=== PATIENT | female | born 1990 | race African-American/Black ===

== ENCOUNTER 2017-06-18 15:50 | Emergency (ER) | payer SELFPAY ==
--- OUTSIDE RECORDS SUMMARY | 2017-06-18 15:52 | XMS REPORT ---
:1990 [facility] Address [address] [place] [address] Dr. Perez. [address] [place] [address] Care Team Providers Name Role Phone Unavailable Unavailable Unavailable Problems This patient has no known problems. Allergies, Adverse Reactions, Alerts This patient has no known allergies or adverse reactions. Medications This patient has no known medications. Encounters Start End Encounter Admission Attending Care Care Encounter Date/Time Date/Time Type Type Clinicians Facility Department ID 2016-09-29 2016-10-04 Outpatient [facility] [id number] 00:00:00 00:00:00
--- OUTSIDE RECORDS SUMMARY | 2017-06-18 15:52 | XMS REPORT | Clinical Summary ---
:1990 Author Organization [facility] Address [address] [place] [address] Care Team Providers Name Role Phone Asked, No Pcp Primary Care Provider Unavailable Allergies No Known Allergies Current Medications Prescription Sig. Disp. Refills Start Date End Date Status predniSONE (DELTASONE) Take 3 tablets 15 tablet 0 11/02/2016 11/07/2016 20 mg tablet (60 mg total) by mouth daily for 5 days. diphenhydrAMINE Take 2 tablets 20 tablet 0 11/02/2016 11/07/2016 (BENADRYL) 25 mg tablet (50 mg total) by mouth every 6 (six) hours for 20 doses. famotidine (PEPCID) 20 Take 1 tablet 14 tablet 0 11/02/2016 11/09/2016 MG tablet (20 mg total) by mouth 2 (two) times a day for 7 days. Active Problems Not on file Encounters Date Type Specialty Care Team Description 11/02/2016 Emergency Emergency Medicine Nellie Grimes MD Rash ( Primary Dx) 06/19/2016 Emergency Emergency Medicine Marcial Hanley MD after 06/17/2016 Social History Tobacco Use Types Packs/Day Years Used Date Never Smoker Alcohol Use Drinks/Week oz/Week Comments No Sex Assigned at Date Recorded Not on file Last Filed Vital Signs Vital Sign Reading Time Taken Blood Pressure 110/66 11/02/2016 9:48 PM CDT Pulse 78 11/02/2016 9:48 PM CDT Temperature 36.8 C (98.3 F) 11/02/2016 9:48 PM CDT Respiratory Rate 18 11/02/2016 9:48 PM CDT Oxygen Saturation 100% 11/02/2016 9:48 PM CDT Inhaled Oxygen Concentration - - Weight - - Height 165.1 cm (5' 5") 11/02/2016 9:48 PM CDT Body Mass Index - - Plan of Treatment Not on file Results hCG qualitative, urine screen (06/19/2016 1:10 AM) Component Value Ref Range hCG qualitative, urine NegativeComment: Sensitivity of HCG test: 25 mIU/ml Specimen Performing Laboratory [facility] DEPARTMENT OF PATHOLOGY AND GENOMIC MEDICINE [id number] [place] [id number] Urine culture screen (06/19/2016 1:10 AM) Component Value Ref Range Color, UA Yellow Appearance, UA Clear Specific gravity, UA 1.023 1.001 - 1.030 pH, UA 7.0 5.0 - 9.0 Protein, UA Negative Negative Glucose, UA Negative Negative Ketones, UA Negative Negative Bilirubin, UA Negative Negative Blood, UA Negative Negative Nitrite, UA Negative Negative Urobilinogen, UA <2.0 <2.0 E.U./dL Leukocyte esterase, UA Moderate (A) Negative Epithelial cells, UA 2 /HPF WBC, UA 6 (H) 0 - 4 /HPF RBC, UA 4 (H) 0 - 2 /HPF Bacteria, UA Few None seen Yeast, UA None seen Yeast with pseudohyphae, UA None seen Urine culture isolate Mixed Gram positive arvind 10-3 cfu/ml Specimen Performing Laboratory Urine [facility] DEPARTMENT OF PATHOLOGY AND GENOMIC MEDICINE [address] [place] [address] Narrative Specimen Site is : Clean catch Specimen Source is : Urine Gram stain (06/19/2016 1:10 AM) Component Value Ref Range Gram stain result No WBC's Rare Gram negative rods Specimen Performing Laboratory Urine [facility] DEPARTMENT OF PATHOLOGY AND GENOMIC MEDICINE [address] [place] [address] Narrative Specimen Site is : Clean catch Specimen Source is : Urine after 06/17/2016
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
[2017-06-18 16:56] LABS: Urine Blood NEGATIVE (NEG); Urine Glucose NEGATIVE (NEG); Urine Protein 1+ (NEG); Urine Specific Gravity 1.025 (1.005-1.030)
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
== END 2017-06-18 17:14 | disposition home or self-care (01) ==
LOC: ER 15:50
DX: S02.2XXA Fracture of nasal bones, initial encounter for closed fracture (principal); Y04.0XXA Assault by unarmed brawl or fight, initial encounter; Y92.9 Unspecified place or not applicable
CPT/HCPCS: 70486; 76377; 81003; 81025; 99284

== ENCOUNTER 2017-09-25 14:45 | Emergency (ER) | payer SELFPAY ==
--- OUTSIDE RECORDS SUMMARY | 2017-09-25 14:49 | XMS REPORT ---
:1990 [facility] Address [address] [place] [address] Dr. Steen [address] [place] [id number] Care Team Providers Name Role Phone Unavailable Unavailable Unavailable Problems This patient has no known problems. Allergies, Adverse Reactions, Alerts This patient has no known allergies or adverse reactions. Medications This patient has no known medications. Encounters Start End Encounter Admission Attending Care Care Encounter Date/Time Date/Time Type Type Clinicians Facility Department ID 2016-09-29 2016-10-04 Outpatient [facility] [id number] 00:00:00 00:00:00
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
[2017-09-25 18:16] LABS: Urine Bacteria <20 /HPF (<20); Urine Culture Reflex Order NOT NEEDED; Urine Mucus 3+ /HPF (NONE SEEN); Urine RBC >50 /HPF (NONE SEEN)
[2017-09-25 18:16] LABS: Urine Blood 3+ (NEG); Urine Glucose NEGATIVE (NEG); Urine Protein 1+ (NEG); Urine Specific Gravity 1.025 (1.005-1.030); Urine pH 6.5 (5.0-7.0)
[2017-09-25] MEDS ORDERED: AZITHROMYCIN 250 MG TAB ONE (18:48)
[2017-09-25] MEDS ORDERED: CEFTRIAXONE 250 MG/VIAL ONE (18:48)
[2017-09-25] MEDS ORDERED: LIDOCAINE 1% MPF 2 ML AMPULE ONE (18:48)
--- NOTE | 2017-09-25 18:49 | EDPHYS ---
Physician Documentation [facility] Name: Marielle oJnes Age: 26 yrs Sex: Female : 1990 Arrival Date: 09/25/2017 Time: 14:50 Bed 8 Private MD: None, None ED Physician iRck Willard HPI: 09/25 15:39 This 26 yrs old Black Female presents to ER via Ambulatory with complaints of Urinary jmm Problem. 15:39 The patient presents with urinary symptoms, dysuria, vaginal discharge. Onset: The jmm symptoms/episode began/occurred gradually. This is a 26 year old female with a history of asthma and frequent uti's that presents to the ED with vaginal itching, discharge, pelvic pressure, dysuria. . Historical: - Allergies: 15:16 No Known Allergies; sg - Home Meds: 15:16 None [Active]; sg - PMHx: 15:16 Asthma; sg - PSHx: 15:16 None; sg - Immunization history:: Adult Immunizations up to date. - Social history:: Smoking status: Patient/guardian denies using tobacco. - Ebola Screening: : Patient negative for fever greater than or equal to 101.5 degrees Fahrenheit, and additional compatible Ebola Virus Disease symptoms Patient denies exposure to infectious person Patient denies travel to an Ebola-affected area in the 21 days before illness onset No symptoms or risks identified at this time. ROS: 15:39 Constitutional: Negative for fever, chills, and weight loss, Cardiovascular: Negative jmm for chest pain, palpitations, and edema, Respiratory: Negative for shortness of breath, cough, wheezing, and pleuritic chest pain. 15:39 : Positive for urinary symptoms, burning with urination, vaginal discharge, vaginal itching. 15:39 All other systems are negative. Exam: 15:39 Head/Face: atraumatic. Chest/axilla: Normal chest wall appearance and motion. jmm Cardiovascular: Regular rate and rhythm. No edema appreciated Respiratory: Normal respirations, no respiratory distress appreciated 15:39 Constitutional: The patient appears in no acute distress, alert, awake. 15:39 Abdomen/GI: Inspection: abdomen appears normal, Bowel sounds: normal, Palpation: abdomen is soft and non-tender, in all quadrants. 15:39 Back: ROM is normal. 15:39 Skin: Appearance: Color: normal in color. 15:39 Neuro: Orientation: is normal, Mentation: is normal, Memory: is normal. 15:39 Psych: Behavior/mood is pleasant, cooperative. 15:39 : CVA tenderness, is absent, Pelvic Exam: External exam: is normal, Speculum exam: rosi mild bleeding, bimanual exam reveals left adnexal tenderness. Vital Signs: 15:13 BP 117 / 82; Pulse 95 MON; Resp 17 S; Pulse Ox 99% on R/A; Weight 57.15 kg (R); Height sg 5 ft. 3 in. (160.02 cm) (R); Pain 4/10; 18:11 BP 120 / 88; Pulse 84; Resp 14; Pulse Ox 100% on R/A; Pain 0/10; em1 15:13 Body Mass Index 22.32 (57.15 kg, 160.02 cm) sg MDM: 15:34 Patient medically screened. [facility] 18:44 Data reviewed: vital signs, nurses notes, radiologic studies, ultrasound. Counseling: I rosi had a detailed discussion with the patient and/or guardian regarding: the historical points, exam findings, and any diagnostic results supporting the discharge/admit diagnosis, radiology results, the need for outpatient follow up, to return to the emergency department if symptoms worsen or persist or if there are any questions or concerns that arise at home. ED course: US nml. Patient will be treated for PID. patient prescribed oral antibiotics. Advised to follow up with OB. Otherwise given strict return precautions. . 09/25 15:36 Order name: Urine Microscopic Only [facility] 09/25 15:36 Order name: Wet Prep [facility] 09/25 15:36 Order name: GC (GONORR/CHLAMYDIA) Probe [facility] 09/25 15:36 Order name: Urine Microscopic Only; Complete Time: 18:43 [facility] 09/25 15:36 Order name: Wet Prep; Complete Time: 17:12 [facility] 09/25 15:36 Order name: GC (Reagan/Chl) Probe CX/URE [facility] 09/25 15:36 Order name: Urine Dipstick-Ancillary (obtain specimen); Complete Time: 18:08 [facility] 09/25 17:20 Order name: US Pelvis Complete; Complete Time: 18:53 [facility] 09/25 18:06 Order name: Urine Dipstick--Ancillary (enter results) eb 08/11 18:06 Order name: Urine --Ancillary (enter results); Complete Time: 18:43 eb 09/25 18:07 Order name: Urine Dipstick-Ancillary; Complete Time: 18:43 EDMS Administered Medications: 18:51 Drug: Rocephin (cefTRIAXone) 250 mg Route: IM; Site: right gluteus; sv 18:51 Drug: AZITHromycin 1 grams Route: PO; sv Disposition: 09/26 07:10 Co-signature as Attending Physician, Rick Willard MD. rn Disposition: 09/25/17 18:48 Discharged to Home. Impression: Pelvic Pain, Dysuria. - Condition is Stable. - Discharge Instructions: Dysuria, Pelvic Pain, Female. - Prescriptions for Cephalexin 500 mg Oral Capsule - take 1 capsule by ORAL route every 12 hours for 7 days; 14 capsule. - Medication Reconciliation Form, Thank You Letter, Antibiotic Education, Prescription Opioid Use, Work release form form. - Follow up: Cesia Davies MD; When: 2 - 3 days; Reason: Recheck today's complaints, Continuance of care, Re-evaluation by your physician. Signatures: Dispatcher [employer] EDMS Rosa Avery RN RN sv Gay, Steven, RN RN sg Rajendra Esquivel PA PA [facility] Rick Willard MD MD rn Knox, Taylor, RN RN tl2 Corrections: (The following items were deleted from the chart) 09/25 19:14 18:48 09/25/2017 18:48 Discharged to Home. Impression: Pelvic Pain; Dysuria. Condition tl2 is Stable. Forms are Medication Reconciliation Form, Thank You Letter, Antibiotic Education, Prescription Opioid Use. Follow up: Cesia Davies; When: 2 - 3 days; Reason: Recheck today's complaints, Continuance of care, Re-evaluation by your physician. [email or web address]
--- NOTE | 2017-09-25 18:49 | ER ---
Nurse's Notes [facility] Name: Marielle Jones Age: 26 yrs Sex: Female : 1990 Arrival Date: 09/25/2017 Time: 14:50 Bed 8 Private MD: None, None Diagnosis: Pelvic Pain;Dysuria Presentation: 09/25 15:14 Presenting complaint: Patient states: Pressure in the pubic area, worsens with sg urination, hx of frequent urinary tract infections, so i think this is what it might be. have tried treating it at home with AZO, Cran tablets, Monastat, no relief. Transition of care: patient was not received from another setting of care. Onset of symptoms was September 25, 2017. Risk Assessment: Do you want to hurt yourself or someone else? Patient reports no desire to harm self or others. Initial Sepsis Screen: Does the patient meet any 2 criteria? No. Patient's initial sepsis screen is negative. Does the patient have a suspected source of infection? No. Patient's initial sepsis screen is negative. Care prior to arrival: None. 15:14 Method Of Arrival: Ambulatory sg 15:14 Acuity: CODY 4 sg Historical: - Allergies: 15:16 No Known Allergies; sg - Home Meds: 15:16 None [Active]; sg - PMHx: 15:16 Asthma; sg - PSHx: 15:16 None; sg - Immunization history:: Adult Immunizations up to date. - Social history:: Smoking status: Patient/guardian denies using tobacco. - Ebola Screening: : Patient negative for fever greater than or equal to 101.5 degrees Fahrenheit, and additional compatible Ebola Virus Disease symptoms Patient denies exposure to infectious person Patient denies travel to an Ebola-affected area in the 21 days before illness onset No symptoms or risks identified at this time. Screenin:40 Abuse screen: Denies threats or abuse. Denies injuries from another. Nutritional sv screening: No deficits noted. Tuberculosis screening: No symptoms or risk factors identified. Fall Risk None identified. Assessment: 15:20 General: Appears in no apparent distress. comfortable, slender, well groomed, well sg developed, well nourished, Behavior is calm, cooperative, appropriate for age. Pain: Complains of pain in suprapubic area Quality of pain is described as pressure, worsens with urination. Neuro: Level of Consciousness is awake, alert, obeys commands, Oriented to person, place, time, situation, Speech is normal, Facial symmetry appears normal. Cardiovascular: Capillary refill is brisk in bilateral fingers Patient's skin is warm and dry. Chest pain is denied. Respiratory: Airway is patent Respiratory effort is even, unlabored, Respiratory pattern is regular, symmetrical, Breath sounds are clear. GI: Abdomen is flat, non-distended, Bowel sounds. : Reports pain in suprapubic area with urination, vaginal itching. EENT: No signs and/or symptoms were reported regarding the EENT system. Derm: Skin is intact, is healthy with good turgor, Skin is dry, Skin is normal, Skin temperature is warm. Musculoskeletal: No signs and/or symptoms reported regarding the musculoskeletal system. 16:40 Reassessment: Patient appears in no apparent distress at this time. No changes from sv previously documented assessment. Patient and/or family updated on plan of care and expected duration. Pain level reassessed. Patient is alert, oriented x 3, equal unlabored respirations, skin warm/dry/pink. 18:51 Reassessment: Patient appears in no apparent distress at this time. No changes from sv previously documented assessment. Patient and/or family updated on plan of care and expected duration. Pain level reassessed. Patient is alert, oriented x 3, equal unlabored respirations, skin warm/dry/pink. Vital Signs: 15:13 BP 117 / 82; Pulse 95 MON; Resp 17 S; Pulse Ox 99% on R/A; Weight 57.15 kg (R); Height sg 5 ft. 3 in. (160.02 cm) (R); Pain 4/10; 18:11 BP 120 / 88; Pulse 84; Resp 14; Pulse Ox 100% on R/A; Pain 0/10; em1 15:13 Body Mass Index 22.32 (57.15 kg, 160.02 cm) ED Course: 14:50 Patient arrived in ED. sb2 14:51 None, None is Private Physician. sb2 15:07 Rajendra Esquivel PA is PHCP. m 15:07 Rikc Willard MD is Attending Physician. [facility] 15:13 Arm band placed on. sg 15:15 Triage completed. sg 16:40 Patient has correct armband on for positive identification. Placed in gown. Bed in low sv position. Door closed. Warm blanket given. Head of bed elevated. 16:40 Assist provider with pelvic exam: Set up pelvic tray. Performed by Rajendra LIAO Specimens sent to lab. Patient tolerated well. 17:59 Cash Mckeon, RN is Primary Nurse. sg 18:08 Urine Dipstick--Ancillary (enter results) Sent. sv 18:23 Ultrasound completed. Patient tolerated well. sg3 18:29 US Pelvis Complete In Process Unspecified. EDMS 18:47 Cesia Davies MD is Referral Physician. jmm 18:51 GC (GONORR/CHLAMYDIA) Probe Sent. sv 18:51 Wet Prep Sent. sv 18:51 Urine Microscopic Only Sent. sv 19:00 Patient did not have IV access during this emergency room visit. sg Administered Medications: 18:51 Drug: Rocephin (cefTRIAXone) 250 mg Route: IM; Site: right gluteus; sv 18:51 Drug: AZITHromycin 1 grams Route: PO; sv Outcome: 18:48 Discharge ordered by . [facility] 19:00 Discharged to home ambulatory, with friend. sg 19:00 Condition: good 19:00 Discharge instructions given to patient, Instructed on discharge instructions, follow up and referral plans. no drinking with medication, no driving heavy equipment, medication usage, safe sex practices, safety practices, Demonstrated understanding of instructions, follow-up care, medications, Prescriptions given X 1. 19:14 Patient left the ED. tl2 Signatures: Dispatcher [employer] Rosa Jones RN RN sv Gay, Steven, RN Rajendra Pelletier PA PA jmm Martinez, Eric em1 Belen Davis RN RN tl2 Melanie King sg3 Deja Fitzgerald sb2
--- NOTE | 2017-09-25 18:49 | RAD REPORT ---
EXAM DESCRIPTION: US - Pelvis Complete - 09/25/2017 6:29 pm CLINICAL HISTORY: pelvic pain Pelvic pain. COMPARISON: None FINDINGS: The uterus is normal in size, shape and echotexture. The uterus measures 6.9 x 6.1 x 3.9 c m. The endometrial stripe measures 8 mm, normal. Both ovaries are normal in size, shape and echotexture. The right ovary measures 4.7 x 2.2 x 2.2 cm. The left ovary measures 3.1 x 1.8 x 1.7 cm. No ovarian or parovarian lesions. No adnexal masses. Normal Doppler blood flow was demonstrated to both ovaries. No significant pelvic ascites. IMPRESSION: Unremarkable study.
[2017-09-29 11:21] LABS: C.trachomatis RNA,TMA Detected (Not Detected)
== END 2017-09-25 19:14 | disposition home or self-care (01) ==
LOC: ER 14:45
DX: R10.2 Pelvic and perineal pain (principal); R30.0 Dysuria
CPT/HCPCS: 76856; 81003; 81015; 81025; 87210; 87490; 87590; 96372; 99284; J0696; J2001

== ENCOUNTER 2018-02-01 15:02 | Emergency (ER) | payer SELFPAY ==
--- OUTSIDE RECORDS SUMMARY | 2018-02-01 15:06 | XMS REPORT ---
:1990 [facility] Address [address] [place] [address] Dr. Ste[address] [place] [id number] Care Team Providers Name Role Phone Unavailable Unavailable Unavailable Problems This patient has no known problems. Allergies, Adverse Reactions, Alerts This patient has no known allergies or adverse reactions. Medications This patient has no known medications. Encounters Start End Encounter Admission Attending Care Care Encounter Date/Time Date/Time Type Type Clinicians Facility Department ID 2016-09-29 2016-10-04 Outpatient [facility] [id number] 00:00:00 00:00:00
--- OUTSIDE RECORDS SUMMARY | 2018-02-01 15:06 | XMS REPORT | Clinical Summary ---
:1990 Author Organization [facility] Address [address] [place] [address] Care Team Providers Name Role Phone Asked, No Pcp Primary Care Provider Unavailable Allergies No Known Allergies Medications Not on file Active Problems Not on file Social History Tobacco Use Types Packs/Day Years Used Date Never Smoker Alcohol Use Drinks/Week oz/Week Comments No Sex Assigned at Date Recorded Not on file Job Start Date Occupation Industry Not on file Not on file Not on file Travel History Travel Start Travel End No recent travel history available. Last Filed Vital Signs Not on file Plan of Treatment Not on file Results Not on fileafter 01/31/2017 Advance Directives Patient has advance care planning documents on file. For more information, please contact:[address] [address]
[2018-02-01 16:08] LABS: Urine Blood NEGATIVE (NEG); Urine Glucose NEGATIVE (NEG); Urine Protein NEGATIVE (NEG); Urine Specific Gravity >1.030 (1.005-1.030); Urine pH 5.5 (5.0-7.0)
[2018-02-01 16:10] LABS: Urine Bacteria 20-50 /HPF (<20); Urine Culture Reflex Order REFLEXED; Urine RBC <5 /HPF (NONE SEEN)
[2018-02-01] MEDS ORDERED: metroNIDAZOLE 500 MG TABLET ONE ×2 (16:48→16:51)
[2018-02-01] MEDS ORDERED: FLUCONAZOLE 100 MG TAB ONE (16:48)
--- NOTE | 2018-02-01 16:49 | ER ---
Nurse's Notes [facility] Name: Marielle Jones Age: 27 yrs Sex: Female : 1990 Arrival Date: 02/01/2018 Time: 15:06 Bed 18 Private MD: None, None Diagnosis: Vaginitis, vulvitis and vulvovaginitis in diseases classified elsewhere Presentation: 02/01 15:10 Presenting complaint: Patient states: vaginal itching and white discharge for the past ch 2 days. sexually active, without protection. Transition of care: patient was not received from another setting of care. Onset of symptoms was January 30, 2018. Risk Assessment: Do you want to hurt yourself or someone else? Patient reports no desire to harm self or others. Initial Sepsis Screen: Does the patient meet any 2 criteria? No. Patient's initial sepsis screen is negative. Does the patient have a suspected source of infection? No. Patient's initial sepsis screen is negative. Care prior to arrival: None. 15:10 Method Of Arrival: Ambulatory 15:10 Acuity: CODY 4 Triage Assessment: 15:11 General: Appears in no apparent distress. comfortable, Behavior is calm, cooperative. ch Pain: Denies pain. : Reports vaginal itching. 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 - Social history:: Smoking status: Patient/guardian denies using tobacco, Patient uses alcohol, occasionally. - Ebola Screening: : Patient negative for fever greater than or equal to 101.5 degrees Fahrenheit, and additional compatible Ebola Virus Disease symptoms Patient denies exposure to infectious person Patient denies travel to an Ebola-affected area in the 21 days before illness onset No symptoms or risks identified at this time. Screenin:03 Abuse screen: Denies threats or abuse. Denies injuries from another. Nutritional mg2 screening: No deficits noted. Tuberculosis screening: No symptoms or risk factors identified. Fall Risk None identified. Assessment: 16:02 General: Appears in no apparent distress. comfortable, Behavior is calm, cooperative. mg2 Pain: Denies pain. Neuro: Level of Consciousness is awake, alert, obeys commands, Oriented to person, place, time, situation. Cardiovascular: Capillary refill < 3 seconds Patient's skin is warm and dry. Respiratory: Airway is patent Respiratory effort is even, unlabored, Respiratory pattern is regular, symmetrical. GI: No signs and/or symptoms were reported involving the gastrointestinal system. : No signs and/or symptoms were reported regarding the genitourinary system. : Reports vaginal itching, since for awhile. EENT: No signs and/or symptoms were reported regarding the EENT system. Derm: Skin is intact, is healthy with good turgor, Skin is pink, warm \T\ dry. normal. Musculoskeletal: No signs and/or symptoms reported regarding the musculoskeletal system. 16:46 Reassessment: Patient appears in no apparent distress at this time. Patient and/or mg2 family updated on plan of care and expected duration. Pain level reassessed. Patient is alert, oriented x 3, equal unlabored respirations, skin warm/dry/pink. Vital Signs: 15:11 BP 117 / 79; Pulse 71; Resp 16; Temp 97.9; Pulse Ox 99% on R/A; Weight 54.43 kg; Height 5 ft. 3 in. (160.02 cm); Pain 0/10; 16:46 BP 120 / 80; Pulse 89; Resp 18; Pulse Ox 100% on R/A; Pain 0/10; mg2 15:11 Body Mass Index 21.26 (54.43 kg, 160.02 cm) ED Course: 15:06 Patient arrived in ED. sb2 15:06 None, None is Private Physician. sb2 15:07 Viki Ballard FNP-C is [facility]. snw 15:07 Cristhian Sims MD is Attending Physician. snw 15:11 Triage completed. ch 15:11 Arm band placed on left wrist. Patient placed in an exam room, on a stretcher. ch 15:31 Keanu Moody, DEISY is Primary Nurse. mg2 16:03 Patient has correct armband on for positive identification. mg2 16:03 No provider procedures requiring assistance completed. Patient did not have IV access mg2 during this emergency room visit. Administered Medications: 16:45 Drug: DiFLUcan 200 mg Route: PO; mg2 17:04 Follow up: Response: No adverse reaction; Medication administered at discharge. mg2 16:46 Drug: Flagyl 1 grams Route: PO; mg2 17:04 Follow up: Response: No adverse reaction; Medication administered at discharge. mg2 16:46 Drug: Flagyl 1 grams Route: PO; mg2 17:04 Follow up: Response: No adverse reaction; Medication administered at discharge. mg2 Outcome: 16:48 Discharge ordered by . lefty 17:05 Discharged to home ambulatory. mg2 17:05 Condition: stable 17:05 Discharge instructions given to patient, Instructed on discharge instructions, follow up and referral plans. medication usage, Demonstrated understanding of instructions, follow-up care, medications, Prescriptions given X 1. 17:05 Patient left the ED. mg2 Signatures: Jazmine Avalos, RN RN Viki Ballard, ELECTRICAL ENGINEERING DESIGNER-C ELECTRICAL ENGINEERING DESIGNER-Csnw Deja Fitzgerald sb2 Keanu Moody RN RN mg2 Corrections: (The following items were deleted from the chart) 15:12 15:10 Presenting complaint: Patient states: vaginal itching and white discharge for the ch past 2 days. 15:13 15:10 Acuity: CODY 5 ch ch
--- NOTE | 2018-02-01 16:49 | EDPHYS ---
Physician Documentation [facility] Name: Marielle Jones Age: 27 yrs Sex: Female : 1990 Arrival Date: 02/01/2018 Time: 15:06 Bed 18 Private MD: None, None ED Physician Cristhian Sims HPI: 02/01 15:38 This 27 yrs old Black Female presents to ER via Ambulatory with complaints of Vaginal snw Discharge, Vaginal Itching. 15:38 The patient presents with perineal itching, vaginal discharge, patient has had similar snw discharge in the past, pt states she has had UTI, BV, and yeast infections in the past. Onset: The symptoms/episode began/occurred suddenly, 4 day(s) ago, and became persistent. Associated signs and symptoms: Pertinent positives: white vag dc. Severity of symptoms: At their worst the symptoms were itching "really bad". The patient has experienced similar episodes in the past. The patient has not recently seen a physician. 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 - Social history:: Smoking status: Patient/guardian denies using tobacco, Patient uses alcohol, occasionally. - Ebola Screening: : Patient negative for fever greater than or equal to 101.5 degrees Fahrenheit, and additional compatible Ebola Virus Disease symptoms Patient denies exposure to infectious person Patient denies travel to an Ebola-affected area in the 21 days before illness onset No symptoms or risks identified at this time. ROS: 15:38 Constitutional: Negative for fever, chills, and weight loss, Eyes: Negative for injury, snw pain, redness, and discharge, ENT: Negative for injury, pain, and discharge, Neck: Negative for injury, pain, and swelling, Cardiovascular: Negative for chest pain, palpitations, and edema, Respiratory: Negative for shortness of breath, cough, wheezing, and pleuritic chest pain, Abdomen/GI: Negative for abdominal pain, nausea, vomiting, diarrhea, and constipation, Back: Negative for injury and pain, MS/Extremity: Negative for injury and deformity, Skin: Negative for injury, rash, and discoloration, Neuro: Negative for headache, weakness, numbness, tingling, and seizure, Psych: Negative for depression, anxiety, suicide ideation, homicidal ideation, and hallucinations. 15:38 : Positive for vaginal discharge, vaginal itching. Exam: 15:37 Constitutional: This is a well developed, well nourished patient who is awake, alert, snw and in no acute distress. Head/Face: Normocephalic, atraumatic. Eyes: Pupils equal round and reactive to light, extra-ocular motions intact. Lids and lashes normal. Conjunctiva and sclera are non-icteric and not injected. Cornea within normal limits. Periorbital areas with no swelling, redness, or edema. ENT: Nares patent. No nasal discharge, no septal abnormalities noted. Tympanic membranes are normal and external auditory canals are clear. Oropharynx with no redness, swelling, or masses, exudates, or evidence of obstruction, uvula midline. Mucous membranes moist. Neck: Trachea midline, no thyromegaly or masses palpated, and no cervical lymphadenopathy. Supple, full range of motion without nuchal rigidity, or vertebral point tenderness. No Meningismus. Chest/axilla: Normal chest wall appearance and motion. Nontender with no deformity. No lesions are appreciated. Cardiovascular: Regular rate and rhythm with a normal S1 and S2. No gallops, murmurs, or rubs. Normal PMI, no JVD. No pulse deficits. Respiratory: Lungs have equal breath sounds bilaterally, clear to auscultation and percussion. No rales, rhonchi or wheezes noted. No increased work of breathing, no retractions or nasal flaring. Abdomen/GI: Soft, non-tender, with normal bowel sounds. No distension or tympany. No guarding or rebound. No evidence of tenderness throughout. Back: No spinal tenderness. No costovertebral tenderness. Full range of motion. Pelvic Exam: Normal external genitalia. White. mucoid discharge, fishy odor. Skin: Warm, dry with normal turgor. Normal color with no rashes, no lesions, and no evidence of cellulitis. MS/ Extremity: Pulses equal, no cyanosis. Neurovascular intact. Full, normal range of motion. Neuro: Awake and alert, GCS 15, oriented to person, place, time, and situation. Cranial nerves II-XII grossly intact. Motor strength 5/5 in all extremities. Sensory grossly intact. Cerebellar exam normal. Normal gait. Vital Signs: 15:11 BP 117 / 79; Pulse 71; Resp 16; Temp 97.9; Pulse Ox 99% on R/A; Weight 54.43 kg; Height ch 5 ft. 3 in. (160.02 cm); Pain 0/10; 16:46 BP 120 / 80; Pulse 89; Resp 18; Pulse Ox 100% on R/A; Pain 0/10; mg2 15:11 Body Mass Index 21.26 (54.43 kg, 160.02 cm) ch MDM: 15:13 Patient medically screened. ngoc 16:49 Data reviewed: vital signs, nurses notes. Data interpreted: Pulse oximetry: on room air snw is 100 %. Interpretation: normal. Counseling: I had a detailed discussion with the patient and/or guardian regarding: the historical points, exam findings, and any diagnostic results supporting the discharge/admit diagnosis, the presence of at least one elevated blood pressure reading (>120/80) during this emergency department visit, lab results, the need for outpatient follow up, to return to the emergency department if symptoms worsen or persist or if there are any questions or concerns that arise at home. Special discussion: Based on the history and exam findings, there is no indication for further emergent testing or inpatient evaluation. I discussed with the patient/guardian the need to see the primary care provider for further evaluation of the symptoms. 02/01 15:30 Order name: Urine Microscopic Only; Complete Time: 16:14 snw 02/01 16:02 Order name: Urine Dipstick--Ancillary (enter results); Complete Time: 16:14 bd 02/01 16:02 Order name: Urine --Ancillary (enter results); Complete Time: 16:14 bd 02/01 16:12 Order name: Urine Culture EDMO 02/01 15:30 Order name: Urine Test (obtain specimen); Complete Time: 15:36 snw 02/01 15:30 Order name: Urine Dipstick-Ancillary (obtain specimen); Complete Time: 15:36 snw Administered Medications: 16:45 Drug: DiFLUcan 200 mg Route: PO; mg2 17:04 Follow up: Response: No adverse reaction; Medication administered at discharge. mg2 16:46 Drug: Flagyl 1 grams Route: PO; mg2 17:04 Follow up: Response: No adverse reaction; Medication administered at discharge. mg2 16:46 Drug: Flagyl 1 grams Route: PO; mg2 17:04 Follow up: Response: No adverse reaction; Medication administered at discharge. mg2 Disposition: 02/02 06:40 Co-signature as Attending Physician, Cristhian Sims MD I agree with the assessment and ngoc plan of care. Disposition: 02/01/18 16:48 Discharged to Home. Impression: Vaginitis, vulvitis and vulvovaginitis in diseases classified elsewhere. - Condition is Stable. - Discharge Instructions: Bacterial Vaginosis, How to Take a Sitz Bath, Vaginal Yeast Infection, Pediatric, Vaginitis. - Prescriptions for Fluconazole 200 mg Oral Tablet - take 1 tablet by ORAL route once wkly; 2 tablet. - Medication Reconciliation Form, Thank You Letter, Antibiotic Education, Prescription Opioid Use form. - Follow up: Private Physician; When: 1 - 2 days; Reason: Recheck today's complaints, Continuance of care, Re-evaluation by your physician. Follow up: Emergency Department; When: As needed; Reason: Worsening of condition. Signatures: Dispatcher [employer] EDJazmine Najera, Cristhian Alonzo RN, ch, MD MD cha Therrien, Shelly, DROP HAMMER SETTER UP-C DROP HAMMER SETTER UP-Csnw Keanu Moody RN RN mg2 Corrections: (The following items were deleted from the chart) 02/01 17:05 16:48 02/01/2018 16:48 Discharged to Home. Impression: Vaginitis, vulvitis and mg2 vulvovaginitis in diseases classified elsewhere. Condition is Stable. Forms are Medication Reconciliation Form, Thank You Letter, Antibiotic Education, Prescription Opioid Use. Follow up: Private Physician; When: 1 - 2 days; Reason: Recheck today's complaints, Continuance of care, Re-evaluation by your physician. Follow up: Emergency Department; When: As needed; Reason: Worsening of condition. snw
== END 2018-02-01 17:05 | disposition home or self-care (01) ==
LOC: ER 15:02
DX: N77.1 Vaginitis, vulvitis and vulvovaginitis in diseases classified elsewhere (principal)
CPT/HCPCS: 81003; 81015; 81025; 87086; 87088; 99283

== ENCOUNTER 2018-02-16 19:29 | Emergency (ER) | payer SELFPAY ==
--- OUTSIDE RECORDS SUMMARY | 2018-02-16 19:31 | XMS REPORT | Clinical Summary ---
:1990 [facility] Address [address] [place] [address] Care Team Providers Name Role Phone Asked, No Pcp Primary Care Provider Unavailable Allergies No Known Allergies Medications Not on file Active Problems Not on file Encounters Date Type Specialty Care Team Description 02/16/2018 Emergency Emergency Medicine after 02/15/2017 Social History Tobacco Use Types Packs/Day Years Used Date Never Smoker Alcohol Use Drinks/Week oz/Week Comments No Sex Assigned at Date Recorded Not on file Job Start Date Occupation Industry Not on file Not on file Not on file Travel History Travel Start Travel End No recent travel history available. 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 For more information, please contact:[address] [address]
--- OUTSIDE RECORDS SUMMARY | 2018-02-16 19:31 | XMS REPORT ---
:1990 [facility] Address [address] [place] [address] Dr. Ste[address] [place] [id number] Care Team Providers Name Role Phone Unavailable Unavailable Unavailable Problems This patient has no known problems. Allergies, Adverse Reactions, Alerts This patient has no known allergies or adverse reactions. Medications This patient has no known medications. Encounters Start End Encounter Admission Attending Care Care Encounter Date/Time Date/Time Type Type Clinicians Facility Department ID 2016-09-29 2016-10-04 Outpatient [facility] [id number] 00:00:00 00:00:00
[2018-02-16 21:29] LABS: Urine Bacteria >50 /HPF (<20); Urine Culture Reflex Order NOT NEEDED; Urine RBC <5 /HPF (NONE SEEN)
[2018-02-16 21:30] LABS: Urine Mucus 3+ /HPF (NONE SEEN)
--- NOTE | 2018-02-16 21:46 | ER ---
Nurse's Notes [facility] Name: Marielle Jones Age: 27 yrs Sex: Female : 1990 Arrival Date: 02/16/2018 Time: 19:52 Bed 6 Private MD: Diagnosis: STD exposure Presentation: 02/16 20:22 Presenting complaint: Patient states: Reports being exposed to chlamydia on Wednesday. aj Patient also reports that her vaginal symptoms have not full resolved since her last visit 02/01 for similar complaint. Transition of care: patient was not received from another setting of care. Onset of symptoms was February 16, 2018. Risk Assessment: Do you want to hurt yourself or someone else? Patient reports no desire to harm self or others. Initial Sepsis Screen: Does the patient meet any 2 criteria? No. Patient's initial sepsis screen is negative. Does the patient have a suspected source of infection? No. Patient's initial sepsis screen is negative. Care prior to arrival: None. 20:22 Method Of Arrival: Ambulatory 20:22 Acuity: CODY 3 aj Triage Assessment: 20:23 General: Appears in no apparent distress. comfortable, Behavior is calm, cooperative, aj appropriate for age. Pain: Denies pain. Neuro: Level of Consciousness is awake, alert, obeys commands, Oriented to person, place, time, situation, Appropriate for age. Respiratory: Airway is patent Respiratory effort is even, unlabored, Respiratory pattern is regular, symmetrical. : Reports vaginal itching. Derm: Skin is intact, is healthy with good turgor, Skin is pink, warm \T\ dry. normal. 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 - Social history:: Smoking status: Patient/guardian denies using tobacco. - Ebola Screening: : Patient negative for fever greater than or equal to 101.5 degrees Fahrenheit, and additional compatible Ebola Virus Disease symptoms Patient denies exposure to infectious person Patient denies travel to an Ebola-affected area in the 21 days before illness onset No symptoms or risks identified at this time. Screenin:55 Abuse screen: Denies threats or abuse. Denies injuries from another. Nutritional ak1 screening: No deficits noted. Tuberculosis screening: No symptoms or risk factors identified. Fall Risk None identified. Assessment: 20:55 Reassessment: pt called from [facility] and sent to obtain a urine sample. ak1 21:02 Reassessment: Patient appears in no apparent distress at this time. General: Appears in ak1 no apparent distress. Pain: Denies pain. Neuro: No deficits noted. Cardiovascular: No deficits noted. Respiratory: No deficits noted. GI: No signs and/or symptoms were reported involving the gastrointestinal system. Abdomen is flat. : pt stated she found out today that her partner she had intercourse with on Wednesday was dx chlamydia. 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 pt denies any vaginal discharge, denies any vaginal pain, denies any pain with urination, denies any abd pain. EENT: No signs and/or symptoms were reported regarding the EENT system. Derm: No signs and/or symptoms reported regarding the dermatologic system. Musculoskeletal: No signs and/or symptoms reported regarding the musculoskeletal system. Vital Signs: 20:23 BP 114 / 80; Pulse 102; Resp 20; Temp 98.4; Pulse Ox 100% on R/A; Weight 54.43 kg; aj Height 5 ft. 3 in. (160.02 cm); 21:02 BP 112 / 86; Pulse 109; Resp 18; Pulse Ox 100% on R/A; ak1 21:47 BP 110 / 84; Pulse 100; Resp 18; Temp 98.4; Pulse Ox 100% on R/A; Pain 0/10; ak1 20:23 Body Mass Index 21.26 (54.43 kg, 160.02 cm) ED Course: 19:52 Patient arrived in ED. es 20:23 Triage completed. aj 20:23 Arm band placed on right wrist. Patient placed in waiting room, Patient notified of wait time. 20:54 Melissa Anderson, RN is Primary Nurse. ak1 21:00 Orville Benton MD is Attending Physician. tw4 21:06 Patient has correct armband on for positive identification. Bed in low position. Call ak1 light in reach. Side rails up X 1. Pulse ox on. NIBP on. Door closed. Lights dimmed. 21:42 Urine Dipstick--Ancillary (enter results) Sent. ak1 21:48 No provider procedures requiring assistance completed. Patient did not have IV access ak1 during this emergency room visit. Administered Medications: No medications were administered Outcome: 21:45 Discharge ordered by . tw4 21:48 Discharged to home ambulatory. ak1 21:48 Condition: good 21:48 Discharge instructions given to patient, Instructed on discharge instructions, follow up and referral plans. no drinking with medication, no driving heavy equipment, medication usage, safe sex practices, control, Demonstrated understanding of instructions, follow-up care, medications, Prescriptions given X 1. 21:57 Patient left the ED. ak1 Signatures: Sarahi Monsalve, RN Crista Jones Amber RN RN ak1 Orville Benton MD MD tw4
--- NOTE | 2018-02-16 21:46 | EDPHYS ---
Physician Documentation [facility] Name: Marielle Jones Age: 27 yrs Sex: Female : 1990 Arrival Date: 02/16/2018 Time: 19:52 Bed 6 Private MD: ED Physician Orville Benton HPI: 02/17 02:40 This 27 yrs old Black Female presents to ER via Ambulatory with complaints of STD tw4 Exposure. 02:40 The patient presents with a possible exposure to a sexually transmitted disease. Onset: tw4 The symptoms/episode began/occurred today. Modifying factors: The symptoms are alleviated by nothing, the symptoms are aggravated by nothing. Associated signs and symptoms: The patient has no apparent associated signs or symptoms. Severity of symptoms: At their worst the symptoms were moderate, in the emergency department the symptoms. The patient is sexually active, reportedly has a single partner. The patient has not experienced similar symptoms in the past. 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 - Social history:: Smoking status: Patient/guardian denies using tobacco. - Ebola Screening: : Patient negative for fever greater than or equal to 101.5 degrees Fahrenheit, and additional compatible Ebola Virus Disease symptoms Patient denies exposure to infectious person Patient denies travel to an Ebola-affected area in the 21 days before illness onset No symptoms or risks identified at this time. ROS: 02/17 02:40 Positive for vaginal discharge, Negative for injury or acute deformity, urinary tw4 symptoms, urinary frequency, hematuria, pelvic pain, burning with urination, difficulty urinating, bladder incontinence, vaginal itching, menstrual abnormality. Constitutional: Negative for fever, chills, and weight loss, Eyes: Negative for injury, pain, redness, and discharge, Cardiovascular: Negative for chest pain, palpitations, and edema, Respiratory: Negative for shortness of breath, cough, wheezing, and pleuritic chest pain, Abdomen/GI: Negative for abdominal pain, nausea, vomiting, diarrhea, and constipation, Back: Negative for injury and pain. : Positive for vaginal discharge, vaginal itching. Exam: 02:40 Constitutional: This is a well developed, well nourished patient who is awake, alert, tw4 and in no acute distress. Head/Face: Normocephalic, atraumatic. Chest/axilla: Normal chest wall appearance and motion. Nontender with no deformity. No lesions are appreciated. Cardiovascular: Regular rate and rhythm with a normal S1 and S2. No gallops, murmurs, or rubs. Normal PMI, no JVD. No pulse deficits. Respiratory: Lungs have equal breath sounds bilaterally, clear to auscultation and percussion. No rales, rhonchi or wheezes noted. No increased work of breathing, no retractions or nasal flaring. Abdomen/GI: Soft, non-tender, with normal bowel sounds. No distension or tympany. No guarding or rebound. No evidence of tenderness throughout. Back: No spinal tenderness. No costovertebral tenderness. Full range of motion. MS/ Extremity: Pulses equal, no cyanosis. Neurovascular intact. Full, normal range of motion. Neuro: Awake and alert, GCS 15, oriented to person, place, time, and situation. Cranial nerves II-XII grossly intact. Motor strength 5/5 in all extremities. Sensory grossly intact. Cerebellar exam normal. Normal gait. Vital Signs: 02/16 20:23 BP 114 / 80; Pulse 102; Resp 20; Temp 98.4; Pulse Ox 100% on R/A; Weight 54.43 kg; aj Height 5 ft. 3 in. (160.02 cm); 21:02 BP 112 / 86; Pulse 109; Resp 18; Pulse Ox 100% on R/A; ak1 21:47 BP 110 / 84; Pulse 100; Resp 18; Temp 98.4; Pulse Ox 100% on R/A; Pain 0/10; ak1 20:23 Body Mass Index 21.26 (54.43 kg, 160.02 cm) aj MDM: 21:00 Patient medically screened. tw4 02/17 02:40 Differential diagnosis: urinary tract infection, vaginosis. Data reviewed: vital signs, tw4 nurses notes. Data interpreted: Pulse oximetry: Interpretation: normal. Counseling: I had a detailed discussion with the patient and/or guardian regarding: the historical points, exam findings, and any diagnostic results supporting the discharge/admit diagnosis. Special discussion: I discussed with the patient/guardian in detail that at this point there is no indication for admission to the hospital. It is understood, however, that if the symptoms persist or worsen the patient needs to return immediately for re-evaluation. 02/16 20:56 Order name: Urine Culture [facility] 02/16 20:56 Order name: Urine Microscopic Only; Complete Time: 21:44 [facility] 02/16 20:56 Order name: Urine Dipstick-Ancillary (obtain specimen); Complete Time: 21:06 [facility] 02/16 21:37 Order name: Urine Dipstick--Ancillary (enter results) 02/16 21:37 Order name: Urine --Ancillary (enter results) 02/16 21:38 Order name: Urine Dipstick-Ancillary [facility] 02/16 20:56 Order name: Urine Test (obtain specimen); Complete Time: 21:07 [facility] Administered Medications: No medications were administered Disposition: 02/16/18 21:45 Discharged to Home. Impression: STD exposure. - Condition is Stable. - Discharge Instructions: Sexually Transmitted Disease, [id number]. - Prescriptions for Doxycycline Monohydrate 100 mg Oral Tablet - take 1 tablet by ORAL route every 12 hours for 10 days; 20 tablet. - Medication Reconciliation Form, Thank You Letter, Antibiotic Education, Prescription Opioid Use form. - Follow up: Private Physician; When: Upon discharge from the Emergency Department; Reason: Recheck today's complaints, Continuance of care. - Problem is new. - Symptoms have improved. Signatures: Dispatcher [employer] EDSarahi Carvajal RN RN aj Krenek, Amber, RN RN ak1 Orville Benton MD MD tw4 Corrections: (The following items were deleted from the chart) 02/16 21:57 21:45 02/16/2018 21:45 Discharged to Home. Impression: STD exposure. Condition is ak1 Stable. Forms are Medication Reconciliation Form, Thank You Letter, Antibiotic Education, Prescription Opioid Use. Follow up: Private Physician; When: Upon discharge from the Emergency Department; Reason: Recheck today's complaints, Continuance of care. Problem is new. Symptoms have improved. tw4
[2018-02-16 21:53] LABS: Urine Blood NEGATIVE (NEG); Urine Glucose NEGATIVE (NEG); Urine Protein 1+ (NEG)
== END 2018-02-16 21:57 | disposition home or self-care (01) ==
LOC: ER 19:29
DX: Z20.2 Contact with and (suspected) exposure to infections with a predominantly sexual mode of transmission (principal)
CPT/HCPCS: 81003; 81015; 81025; 87086; 87088; 99283

== ENCOUNTER 2018-06-30 16:39 | Emergency (ER) | payer SELFPAY ==
--- OUTSIDE RECORDS SUMMARY | 2018-06-30 16:42 | XMS REPORT | Clinical Summary ---
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 For more information, please contact:[address] [address]
--- OUTSIDE RECORDS SUMMARY | 2018-06-30 16:42 | XMS REPORT ---
:1990 [facility] Address [address] [place] [address] Dr. Steen [address] [place] [id number] Care Team Providers Name Role Phone Unavailable Unavailable Unavailable Problems This patient has no known problems. Allergies, Adverse Reactions, Alerts This patient has no known allergies or adverse reactions. Medications This patient has no known medications. Encounters Start End Encounter Admission Attending Care Care Encounter Date/Time Date/Time Type Type Clinicians Facility Department ID 2016-09-29 2016-10-04 Outpatient [facility] [id number] 00:00:00 00:00:00
--- NOTE | 2018-06-30 17:29 | EDPHYS ---
Physician Documentation [facility] Name: Marielle Jones Age: 27 yrs Sex: Female : 1990 Arrival Date: 06/30/2018 Time: 16:43 Bed 12 Private MD: None, None ED Physician Tushar Baldwin HPI: 06/30 17:26 This 27 yrs old Black Female presents to ER via Ambulatory with complaints of Vaginal kb Itching. 17:26 The patient presents with perineal itching. kb 17:26 Onset: The symptoms/episode began/occurred 3 week(s) ago. Modifying factors: The kb symptoms are alleviated by nothing, the symptoms are aggravated by nothing. Associated signs and symptoms: Pertinent positives: vaginal itching. Severity of symptoms: At their worst the symptoms were moderate, in the emergency department the symptoms are unchanged. The patient has not experienced similar symptoms in the past. The patient has not recently seen a physician. Pt reports vaginal itching and irritation for about 3 weeks. Reports she used monistat and it didn't help so she wanted to make sure she didn't have a UTI. 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 - Social history:: Smoking status: unknown. - Ebola Screening: : Patient negative for fever greater than or equal to 101.5 degrees Fahrenheit, and additional compatible Ebola Virus Disease symptoms Patient denies exposure to infectious person Patient denies travel to an Ebola-affected area in the 21 days before illness onset No symptoms or risks identified at this time. ROS: 17:26 Constitutional: Negative for fever, chills, and weight loss, Cardiovascular: Negative kb for chest pain, palpitations, and edema, Respiratory: Negative for shortness of breath, cough, wheezing, and pleuritic chest pain, Abdomen/GI: Negative for abdominal pain, nausea, vomiting, diarrhea, and constipation, MS/Extremity: Negative for injury and deformity, Skin: Negative for injury, rash, and discoloration, Neuro: Negative for headache, weakness, numbness, tingling, and seizure. 17:26 : Positive for vaginal itching. Exam: 17:26 Constitutional: This is a well developed, well nourished patient who is awake, alert, kb and in no acute distress. Head/Face: Normocephalic, atraumatic. Chest/axilla: Normal chest wall appearance and motion. Nontender with no deformity. No lesions are appreciated. Cardiovascular: Regular rate and rhythm with a normal S1 and S2. No gallops, murmurs, or rubs. Normal PMI, no JVD. No pulse deficits. Respiratory: Lungs have equal breath sounds bilaterally, clear to auscultation and percussion. No rales, rhonchi or wheezes noted. No increased work of breathing, no retractions or nasal flaring. Abdomen/GI: Soft, non-tender, with normal bowel sounds. No distension or tympany. No guarding or rebound. No evidence of tenderness throughout. Skin: Warm, dry with normal turgor. Normal color with no rashes, no lesions, and no evidence of cellulitis. MS/ Extremity: Pulses equal, no cyanosis. Neurovascular intact. Full, normal range of motion. Neuro: Awake and alert, GCS 15, oriented to person, place, time, and situation. Cranial nerves II-XII grossly intact. Motor strength 5/5 in all extremities. Sensory grossly intact. Cerebellar exam normal. Normal gait. Vital Signs: 16:46 BP 100 / 72; Pulse 82; Resp 18; Temp 99.2(TE); Pulse Ox 100% on R/A; Weight 54.43 kg; hj Height 5 ft. 3 in. (160.02 cm); Pain 0/10; 16:46 Body Mass Index 21.26 (54.43 kg, 160.02 cm) MDM: 16:50 Patient medically screened. kb 17:25 Data reviewed: vital signs, nurses notes. Data interpreted: Pulse oximetry: on room air kb is 100 %. Interpretation: normal. Counseling: I had a detailed discussion with the patient and/or guardian regarding: the historical points, exam findings, and any diagnostic results supporting the discharge/admit diagnosis, lab results, the need for outpatient follow up, an OB/Gyne specialist, to return to the emergency department if symptoms worsen or persist or if there are any questions or concerns that arise at home. 06/30 17:19 Order name: Urine Dipstick--Ancillary (enter results) eb 06/30 17:19 Order name: Urine --Ancillary (enter results); Complete Time: 17:35 06/30 17:20 Order name: Urine Dipstick-Ancillary; Complete Time: 17:35 EDMS Administered Medications: No medications were administered Disposition: 07/01 09:22 Co-signature as Attending Physician, Tushar Baldwin MD. Disposition: 06/30/18 17:28 Discharged to Home. Impression: Candidiasis of vulva and vagina. - Condition is Stable. - Discharge Instructions: Vaginal Yeast Infection, Adult. - Medication Reconciliation Form, Thank You Letter, Antibiotic Education, Prescription Opioid Use form. - Follow up: Emergency Department; When: As needed; Reason: Worsening of condition. Follow up: Private Physician; When: 2 - 3 days; Reason: Recheck today's complaints, Continuance of care, Re-evaluation by your physician. Signatures: Dispatcher [employer] EDAR Ora Abbott, PUJA-C RISK ANALYST-Yoli Eller RN RN Td Yang RN RN hj Starr, Gregory, MD MD Corrections: (The following items were deleted from the chart) 06/30 17:48 17:28 06/30/2018 17:28 Discharged to Home. Impression: Candidiasis of vulva and vagina. iw Condition is Stable. Forms are Medication Reconciliation Form, Thank You Letter, Antibiotic Education, Prescription Opioid Use. Follow up: Emergency Department; When: As needed; Reason: Worsening of condition. Follow up: Private Physician; When: 2 - 3 days; Reason: Recheck today's complaints, Continuance of care, Re-evaluation by your physician. kb
--- NOTE | 2018-06-30 17:29 | ER ---
Nurse's Notes [facility] Name: Marielle Jones Age: 27 yrs Sex: Female : 1990 Arrival Date: 06/30/2018 Time: 16:43 Bed 12 Private MD: None, None Diagnosis: Candidiasis of vulva and vagina Presentation: 06/30 16:44 Presenting complaint: Patient states: im having vaginal itching for couple weeks now; i hj used Monistat cream but not helping;. Transition of care: patient was not received from another setting of care. Onset of symptoms was June 30, 2018. Risk Assessment: Do you want to hurt yourself or someone else? Patient reports no desire to harm self or others. Initial Sepsis Screen: Does the patient meet any 2 criteria? No. Patient's initial sepsis screen is negative. Does the patient have a suspected source of infection? No. Patient's initial sepsis screen is negative. Care prior to arrival: None. 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 - Social history:: Smoking status: unknown. - Ebola Screening: : Patient negative for fever greater than or equal to 101.5 degrees Fahrenheit, and additional compatible Ebola Virus Disease symptoms Patient denies exposure to infectious person Patient denies travel to an Ebola-affected area in the 21 days before illness onset No symptoms or risks identified at this time. Screenin:15 Abuse screen: Denies threats or abuse. Denies injuries from another. Nutritional iw screening: No deficits noted. Tuberculosis screening: No symptoms or risk factors identified. Fall Risk None identified. Assessment: 17:15 General: Appears in no apparent distress. Behavior is calm, cooperative. Pain: Denies iw pain. Neuro: Level of Consciousness is awake, alert, obeys commands, Oriented to person, place, time, situation, Moves all extremities. Full function. Cardiovascular: Patient's skin is warm and dry. Respiratory: Respiratory effort is even, unlabored, Respiratory pattern is regular. : Reports vaginal itching. Derm: Skin is intact, is healthy with good turgor. Musculoskeletal: Range of motion: intact in all extremities. Vital Signs: 16:46 BP 100 / 72; Pulse 82; Resp 18; Temp 99.2(TE); Pulse Ox 100% on R/A; Weight 54.43 kg; hj Height 5 ft. 3 in. (160.02 cm); Pain 0/10; 16:46 Body Mass Index 21.26 (54.43 kg, 160.02 cm) ED Course: 16:43 Patient arrived in ED. mr 16:43 None, None is Private Physician. mr 16:45 Ora Abbott FNP-C [facility]. kb 16:45 Tushar Baldwin MD is Attending Physician. kb 16:45 Triage completed. hj 16:47 Arm band placed on right wrist. hj 17:14 Yoli Whitmore, RN is Primary Nurse. iw 17:15 Patient has correct armband on for positive identification. iw 17:15 No provider procedures requiring assistance completed. iw 17:17 Urine collected: clean catch specimen, clear, capo colored. jb1 17:46 Patient did not have IV access during this emergency room visit. iw Administered Medications: No medications were administered Outcome: 17:28 Discharge ordered by MD. kb 17:47 Discharged to home ambulatory. iw 17:47 Condition: good 17:47 Discharge instructions given to patient, Instructed on discharge instructions, follow up and referral plans. Demonstrated understanding of instructions, follow-up care. 17:48 Patient left the ED. iw Signatures: Marcial Brooks jb1 Ora Abbott FNP-C FNP-Nidia EastmanaJennifer mr Yoli Whitmore, RN RN Td Yang RN RN
[2018-06-30 17:34] LABS: Urine Blood NEGATIVE (NEG); Urine Glucose NEGATIVE (NEG); Urine Protein TRACE (NEG)
[2018-06-30] MEDS ORDERED: FLUCONAZOLE 100 MG TAB ONE (17:51)
== END 2018-06-30 17:48 | disposition home or self-care (01) ==
LOC: ER 16:39
DX: B37.3 Candidiasis of vulva and vagina (principal)
CPT/HCPCS: 81003; 81025; 99283

== ENCOUNTER 2018-08-07 13:49 | Emergency (ER) | payer SELFPAY ==
--- NOTE | 2018-08-07 14:49 | EDPHYS ---
Physician Documentation [facility] Name: Marielle Jones Age: 27 yrs Sex: Female : 1990 Arrival Date: 08/07/2018 Time: 13:51 Bed 12 Private MD: ED Physician Cristhian Sims HPI: 08/07 14:45 This 27 yrs old Black Female presents to ER via Ambulatory with complaints of Redness jr8 of Eye. 14:45 The patient is experiencing redness, tearing. Onset: The symptoms/episode jr8 began/occurred gradually, 3 week(s) ago. Duration: the symptoms are continuous. Aggravated by nothing. Alleviated by nothing. Associated signs and symptoms: Pertinent positives: None. Patient does not utilize any form of vision correction. Severity of symptoms: At their worst the symptoms were mild in the emergency department the symptoms are unchanged. The patient has not experienced similar symptoms in the past. The patient has been recently seen by a physician:. Patient stated that two weeks ago she saw some kind of physician that told her that she had viral conjunctivitis. Stated that they told her to take OTC drops. Has done so with mild improvement but still having pain, redness, and tearing . 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 - Ebola Screening: : No symptoms or risks identified at this time. - Social history:: Smoking status: Patient/guardian denies using tobacco. ROS: 14:45 ENT: Negative for injury, pain, and discharge, Neck: Negative for injury, pain, and jr8 swelling, Cardiovascular: Negative for chest pain, palpitations, and edema, Respiratory: Negative for shortness of breath, cough, wheezing, and pleuritic chest pain, Abdomen/GI: Negative for abdominal pain, nausea, vomiting, diarrhea, and constipation, Back: Negative for injury and pain, MS/Extremity: Negative for injury and deformity, Skin: Negative for injury, rash, and discoloration, Neuro: Negative for headache, weakness, numbness, tingling, and seizure. 14:45 Eyes: Positive for pain, redness, tearing. Exam: 14:45 Visual Acuity: Visual acuity is within normal limits. jr8 14:45 ENT: Nares patent. No nasal discharge, no septal abnormalities noted. Tympanic membranes are normal and external auditory canals are clear. Oropharynx with no redness, swelling, or masses, exudates, or evidence of obstruction, uvula midline. Mucous membranes moist. Neck: Trachea midline, no thyromegaly or masses palpated, and no cervical lymphadenopathy. Supple, full range of motion without nuchal rigidity, or vertebral point tenderness. No Meningismus. Cardiovascular: Regular rate and rhythm with a normal S1 and S2. No gallops, murmurs, or rubs. Normal PMI, no JVD. No pulse deficits. Respiratory: Lungs have equal breath sounds bilaterally, clear to auscultation and percussion. No rales, rhonchi or wheezes noted. No increased work of breathing, no retractions or nasal flaring. Abdomen/GI: Soft, non-tender, with normal bowel sounds. No distension or tympany. No guarding or rebound. No evidence of tenderness throughout. Back: No spinal tenderness. No costovertebral tenderness. Full range of motion. Skin: Warm, dry with normal turgor. Normal color with no rashes, no lesions, and no evidence of cellulitis. MS/ Extremity: Pulses equal, no cyanosis. Neurovascular intact. Full, normal range of motion. Neuro: Awake and alert, GCS 15, oriented to person, place, time, and situation. Cranial nerves II-XII grossly intact. Motor strength 5/5 in all extremities. Sensory grossly intact. Cerebellar exam normal. Normal gait. 14:45 Eyes: Periorbital structures: appear normal, Pupils: equal, round, and reactive to light and accomodation, Extraocular movements: intact throughout, Conjunctiva: injected, in the left eye, Corneas: are normal, Sclera: no appreciated abnormality, Anterior chamber: normal, Lids and lashes: appear normal, Examination of the other eye reveals no obvious gross abnormality. Vital Signs: 14:07 BP 97 / 66; Pulse 92; Resp 16 S; Temp 98.0(TE); Pulse Ox 96% on R/A; Weight 54.88 kg aa5 (R); Height 5 ft. 3 in. (160.02 cm) (R); Pain 7/10; 14:07 Body Mass Index 21.43 (54.88 kg, 160.02 cm) aa5 MDM: 14:30 Patient medically screened. jr8 14:45 Data reviewed: vital signs, nurses notes, and as a result, I will discharge patient. jr8 Data interpreted: Pulse oximetry: on room air is 96 %. Interpretation: normal. Counseling: I had a detailed discussion with the patient and/or guardian regarding: the historical points, exam findings, and any diagnostic results supporting the discharge/admit diagnosis, the need for outpatient follow up, an opthalmologist, to return to the emergency department if symptoms worsen or persist or if there are any questions or concerns that arise at home. Administered Medications: No medications were administered Disposition: 08/08 10:13 Co-signature as Attending Physician, Cristhian Sims MD I agree with the assessment and ngoc plan of care. Disposition: 08/07/18 14:48 Discharged to Home. Impression: Conjunctivitis. - Condition is Stable. - Discharge Instructions: Bacterial Conjunctivitis, Viral Conjunctivitis. - Prescriptions for Gentamicin 0.3 % Ophthalmic Drops - instill 2 drop by OPHTHALMIC route every 4 hours; 1 bottle. - Medication Reconciliation Form, Thank You Letter, Antibiotic Education, Prescription Opioid Use form. - Follow up: Private Physician; When: 5 - 6 days; Reason: Recheck today's complaints, Continuance of care, Re-evaluation by your physician. - Problem is new. - Symptoms have improved. Signatures: Cristhian Sims MD MD cha Munoz, Edgar, SOAKING PIT OPERATOR SOAKING PIT OPERATOR em Maria Guadalupe Lovelace RN RN aa5 Robbin Mott PA PA jr8 Corrections: (The following items were deleted from the chart) 08/07 14:54 14:48 08/07/2018 14:48 Discharged to Home. Impression: Conjunctivitis. Condition is em Stable. Forms are Medication Reconciliation Form, Thank You Letter, Antibiotic Education, Prescription Opioid Use. Follow up: Private Physician; When: 5 - 6 days; Reason: Recheck today's complaints, Continuance of care, Re-evaluation by your physician. Problem is new. Symptoms have improved. jr8
--- NOTE | 2018-08-07 14:49 | ER ---
Nurse's Notes [facility] Name: Marielle Jones Age: 27 yrs Sex: Female : 1990 Arrival Date: 08/07/2018 Time: 13:51 Bed 12 Private MD: Diagnosis: Conjunctivitis Presentation: 08/07 14:05 Presenting complaint: Patient states: dx with viral conjunctivitis to left eye 3 week aa5 ago. Pt states "My eye is less red now but it's been 3 weeks". Transition of care: patient was not received from another setting of care. Onset of symptoms was July 2018. Risk Assessment: Do you want to hurt yourself or someone else? Patient reports no desire to harm self or others. Initial Sepsis Screen: Does the patient meet any 2 criteria? No. Patient's initial sepsis screen is negative. Does the patient have a suspected source of infection? No. Patient's initial sepsis screen is negative. Care prior to arrival: None. 14:05 Method Of Arrival: Ambulatory aa5 14:05 Acuity: CODY 5 aa5 Triage Assessment: 14:05 General: Appears comfortable, Behavior is calm, cooperative. 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 - Ebola Screening: : No symptoms or risks identified at this time. - Social history:: Smoking status: Patient/guardian denies using tobacco. Screenin:10 Abuse screen: Denies threats or abuse. Nutritional screening: No deficits noted. aa5 Tuberculosis screening: No symptoms or risk factors identified. Fall Risk None identified. Assessment: 14:10 General: Appears comfortable, Behavior is calm, cooperative. Pain: Complains of pain in aa5 left eye Quality of pain is described as burning. Neuro: Level of Consciousness is awake, alert, obeys commands, Oriented to person, place, time, situation. Cardiovascular: Patient's skin is warm and dry. Respiratory: Airway is patent Respiratory effort is even, unlabored, Respiratory pattern is regular, symmetrical. GI: No signs and/or symptoms were reported involving the gastrointestinal system. : No signs and/or symptoms were reported regarding the genitourinary system. EENT: mild redness noted to sclera of left eye . Derm: Skin is dry, Skin is normal, Skin temperature is warm. Musculoskeletal: Range of motion: intact in all extremities. 14:50 Neuro: Level of Consciousness is awake, alert, obeys commands, Oriented to person, aa5 place, time, situation. Respiratory: Airway is patent Respiratory effort is even, unlabored, Respiratory pattern is regular, symmetrical. Derm: Skin is dry, Skin is normal, Skin temperature is warm. Vital Signs: 14:07 BP 97 / 66; Pulse 92; Resp 16 S; Temp 98.0(TE); Pulse Ox 96% on R/A; Weight 54.88 kg aa5 (R); Height 5 ft. 3 in. (160.02 cm) (R); Pain 7/10; 14:07 Body Mass Index 21.43 (54.88 kg, 160.02 cm) aa5 ED Course: 13:51 Patient arrived in ED. rg4 14:05 Arm band placed on. aa5 14:05 Patient has correct armband on for positive identification. aa5 14:07 Triage completed. aa5 14:08 Maria Guadalupe Lovelace RN is Primary Nurse. aa5 14:30 Robbin Mott PA is PHCP. jr8 14:30 Cristhian Sims MD is Attending Physician. jr8 14:50 No provider procedures requiring assistance completed. Patient did not have IV access aa5 during this emergency room visit. Administered Medications: No medications were administered Outcome: 14:48 Discharge ordered by . jr8 14:50 Discharged to home ambulatory. aa5 14:50 Condition: good 14:50 Discharge instructions given to patient, Instructed on discharge instructions, follow up and referral plans. medication usage, Demonstrated understanding of instructions, follow-up care, medications, Prescriptions given X 1. 14:54 Patient left the ED. em Signatures: Adriel Casas, WARRANTY MANAGER WARRANTY MANAGER em Maria Guadalupe Lovelace RN RN aa5 Robbin Mott PA PA Frances Diaz rg4 Corrections: (The following items were deleted from the chart) 14:09 14:07 Pulse 92bpm; Resp 16bpm; Spontaneous; Pulse Ox 96% RA; Temp 98.0F Temporal; 54.88 aa5 kg Reported; Height 5 ft. 3 in. Reported; BMI: 21.4; Pain 7/10; aa5
--- OUTSIDE RECORDS SUMMARY | 2018-08-07 15:53 | XMS REPORT ---
:1990 [facility] Address [address] [place] [address] Dr. Steen [address] [place] [id number] Care Team Providers Name Role Phone Unavailable Unavailable Unavailable Problems This patient has no known problems. Allergies, Adverse Reactions, Alerts This patient has no known allergies or adverse reactions. Medications This patient has no known medications. Encounters Start End Encounter Admission Attending Care Care Encounter Date/Time Date/Time Type Type Clinicians Facility Department ID 2016-09-29 2016-10-04 Outpatient [facility] [id number] 00:00:00 00:00:00
--- OUTSIDE RECORDS SUMMARY | 2018-08-07 15:53 | XMS REPORT | Clinical Summary ---
:1990 Author Organization [facility] Address [address] [place] [address] Care Team Providers Name Role Phone Asked, No Pcp Primary Care Provider Unavailable Allergies No Known Allergies Medications Not on file Active Problems Not on file Encounters Date Type Specialty Care Team Description 02/16/2018 Emergency Emergency Medicine after 08/06/2017 Social History Tobacco Use Types Packs/Day Years [...] Taken Blood Pressure 103/80 02/16/2018 3:08 PM TRANSFER COORDINATOR Pulse 78 02/16/2018 3:08 PM TRANSFER COORDINATOR Temperature 36.7 C (98.1 F) 02/16/2018 3:08 PM TRANSFER COORDINATOR Respiratory Rate 16 02/16/2018 3:08 PM TRANSFER COORDINATOR Oxygen Saturation 99% 02/16/2018 3:08 PM TRANSFER COORDINATOR Inhaled Oxygen Concentration - - Weight - - Height 162.6 cm (5' 4") 02/16/2018 2:10 PM TRANSFER COORDINATOR Body Mass Index - - Plan of Treatment Not on file Results Not on fileafter 08/06/2017 Advance Directives Patient has advance care planning documents on file. For more information, please contact:[address] [address]
== END 2018-08-07 14:54 | disposition home or self-care (01) ==
LOC: ER 13:49
DX: H10.9 Unspecified conjunctivitis (principal)
CPT/HCPCS: 99282

== ENCOUNTER 2018-09-09 18:23 | Emergency (ER) | payer SELFPAY ==
--- OUTSIDE RECORDS SUMMARY | 2018-09-09 18:26 | XMS REPORT ---
:1990 [facility] Address [address] [place] [address] Dr. Steen [address] [place] [id number] Care Team Providers Name Role Phone Unavailable Unavailable Unavailable Problems This patient has no known problems. Allergies, Adverse Reactions, Alerts This patient has no known allergies or adverse reactions. Medications This patient has no known medications. Encounters Start End Encounter Admission Attending Care Care Encounter Date/Time Date/Time Type Type Clinicians Facility Department ID 2016-09-29 2016-10-04 Outpatient [facility] [id number] 00:00:00 00:00:00
--- OUTSIDE RECORDS SUMMARY | 2018-09-09 18:26 | XMS REPORT | Clinical Summary ---
:1990 [facility] Address [address] [place] [address] Care Team Providers Name Role Phone Asked, No Pcp Primary Care Provider Unavailable Allergies No Known Allergies Medications Not on file Active Problems Not on file Encounters Date Type Specialty Care Team Description 02/16/2018 Emergency Emergency Medicine after 09/08/2017 Social History Tobacco Use Types Packs/Day Years [...] Taken Blood Pressure 103/80 02/16/2018 3:08 PM LOCKER ROOM CLERK Pulse 78 02/16/2018 3:08 PM LOCKER ROOM CLERK Temperature 36.7 C (98.1 F) 02/16/2018 3:08 PM LOCKER ROOM CLERK Respiratory Rate 16 02/16/2018 3:08 PM LOCKER ROOM CLERK Oxygen Saturation 99% 02/16/2018 3:08 PM LOCKER ROOM CLERK Inhaled Oxygen Concentration - - Weight - - Height 162.6 cm (5' 4") 02/16/2018 2:10 PM LOCKER ROOM CLERK Body Mass Index - - Plan of Treatment Not on file Results Not on fileafter 09/08/2017 Advance Directives Patient has advance care planning documents on file. For more information, please contact:[address] [address]
--- NOTE | 2018-09-09 19:03 | EDPHYS ---
Physician Documentation [facility] Name: Marielle Jones Age: 27 yrs Sex: Female : 1990 Arrival Date: 09/09/2018 Time: 18:26 Bed 16 Private MD: None, None ED Physician Cristhian Sims HPI: 09/09 18:59 This 27 yrs old Black Female presents to ER via Ambulatory with complaints of Burning pm1 with urination. 18:59 The patient presents with urinary symptoms, burning with urination. Onset: The pm1 symptoms/episode began/occurred yesterday. Modifying factors: The symptoms are alleviated by nothing, the symptoms are aggravated by urinating. Associated signs and symptoms: Pertinent positives: suprapubic pain when urinating, Pertinent negatives: constipation, fever, nausea, vomiting. Severity of symptoms: in the emergency department the symptoms are actually worse. The patient is sexually active. The patient has experienced similar episodes in the past, and the symptoms today are exactly the same, to previous UTI. The patient has not recently seen a physician. 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 - Social history:: Smoking status: Patient/guardian denies using tobacco. - Ebola Screening: : Patient denies travel to an Ebola-affected area in the 21 days before illness onset. ROS: 18:59 Positive for burning with urination, Negative for flank pain. pm1 18:59 Constitutional: Negative for fever, chills, and weight loss, Cardiovascular: Negative for chest pain, palpitations, and edema, Respiratory: Negative for shortness of breath, cough, wheezing, and pleuritic chest pain. 18:59 Back: Negative for injury and pain, MS/Extremity: Negative for injury and deformity, Skin: Negative for injury, rash, and discoloration, Neuro: Negative for headache, weakness, numbness, tingling, and seizure. 18:59 Abdomen/GI: Positive for abdominal pain, of the suprapubic area, Negative for nausea, vomiting, and diarrhea. Exam: 18:59 Constitutional: This is a well developed, well nourished patient who is awake, alert, pm1 and in no acute distress. Head/Face: Normocephalic, atraumatic. Chest/axilla: Normal chest wall appearance and motion. Nontender with no deformity. No lesions are appreciated. Cardiovascular: Regular rate and rhythm with a normal S1 and S2. No gallops, murmurs, or rubs. Normal PMI, no JVD. No pulse deficits. Respiratory: Lungs have equal breath sounds bilaterally, clear to auscultation and percussion. No rales, rhonchi or wheezes noted. No increased work of breathing, no retractions or nasal flaring. 18:59 Back: No spinal tenderness. No costovertebral tenderness. Full range of motion. Skin: Warm, dry with normal turgor. Normal color with no rashes, no lesions, and no evidence of cellulitis. MS/ Extremity: Pulses equal, no cyanosis. Neurovascular intact. Full, normal range of motion. 18:59 Abdomen/GI: Inspection: abdomen appears normal, Bowel sounds: normal, Palpation: abdomen is soft and non-tender, in all quadrants, mass, is not appreciated, rebound tenderness, is not appreciated. 18:59 Neuro: Orientation: is normal, Motor: is normal, moves all fours, Gait: is steady, at a normal pace, without difficulty. Vital Signs: 18:43 BP 111 / 73; Pulse 88; Resp 16; Temp 98.6; Pulse Ox 99% on R/A; Weight 54.43 kg (R); aj1 Height 5 ft. 3 in. (160.02 cm) (R); Pain 7/10; 18:43 Body Mass Index 21.26 (54.43 kg, 160.02 cm) aj1 MDM: 18:33 Patient medically screened. pm1 18:59 Data reviewed: vital signs. Data interpreted: Pulse oximetry: on room air is 99 %. pm1 Interpretation: normal. Counseling: I had a detailed discussion with the patient and/or guardian regarding: the historical points, exam findings, and any diagnostic results supporting the discharge/admit diagnosis, lab results, the need for outpatient follow up, to return to the emergency department if symptoms worsen or persist or if there are any questions or concerns that arise at home. 09/09 18:52 Order name: Urine Microscopic Only pm1 09/09 19:07 Order name: Urine Dipstick--Ancillary (enter results); Complete Time: 19:25 cm6 09/09 18:52 Order name: Urine Dipstick-Ancillary (obtain specimen); Complete Time: 19:02 pm1 09/09 18:52 Order name: Urine Test (obtain specimen); Complete Time: 19:02 pm1 09/09 19:07 Order name: Urine --Ancillary (enter results); Complete Time: 19:25 cm6 Administered Medications: No medications were administered Disposition: 09/10 09:51 Co-signature as Attending Physician, Cristhian Sims MD I agree with the assessment and ngoc plan of care. Disposition: 09/09/18 19:02 Discharged to Home. Impression: Urinary tract infection, site not specified. - Condition is Stable. - Discharge Instructions: Urinary Tract Infection, Adult. - Prescriptions for Bactrim DS 800- 160 mg Oral Tablet - take 1 tablet by ORAL route every 12 hours for 10 days; 20 tablet. - Medication Reconciliation Form, Thank You Letter, Antibiotic Education, Prescription Opioid Use form. - Follow up: Emergency Department; When: As needed; Reason: Worsening of condition. Follow up: Private Physician; When: 2 - 3 days; Reason: If symptoms return, Recheck today's complaints, Continuance of care. - Problem is new. - Symptoms have improved. Signatures: Dispatcher [employer] EDShavonne Dean RN RN aj1 Cristhian Sims MD MD cha Marinas, Patrick, QUALITY CONTROL DIRECTOR QUALITY CONTROL DIRECTOR pm1 Surya Champagne RN RN tr5 Corrections: (The following items were deleted from the chart) 09/09 19:23 19:02 09/09/2018 19:02 Discharged to Home. Impression: Urinary tract infection, site tr5 not specified. Condition is Stable. Forms are Medication Reconciliation Form, Thank You Letter, Antibiotic Education, Prescription Opioid Use. Follow up: Emergency Department; When: As needed; Reason: Worsening of condition. Follow up: Private Physician; When: 2 - 3 days; Reason: If symptoms return, Recheck today's complaints, Continuance of care. Problem is new. Symptoms have improved. pm1
--- NOTE | 2018-09-09 19:03 | ER ---
Nurse's Notes [facility] Name: Marielle Jones Age: 27 yrs Sex: Female : 1990 Arrival Date: 09/09/2018 Time: 18:26 Bed 16 Private MD: None, None Diagnosis: Urinary tract infection, site not specified Presentation: 09/09 18:42 Presenting complaint: Patient states: Lower abdominal pain and dysuria since yesterday. aj1 Denies fever. Transition of care: patient was not received from another setting of care. Onset of symptoms was September 08, 2018. Risk Assessment: Do you want to hurt yourself or someone else? Patient reports no desire to harm self or others. Initial Sepsis Screen: Does the patient meet any 2 criteria? No. Patient's initial sepsis screen is negative. Does the patient have a suspected source of infection? No. Patient's initial sepsis screen is negative. Care prior to arrival: None. 18:42 Method Of Arrival: Ambulatory aj1 18:42 Acuity: CODY 3 aj1 Triage Assessment: 18:43 General: Appears in no apparent distress. comfortable, Behavior is calm, cooperative, aj1 appropriate for age. Pain: Complains of pain in suprapubic area. 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 - Social history:: Smoking status: Patient/guardian denies using tobacco. - Ebola Screening: : Patient denies travel to an Ebola-affected area in the 21 days before illness onset. Screenin:45 Abuse screen: Denies threats or abuse. Denies injuries from another. Nutritional aj1 screening: No deficits noted. Tuberculosis screening: No symptoms or risk factors identified. 19:22 Fall Risk No fall in past 12 months (0 pts). No secondary diagnosis (0 pts). No IV (0 tr5 pts). Ambulatory Aid- None/Bed Rest/Nurse Assist (0 pts). Gait- Normal/Bed Rest/Wheelchair (0 pts) Mental Status- Oriented to own ability (0 pts). Total Maciel Fall Scale indicates No Risk (0-24 pts). Assessment: 18:45 General: Appears in no apparent distress. comfortable, Behavior is calm, cooperative, aj1 appropriate for age. Pain: Complains of pain in suprapubic area Pain does not radiate. Pain currently is 7 out of 10 on a pain scale. Quality of pain is described as burning. Neuro: Level of Consciousness is awake, alert, obeys commands, Oriented to person, place, time, situation. Cardiovascular: Patient's skin is warm and dry. Respiratory: Airway is patent Respiratory effort is even, unlabored, Respiratory pattern is regular, symmetrical. GI: Abdomen is flat, non-distended, Abd is soft and non tender X 4 quads. Reports lower abdominal pain, Patient currently denies diarrhea, nausea, vomiting. : Reports burning with urination. EENT: No signs and/or symptoms were reported regarding the EENT system. Derm: No signs and/or symptoms reported regarding the dermatologic system. Skin is pink, warm \T\ dry. normal. Musculoskeletal: No signs and/or symptoms reported regarding the musculoskeletal system. Circulation, motion, and sensation intact. Vital Signs: 18:43 BP 111 / 73; Pulse 88; Resp 16; Temp 98.6; Pulse Ox 99% on R/A; Weight 54.43 kg (R); aj1 Height 5 ft. 3 in. (160.02 cm) (R); Pain 7/10; 18:43 Body Mass Index 21.26 (54.43 kg, 160.02 cm) aj1 ED Course: 18:26 Patient arrived in ED. ag5 18:28 None, None is Private Physician. ag5 18:31 Juan Carias NP is PHCP. pm1 18:31 Cristhian Sims MD is Attending Physician. pm1 18:42 Shavonne Curran, DEISY is Primary Nurse. aj1 18:43 Triage completed. aj1 18:43 Arm band placed on. aj1 18:45 Patient has correct armband on for positive identification. Bed in low position. Call aj1 light in reach. Side rails up X 1. 18:45 No provider procedures requiring assistance completed. aj1 19:00 Urine collected: clean catch specimen, cloudy. dh3 19:22 Patient did not have IV access during this emergency room visit. tr5 Administered Medications: No medications were administered Outcome: 19:02 Discharge ordered by . pm1 19:22 Discharged to home ambulatory. tr5 19:22 Condition: stable 19:22 Discharge instructions given to patient, Instructed on discharge instructions, follow up and referral plans. the need for transfer, Prescriptions given X 1. 19:23 Patient left the ED. tr5 Signatures: Shavonne Curran RN RN aj1 Juan Carias, DILSHAD IGNITER ASSEMBLER pm1 La Hoffman 3 Lisbeth Roland 5 Surya Champagne RN RN tr5
[2018-09-09 19:14] LABS: Urine Blood 3+ (NEG); Urine Glucose NEGATIVE (NEG); Urine Protein 2+ (NEG); Urine Specific Gravity >1.030 (1.005-1.030); Urine pH 5.5 (5.0-7.0)
[2018-09-09 19:25] LABS: Urine Bacteria 20-50 /HPF (<20); Urine Culture Reflex Order REFLEXED; Urine Mucus 1+ /HPF (NONE SEEN); Urine RBC >50 /HPF (NONE SEEN)
== END 2018-09-09 19:23 | disposition home or self-care (01) ==
LOC: ER 18:23
DX: N39.0 Urinary tract infection, site not specified (principal); J45.909 Unspecified asthma, uncomplicated
CPT/HCPCS: 81003; 81015; 81025; 87086; 87088; 99283

== ENCOUNTER 2018-10-12 21:15 | Emergency (ER) | payer SELFPAY ==
--- OUTSIDE RECORDS SUMMARY | 2018-10-12 21:18 | XMS REPORT ---
:1990 [facility] Address [address] [place] [address] Dr. Steen [address] [place] [id number] Care Team Providers Name Role Phone Unavailable Unavailable Unavailable Problems This patient has no known problems. Allergies, Adverse Reactions, Alerts This patient has no known allergies or adverse reactions. Medications This patient has no known medications. Encounters Start End Encounter Admission Attending Care Care Encounter Date/Time Date/Time Type Type Clinicians Facility Department ID 2016-09-29 2016-10-04 Outpatient [facility] [id number] 00:00:00 00:00:00
--- OUTSIDE RECORDS SUMMARY | 2018-10-12 21:18 | XMS REPORT | Clinical Summary ---
:1990 Author Organization [facility] Address [address] [place] [address] Care Team Providers Name Role Phone Asked, No Pcp Primary Care Provider Unavailable Allergies No Known Allergies Medications Medication Sig Dispensed Refills Start Date End Date Status sulfamethoxazole-trim Take 1 tablet by 14 tablet 0 09/18/2018 09/25/2018 ethoprim (BACTRIM DS) mouth 2 (two) 800-160 mg per tablet times a day for 7 days. smx-tmp DS (BACTRIM) 800-160 mg tabs (1tab q12 D10) Active Problems Not on file Encounters Date Type Specialty Care Team Description 09/18/2018 Emergency Emergency Medicine Larissa Glover De La Abscess of face (Primary MD Nelly Dx) 09/18/2018 Travel 02/16/2018 Emergency Emergency Medicine after 10/11/2017 Social History Tobacco Use Types Packs/Day Years Used Date Never Smoker Smokeless Tobacco: Never Used Alcohol Use Drinks/Week oz/Week Comments Yes Sex Assigned at Date Recorded Not on file Job Start Date Occupation Industry Not on file Not on file Not on file Travel History Travel Start Travel End No recent travel history available. 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
[2018-10-12] MEDS ORDERED: IBUPROFEN 200 MG TAB PO ONE (23:08)
[2018-10-12] MEDS ORDERED: IBUPROFEN 400 MG TAB ONE (23:08)
[2018-10-12] MEDS ORDERED: LIDOCAINE 1% MPF 5 ML VIAL ONE ×2 (23:16→23:32)
--- NOTE | 2018-10-12 23:50 | EDPHYS ---
Physician Documentation [facility] Name: Marielle Jones Age: 27 yrs Sex: Female : 1990 Arrival Date: 10/12/2018 Time: 21:18 Bed 2 Private MD: ED Physician Crow Monroe HPI: 10/12 23:40 This 27 yrs old Black Female presents to ER via Ambulatory with complaints of Cyst. wa 23:40 The patient presents with an abscess of the right cheek and left cheek. Description: wa The affected area is moderate sized, fluctuant. Onset: The symptoms/episode began/occurred 1 month(s) ago. Possible cause(s): h/o acne. Associated signs and symptoms: Pertinent positives: pain. Modifying factors: the symptoms are alleviated by nothing, the symptoms are aggravated by nothing. Severity of symptoms: At their worst the symptoms were moderate, in the emergency department the symptoms are actually worse. The patient has experienced similar episodes in the past, a few times. The patient has been recently seen by a physician: the patient's primary care provider. c/o facial abscess. seen by PCP and took bactrim but no improvement. 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 - Social history:: Smoking status: Patient/guardian denies using tobacco. - Ebola Screening: : No symptoms or risks identified at this time. - Family history:: not pertinent. - Hospitalizations: : No recent hospitalization is reported. ROS: 23:43 Constitutional: Negative for fever, chills, and weight loss, Eyes: Negative for injury, wa pain, redness, and discharge, ENT: Negative for injury, pain, and discharge, Neck: Negative for injury, pain, and swelling, Cardiovascular: Negative for chest pain, palpitations, and edema, Respiratory: Negative for shortness of breath, cough, wheezing, and pleuritic chest pain, Abdomen/GI: Negative for abdominal pain, nausea, vomiting, diarrhea, and constipation, Back: Negative for injury and pain, : Negative for injury, bleeding, discharge, and swelling, MS/Extremity: Negative for injury and deformity, Neuro: Negative for headache, weakness, numbness, tingling, and seizure, Psych: Negative for depression, anxiety, suicide ideation, homicidal ideation, and hallucinations. 23:43 Skin: Positive for abscess, swelling, of the left cheek and right cheek. 23:43 All other systems are negative. Exam: 23:43 Constitutional: This is a well developed, well nourished patient who is awake, alert, wa and in no acute distress. Eyes: Pupils equal round and reactive to light, extra-ocular motions intact. Lids and lashes normal. Conjunctiva and sclera are non-icteric and not injected. Cornea within normal limits. Periorbital areas with no swelling, redness, or edema. ENT: Nares patent. No nasal discharge, no septal abnormalities noted. Tympanic membranes are normal and external auditory canals are clear. Oropharynx with no redness, swelling, or masses, exudates, or evidence of obstruction, uvula midline. Mucous membranes moist. Neck: Trachea midline, no thyromegaly or masses palpated, and no cervical lymphadenopathy. Supple, full range of motion without nuchal rigidity, or vertebral point tenderness. No Meningismus. Chest/axilla: Normal chest wall appearance and motion. Nontender with no deformity. No lesions are appreciated. Cardiovascular: Regular rate and rhythm with a normal S1 and S2. No gallops, murmurs, or rubs. Normal PMI, no JVD. No pulse deficits. Respiratory: Lungs have equal breath sounds bilaterally, clear to auscultation and percussion. No rales, rhonchi or wheezes noted. No increased work of breathing, no retractions or nasal flaring. Abdomen/GI: Soft, non-tender, with normal bowel sounds. No distension or tympany. No guarding or rebound. No evidence of tenderness throughout. Back: No spinal tenderness. No costovertebral tenderness. Full range of motion. MS/ Extremity: Pulses equal, no cyanosis. Neurovascular intact. Full, normal range of motion. Neuro: Awake and alert, GCS 15, oriented to person, place, time, and situation. Cranial nerves II-XII grossly intact. Motor strength 5/5 in all extremities. Sensory grossly intact. Cerebellar exam normal. Normal gait. Psych: Awake, alert, with orientation to person, place and time. Behavior, mood, and affect are within normal limits. 23:43 Head/face: Noted is swelling, tenderness, of the left cheek and right cheek. 23:43 Skin: abscess, that is moderate sized, of the left cheek and right cheek. Vital Signs: 21:30 BP 114 / 72; Pulse 99; Resp 18; Temp 98.5; Pulse Ox 100% on R/A; Weight 54.43 kg (R); ak1 Height 5 ft. 3 in. (160.02 cm) (R); Pain 10/10; 22:45 BP 112 / 77; Pulse 95; Resp 16 S; Pulse Ox 100% on R/A; cc3 23:50 BP 110 / 72; Pulse 93; Resp 17 S; Pulse Ox 100% on R/A; cc3 21:30 Body Mass Index 21.26 (54.43 kg, 160.02 cm) ak1 Procedures: 23:47 I \T\ D: Incision and drainage was performed for an abscess of the bilateral Prepped with fl Betadine, Anesthetized with 2 ml's 1% Lidocaine. Incised with 18 guage. the patient tolerated the procedure well, drained by needle aspiration. MDM: 22:42 Patient medically screened. wa 23:44 Differential diagnosis: abscess, large on L cheek. . Data reviewed: vital signs, nurses wa notes. 23:46 Response to treatment: the patient's symptoms have markedly improved after treatment. fl 10/12 23:03 Order name: I\T\D Setup; Complete Time: 23:06 fl Administered Medications: 23:10 Drug: Motrin 600 mg Route: PO; cc3 10/13 00:00 Follow up: Response: No adverse reaction; Pain is decreased cc3 10/12 23:15 Drug: Lidocaine (1 %) 5 mg {Note: administered by Dr. Monroe left cheek abscess.} cc3 Volume: 5 ml; Route: Infiltration; 23:30 Follow up: Response: No adverse reaction cc3 23:35 Drug: Lidocaine (1 %) 5 mg {Note: administered by Dr. Monroe right cheek abscess.} cc3 Volume: 5 ml; Route: Infiltration; 23:40 Follow up: Response: No adverse reaction cc3 Disposition: 10/12/18 23:49 Discharged to Home. Impression: Bilateral facial abscesses. - Condition is Stable. - Discharge Instructions: Skin Abscess, [id number]. - Prescriptions for Doxycycline Hyclate 100 mg Oral Tablet - take 1 tablet by ORAL route 2 times a day for 7 days; 14 tablet. Ibuprofen 600 mg Oral Tablet - take 1 tablet by ORAL route every 8 hours As needed take with food; 30 tablet. - Medication Reconciliation Form, Thank You Letter, Antibiotic Education, Prescription Opioid Use, Work release form form. - Follow up: Private Physician; When: 2 - 3 days; Reason: Recheck today's complaints. - Problem is new. - Symptoms have improved. - Notes: take antibiotics as prescribed. you may use warm compresses as discussed. do no squeeze area Signatures: Melissa Anderson RN RN ak1 Crow Monroe MD MD wa Cordel, Charlene cc3 Corrections: (The following items were deleted from the chart) 10/13 00:03 10/12 23:49 10/12/2018 23:49 Discharged to Home. Impression: Bilateral facial cc3 abscesses. Condition is Stable. Forms are Medication Reconciliation Form, Thank You Letter, Antibiotic Education, Prescription Opioid Use. Follow up: Private Physician; When: 2 - 3 days; Reason: Recheck today's complaints. Problem is new. Symptoms have improved. sol
--- NOTE | 2018-10-12 23:50 | ER ---
Nurse's Notes [facility] Name: Marielle Jones Age: 27 yrs Sex: Female : 1990 Arrival Date: 10/12/2018 Time: 21:18 Bed 2 Private MD: Diagnosis: Bilateral facial abscesses Presentation: 10/12 21:28 Presenting complaint: Patient states: abscess/cyst to face. pt seen by PCP given ak1 bactrium that did not help. pt has appointment with dermatology 09/25/18 but pain has increased. Transition of care: patient was not received from another setting of care. Onset of symptoms is unknown. Risk Assessment: Do you want to hurt yourself or someone else? Patient reports no desire to harm self or others. Initial Sepsis Screen: Does the patient meet any 2 criteria? No. Patient's initial sepsis screen is negative. Does the patient have a suspected source of infection? No. Patient's initial sepsis screen is negative. Note pt stated abscess/cyst has been on face X4 months. Care prior to arrival: None. 21:28 Method Of Arrival: Ambulatory ak1 21:28 Acuity: CODY 4 ak1 Triage Assessment: 21:30 General: Appears in no apparent distress. Behavior is calm, cooperative. 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 - Social history:: Smoking status: Patient/guardian denies using tobacco. - Ebola Screening: : No symptoms or risks identified at this time. - Family history:: not pertinent. - Hospitalizations: : No recent hospitalization is reported. Screenin:34 Abuse screen: Denies threats or abuse. Denies injuries from another. Nutritional cc3 screening: No deficits noted. Tuberculosis screening: No symptoms or risk factors identified. Fall Risk Ambulatory Aid- None/Bed Rest/Nurse Assist (0 pts). Gait- Normal/Bed Rest/Wheelchair (0 pts) Mental Status- Oriented to own ability (0 pts). Assessment: 22:34 General: Appears in no apparent distress. uncomfortable, Behavior is calm, cooperative, cc3 appropriate for age. Pain: Complains of pain in left cheek and right cheek Pain does not radiate. Quality of pain is described as aching. Neuro: Level of Consciousness is awake, alert, obeys commands, Oriented to person, place, time, situation, Appropriate for age. Cardiovascular: Denies chest pain, Capillary refill < 3 seconds Patient's skin is warm and dry. Respiratory: Airway is patent Respiratory effort is even, unlabored, Respiratory pattern is regular, symmetrical. GI: Abdomen is flat. : No signs and/or symptoms were reported regarding the genitourinary system. EENT: No signs and/or symptoms were reported regarding the EENT system. Derm: Abscess located on left cheek and right cheek is quarter sized on the right and half dollar sized on the left is raised. Musculoskeletal: Circulation, motion, and sensation intact. Range of motion: intact in all extremities. 23:15 Reassessment: Patient appears in no apparent distress at this time. Patient and/or cc3 family updated on plan of care and expected duration. Pain level reassessed. Patient is alert, oriented x 3, equal unlabored respirations, skin warm/dry/pink. Dr. Monroe did I\T\D by poking the right and left cheek abscesses with a needle and aspirated it. Patient tolerated it well. 10/13 00:00 Reassessment: Patient appears in no apparent distress at this time. Patient and/or cc3 family updated on plan of care and expected duration. Pain level reassessed. Patient is alert, oriented x 3, equal unlabored respirations, skin warm/dry/pink. Dr. Monroe discharged home the patient with prescriptions given. No IV cannula in situ. Patient left ER vitally stable and ambulatory. No valuables left in the patient's room. Patient denies pain at this time. Patient states feeling better. Patient states symptoms have improved. Vital Signs: 10/12 21:30 BP 114 / 72; Pulse 99; Resp 18; Temp 98.5; Pulse Ox 100% on R/A; Weight 54.43 kg (R); ak1 Height 5 ft. 3 in. (160.02 cm) (R); Pain 10/10; 22:45 BP 112 / 77; Pulse 95; Resp 16 S; Pulse Ox 100% on R/A; cc3 23:50 BP 110 / 72; Pulse 93; Resp 17 S; Pulse Ox 100% on R/A; cc3 21:30 Body Mass Index 21.26 (54.43 kg, 160.02 cm) ak1 ED Course: 21:18 Patient arrived in ED. cl3 21:29 Triage completed. ak1 21:30 Arm band placed on Patient placed in waiting room, Patient notified of wait time. ak1 22:34 Judy Khan is Primary Nurse. cc3 22:34 Patient has correct armband on for positive identification. Bed in low position. Call cc3 light in reach. Side rails up X 1. Pulse ox on. NIBP on. 22:42 Crow Monroe MD is Attending Physician. wa 23:20 Assist provider with I \T\ D: of an abscess on right left cheek Set up I\T\D tray. cc 3 Performed by Crow Monroe MD Patient tolerated well. 10/13 00:00 Patient did not have IV access during this emergency room visit. cc3 Administered Medications: 10/12 23:10 Drug: Motrin 600 mg Route: PO; cc3 10/13 00:00 Follow up: Response: No adverse reaction; Pain is decreased cc3 10/12 23:15 Drug: Lidocaine (1 %) 5 mg {Note: administered by Dr. Monroe left cheek abscess.} cc3 Volume: 5 ml; Route: Infiltration; 23:30 Follow up: Response: No adverse reaction cc3 23:35 Drug: Lidocaine (1 %) 5 mg {Note: administered by Dr. Monroe right cheek abscess.} cc3 Volume: 5 ml; Route: Infiltration; 23:40 Follow up: Response: No adverse reaction cc3 Outcome: 23:49 Discharge ordered by . ar 10/13 00:00 Discharged to home ambulatory. cc3 Condition: stable Discharge instructions given to patient, Instructed on discharge instructions, follow up and referral plans. medication usage, Demonstrated understanding of instructions, follow-up care, medications, Prescriptions given X 2. 00:03 Patient left the ED. cc3 Signatures: Melissa Anderson RN RN ak1 Crow Monroe MD MD wa Cordel, Charlene cc3 Eduin White cl3
== END 2018-10-13 00:03 | disposition home or self-care (01) ==
LOC: ER 21:15
PROC: 0J910ZZ Drainage of Face Subcutaneous Tissue and Fascia, Open Approach (ICD-10-PCS; principal; 2018-10-13)
DX: L02.01 Cutaneous abscess of face (principal)
CPT/HCPCS: 99284

== ENCOUNTER 2018-10-27 07:52 | Emergency (ER) | payer SELFPAY ==
--- OUTSIDE RECORDS SUMMARY | 2018-10-27 07:53 | XMS REPORT ---
:1990 [facility] Address [address] [place] [address] Dr. Ste[address] [place] [id number] Care Team Providers Name Role Phone Unavailable Unavailable Unavailable Problems This patient has no known problems. Allergies, Adverse Reactions, Alerts This patient has no known allergies or adverse reactions. Medications This patient has no known medications. Encounters Start End Encounter Admission Attending Care Care Encounter Date/Time Date/Time Type Type Clinicians Facility Department ID 2016-09-29 2016-10-04 Outpatient [facility] [id number] 00:00:00 00:00:00
--- OUTSIDE RECORDS SUMMARY | 2018-10-27 07:53 | XMS REPORT | Clinical Summary ---
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
[2018-10-27] MEDS ORDERED: LIDOCAINE 1% MPF 5 ML VIAL ONE (09:40)
[2018-10-27] MEDS ORDERED: BUPIVACAINE 0.25% PF 10 ML VIAL ONE (09:40)
[2018-10-27] MEDS ORDERED: LIDOCAINE 1% W/EPI 1:100,000 MDV 50 ML VIAL ONE (09:48)
--- NOTE | 2018-10-27 10:17 | ER ---
Nurse's Notes [facility] Name: Marielle Jones Age: 27 yrs Sex: Female : 1990 Arrival Date: 10/27/2018 Time: 07:53 Bed Treatment Private MD: Diagnosis: Cutaneous abscess of face-left cheek Presentation: 10/27 08:24 Presenting complaint: Patient states: abscess to L side of face x 4 months. Transition ss of care: patient was not received from another setting of care. Onset of symptoms is unknown. Risk Assessment: Do you want to hurt yourself or someone else? Patient reports no desire to harm self or others. Initial Sepsis Screen: Does the patient meet any 2 criteria? No. Patient's initial sepsis screen is negative. Does the patient have a suspected source of infection? No. Patient's initial sepsis screen is negative. Care prior to arrival: None. 08:24 Method Of Arrival: Ambulatory ss 08:24 Acuity: CODY 4 ss Historical: - Allergies: 08:26 No Known Allergies; ss - Home Meds: 08:26 None [Active]; ss - PMHx: 08:26 Asthma; ss - PSHx: 08:26 None; ss - Immunization history:: Adult Immunizations up to date. - Social history:: Smoking status: Patient/guardian denies using tobacco. - Ebola Screening: : Patient denies exposure to infectious person Patient denies travel to an Ebola-affected area in the 21 days before illness onset. Screenin:32 Abuse screen: Denies threats or abuse. Denies injuries from another. Nutritional ss screening: No deficits noted. Tuberculosis screening: Never had TB. Fall Risk None identified. Assessment: 09:32 General: Appears in no apparent distress. comfortable, Behavior is calm, cooperative. ss Pain: Complains of pain in left cheek Pain currently is 10 out of 10 on a pain scale. Pain began 4 months ago Is continuous, Aggravated by palpation Noted to be grimacing. Neuro: Level of Consciousness is awake, alert, obeys commands, Oriented to person, place, time, situation. Cardiovascular: Capillary refill < 3 seconds is brisk in bilateral fingers. Respiratory: Airway is patent Respiratory effort is even, unlabored, Respiratory pattern is regular, symmetrical. GI: No signs and/or symptoms were reported involving the gastrointestinal system. : No signs and/or symptoms were reported regarding the genitourinary system. EENT: Oral mucosa is moist. Throat is clear. Derm: Skin is pink, warm \T\ dry. 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 Musculoskeletal: Range of motion: intact in all extremities. Vital Signs: 08:23 BP 105 / 71; Pulse 80; Resp 16; Temp 98.3(TE); Pulse Ox 100% on R/A; Weight 54.43 kg; ss Height 5 ft. 3 in. (160.02 cm); Pain 10; 08:23 Body Mass Index 21.26 (54.43 kg, 160.02 cm) ss ED Course: 07:53 Patient arrived in ED. as 08:23 Arm band placed on right wrist. ss 08:25 Triage completed. ss 09:24 Cristhian Hernandez PA is PHCP. cp 09:24 Isaac Blakely MD is Attending Physician. cp 09:32 Caro Kaplan RN is Primary Nurse. ss 09:32 Patient has correct armband on for positive identification. Bed in low position. Call ss light in reach. 10:15 Assist provider with I \T\ D: of an abscess on L side of face/ cheek Set up I\T\D tray. ss Performed by Cristhian LIAO Culture sent to lab. Wound packed. iodoform gauze, Dressing with 4X4s, tape Patient tolerated well. Patient did not have IV access during this emergency room visit. 10:16 Ab Hinojosa MD is Referral Physician. cp Administered Medications: 10:06 Drug: Lidocaine-Epinephrine -1%: (1:100,000) 5 ml {Note: Administered by tomy Herrera.} Volume: 20 ml; Route: Infiltration; 10:06 Drug: Marcaine (0.5 %) 5 ml {Note: administered by KESHAWN Herrera.} Volume: 10 ml; ss Route: Infiltration; Outcome: 10:16 Discharge ordered by . cp 10:29 Discharged to home ambulatory. ss 10:29 Condition: good 10:29 Discharge instructions given to patient, Instructed on discharge instructions, follow up and referral plans. wound care, Demonstrated understanding of instructions, follow-up care, medications, wound care, Prescriptions given X 2. 10:30 Patient left the ED. Signatures: Margie Shelby Shelby, RN RN Cristhian Hernandez, KESHAWN PA cp
--- NOTE | 2018-10-27 10:17 | EDPHYS ---
Physician Documentation [facility] Name: Marielle Jones Age: 27 yrs Sex: Female : 1990 Arrival Date: 10/27/2018 Time: 07:53 Bed Treatment Private MD: ED Physician Isaac Blakely HPI: 10/27 09:45 This 27 yrs old Black Female presents to ER via Ambulatory with complaints of Facial cp Swelling, Cyst. 09:45 the patient presents with a swollen area of the left facial cheek. cp 09:45 Description: fluctuant, swollen. Onset: The symptoms/episode began/occurred 4 month(s) cp ago. Associated signs and symptoms: Pertinent negatives: discharge, drainage, fever, headache, vomiting. 09:45 Patient returns to ED after being seen 10-13-2018 for similar complaints. At that visit, cp patient reports left facial "cyst" was aspirated and drained. Patient was told to f/u with instrument technologist but has not been able. Historical: - Allergies: 08:26 No Known Allergies; ss - Home Meds: 08:26 None [Active]; ss - PMHx: 08:26 Asthma; ss - PSHx: 08:26 None; ss - Immunization history:: Adult Immunizations up to date. - Social history:: Smoking status: Patient/guardian denies using tobacco. - Ebola Screening: : Patient denies exposure to infectious person Patient denies travel to an Ebola-affected area in the 21 days before illness onset. ROS: 09:50 Skin: Positive for abscess, of the left facial cheek. cp 09:50 Eyes: Negative for injury, pain, redness, and discharge. cp 09:50 Constitutional: Negative for body aches, chills, fever, poor PO intake. 09:50 Respiratory: Negative for cough, shortness of breath, wheezing. 09:50 Abdomen/GI: Negative for abdominal pain, nausea, vomiting, and diarrhea. 09:50 All other systems are negative. Exam: 10:00 Constitutional: The patient appears in no acute distress, alert, awake, non-toxic, well cp developed, well nourished. 10:00 Head/face: Noted is swelling, that is mild, of the left cheek, tenderness, that is cp moderate, of the left cheek. 10:00 Eyes: Periorbital structures: appear normal, Pupils: equal, round, and reactive to light and accomodation, Extraocular movements: intact throughout, Conjunctiva: normal, no exudate, no injection, Lids and lashes: appear normal, bilaterally. 10:00 ENT: External ear(s): are unremarkable, Ear canal(s): are normal, clear, TM's: dullness, bilaterally, Nose: is normal, Mouth: Lips: moist, Oral mucosa: pink and intact, moist, Posterior pharynx: is normal, airway is patent, no erythema, no exudate. 10:00 Chest/axilla: Inspection: normal, Palpation: is normal, no crepitus, no tenderness. cp 10:00 Cardiovascular: Rate: normal, Rhythm: regular. 10:00 Respiratory: the patient does not display signs of respiratory distress, Respirations: normal, no use of accessory muscles, no retractions. 10:00 Abdomen/GI: Exam negative for discomfort, distension, guarding, Inspection: abdomen appears normal. Vital Signs: 08:23 BP 105 / 71; Pulse 80; Resp 16; Temp 98.3(TE); Pulse Ox 100% on R/A; Weight 54.43 kg; ss Height 5 ft. 3 in. (160.02 cm); Pain 11/24; 08:23 Body Mass Index 21.26 (54.43 kg, 160.02 cm) Procedures: 10:14 I \\T\\ D: Incision and drainage was performed for an abscess of the left facial cheek cp Prepped with Betadine, Anesthetized with 4 ccs of mixture 1% lidocaine with epi and 0.5% marcaine. Incised with #11 blade. Drained moderate amount purulent fluid. Cultures obtained. Packed with iodoform gauze, Dressing: sterile 4x4 gauze, the patient tolerated the procedure well. MDM: 09:29 Patient medically screened. cp 10:15 Data reviewed: vital signs, nurses notes, and as a result, I will discharge patient. 10/27 09:57 Order name: Wound Culture 10/27 09:35 Order name: I\\T\\D Setup; Complete Time: 09:55 cp Administered Medications: 10:06 Drug: Lidocaine-Epinephrine -1%: (1:100,000) 5 ml {Note: Administered by tomy Herrera PA.} Volume: 20 ml; Route: Infiltration; 10:06 Drug: Marcaine (0.5 %) 5 ml {Note: administered by PA. Sharon} Volume: 10 ml; ss Route: Infiltration; Disposition: 10:35 Chart complete. cp 10:40 Co-signature as Attending Physician, Isaac Blakely MD. ma2 Disposition: 10/27/18 10:16 Discharged to Home. Impression: Cutaneous abscess of face - left cheek. - Condition is Stable. - Discharge Instructions: Skin Abscess, Incision and Drainage. - Prescriptions for Clindamycin HCl 300 mg Oral Capsule - take 1 capsule by ORAL route every 6 hours for 10 days; 40 capsule. Tylenol- Codeine #3 300-30 mg Oral Tablet - take 2 tablets by ORAL route every 8 hours As needed; 12 tablet. - Work release form, Medication Reconciliation Form, Thank You Letter, Antibiotic Education, Prescription Opioid Use form. - Follow up: Ab Hinojosa MD; When: Tomorrow; Reason: Wound Recheck. - Problem is an ongoing problem. - Symptoms have improved. Signatures: Dispatcher [employer] EDCaro Mckeon RN RN Cristhian Umana PA PA cp Alzahri, Mohammad, MD MD ma2 Corrections: (The following items were deleted from the chart) 10:30 10:16 10/27/2018 10:16 Discharged to Home. Impression: Cutaneous abscess of face - left ss cheek. Condition is Stable. Forms are Medication Reconciliation Form, Thank You Letter, Antibiotic Education, Prescription Opioid Use. Follow up: Dr. Ab Hinojosa; When: Tomorrow; Reason: Wound Recheck. Problem is an ongoing problem. Symptoms have improved. cp
[2018-10-27 10:35] VITALS: BP 105/71; TEMP 98.3; O2SAT 100
== END 2018-10-27 10:30 | disposition home or self-care (01) ==
LOC: ER 07:52
PROC: 0J910ZZ Drainage of Face Subcutaneous Tissue and Fascia, Open Approach (ICD-10-PCS; principal; 2018-10-27)
DX: L02.01 Cutaneous abscess of face (principal)
CPT/HCPCS: 87070; 87205; 99284

== ENCOUNTER 2019-02-08 06:53 | Emergency (ER) | payer SELFPAY ==
--- OUTSIDE RECORDS SUMMARY | 2019-02-08 06:55 | XMS REPORT ---
:1990 [facility] Address [address] [place] [address] Dr. Steen [address] [place] [id number] Care Team Providers Name Role Phone Unavailable Unavailable Unavailable Problems This patient has no known problems. Allergies, Adverse Reactions, Alerts This patient has no known allergies or adverse reactions. Medications This patient has no known medications. Encounters Start End Encounter Admission Attending Care Care Encounter Date/Time Date/Time Type Type Clinicians Facility Department ID 2016-09-29 2016-10-04 Outpatient [facility] [id number] 00:00:00 00:00:00
[2019-02-08 07:59] LABS: Urine Blood NEGATIVE (NEG); Urine Glucose NEGATIVE (NEG); Urine Protein NEGATIVE (NEG); Urine pH 8.5 (5.0-7.0)
[2019-02-08 07:59] LABS: Urine Bacteria <20 /HPF (<20); Urine Culture Reflex Order NOT NEEDED; Urine Mucus HEAVY /HPF (NONE SEEN); Urine RBC <5 /HPF (NONE SEEN)
--- NOTE | 2019-02-08 08:43 | ER ---
Nurse's Notes [facility] Name: Marielle Jones Age: 28 yrs Sex: Female : 1990 Arrival Date: 02/08/2019 Time: 06:56 Bed 13 Private MD: Diagnosis: Bacterial Vaginosis;Acne Presentation: 02/08 07:07 Presenting complaint: Patient states: 2 DAYS UTI S/S. Transition of care: patient was bp not received from another setting of care. Onset of symptoms is unknown. Risk Assessment: Do you want to hurt yourself or someone else? Patient reports no desire to harm self or others. Initial Sepsis Screen: Does the patient meet any 2 criteria? HR > 90 bpm. No. Patient's initial sepsis screen is negative. Does the patient have a suspected source of infection? No. Patient's initial sepsis screen is negative. Care prior to arrival: None. 07:07 Method Of Arrival: Ambulatory bp 07:07 Acuity: CODY 4 bp Triage Assessment: 07:09 General: Appears in no apparent distress. comfortable, Behavior is calm, cooperative, bp appropriate for age. Pain: Denies pain. EENT: No deficits noted. Neuro: No deficits noted. Cardiovascular: No deficits noted. Respiratory: No deficits noted. GI: No signs and/or symptoms were reported involving the gastrointestinal system. : No signs and/or symptoms were reported regarding the genitourinary system. Derm: No deficits noted. Musculoskeletal: No deficits noted. 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 - Social history:: Smoking status: Patient/guardian denies using tobacco. - Ebola Screening: : No symptoms or risks identified at this time. Screenin:11 Abuse screen: Denies threats or abuse. Denies injuries from another. Nutritional bp screening: No deficits noted. Tuberculosis screening: No symptoms or risk factors identified. Fall Risk None identified. Assessment: 07:11 General: SEE TRIAGE NOTE. bp 08:55 Reassessment: Patient appears in no apparent distress at this time. Patient and/or em family updated on plan of care and expected duration. Pain level reassessed. Patient is alert, oriented x 3, equal unlabored respirations, skin warm/dry/pink. Vital Signs: 07:09 BP 113 / 76; Pulse 98; Resp 16; Temp 98.5; Pulse Ox 99% ; Weight 54.43 kg; Height 5 ft. bp 3 in. (160.02 cm); 07:09 Body Mass Index 21.26 (54.43 kg, 160.02 cm) bp ED Course: 06:56 Patient arrived in ED. ds1 07:02 Taj Peraza, RN is Primary Nurse. bp 07:08 Triage completed. bp 07:09 Arm band placed on. bp 07:11 Patient has correct armband on for positive identification. Bed in low position. Call bp light in reach. Side rails up X2. 07:11 No provider procedures requiring assistance completed. Patient did not have IV access bp during this emergency room visit. 07:21 Sarbjit Cee [facility]-C [facility]. la1 07:21 Jefferson Blair MD is Attending Physician. la1 07:35 Urine collected: clean catch specimen, clear. dh3 Administered Medications: No medications were administered Outcome: 08:42 Discharge ordered by . la1 08:54 Discharged to home ambulatory. em 08:54 Condition: good 08:54 Discharge instructions given to patient, Instructed on discharge instructions, follow up and referral plans. medication usage, Demonstrated understanding of instructions, follow-up care, medications, Prescriptions given X 2. 08:56 Patient left the ED. em Signatures: Adriel Casas, TRAM SAVAGEN Amanda Mccollum ds1 Sarbjit Cee FNP-C [facility] 3 Taj Peraza, RN RN bp
--- NOTE | 2019-02-08 08:44 | EDPHYS ---
Physician Documentation [facility] Name: Marielle Jones Age: 28 yrs Sex: Female : 1990 Arrival Date: 02/08/2019 Time: 06:56 Bed 13 Private MD: ED Physician Jefferson Blair HPI: 02/08 07:26 This 28 yrs old Black Female presents to ER via Ambulatory with complaints of Vaginal la1 Itching, Pelvic Pressure, Facial Irritation. 07:26 The patient presents with vaginal irritation. Onset: The symptoms/episode la1 began/occurred 2 day(s) ago. Modifying factors: The symptoms are alleviated by nothing, the symptoms are aggravated by nothing. 07:33 Associated signs and symptoms: Pertinent positives: vaginal discharge, Pertinent la1 negatives: constipation, cramping, diarrhea, hematuria, vaginal bleeding. The patient is not sexually active. pt reports two day hx of vaginal irritation, has also had problems with facial acne for the last few weeks. 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 - Social history:: Smoking status: Patient/guardian denies using tobacco. - Ebola Screening: : No symptoms or risks identified at this time. ROS: 07:34 Positive for vaginal discharge, vaginal itching, Negative for hematuria, pelvic la1 pain, flank pain, difficulty urinating, bladder incontinence. 07:34 Constitutional: Negative for fever, chills, and weight loss. 07:34 Eyes: Negative for injury, pain, redness, and discharge, ENT: Negative for injury, pain, and discharge, Cardiovascular: Negative for chest pain, palpitations, and edema, Respiratory: Negative for shortness of breath, cough, wheezing, and pleuritic chest pain, Abdomen/GI: Negative for abdominal pain, nausea, vomiting, diarrhea, and constipation, Back: Negative for injury and pain, MS/Extremity: Negative for injury and deformity. 07:34 : Positive for vaginal discharge, vaginal itching, Negative for hematuria, pelvic pain, flank pain, burning with urination, difficulty urinating, bladder incontinence, foul smelling urine, vaginal bleeding. Exam: 08:29 Constitutional: This is a well developed, well nourished patient who is awake, alert, la1 and in no acute distress. Head/Face: Normocephalic, atraumatic. Eyes: Pupils equal round and reactive to light, extra-ocular motions intact. Periorbital areas with no swelling, redness, or edema. ENT: . Mucous membranes moist. Neck: . No Meningismus. Cardiovascular: Regular rate and rhythm with a normal S1 and S2. No gallops, murmurs, or rubs. Normal PMI, no JVD. No pulse deficits. Respiratory: Lungs have equal breath sounds bilaterally, clear to auscultation No rales, rhonchi or wheezes noted. No increased work of breathing, no retractions or nasal flaring. Abdomen/GI: Soft, non-tender, with normal bowel sounds. No distension or tympany. No guarding or rebound. No evidence of tenderness throughout. Female : Normal external genitalia. 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 Vital Signs: 07:09 BP 113 / 76; Pulse 98; Resp 16; Temp 98.5; Pulse Ox 99% ; Weight 54.43 kg; Height 5 ft. bp 3 in. (160.02 cm); 07:09 Body Mass Index 21.26 (54.43 kg, 160.02 cm) bp MDM: 07:21 Patient medically screened. la1 08:40 Data reviewed: vital signs, nurses notes, lab test result(s), I have discussed the la1 patient's presentation/case with the attending Emergency Department Physician; and as a result, I will discharge patient. Data interpreted: Pulse oximetry: Interpretation: normal. Counseling: I had a detailed discussion with the patient and/or guardian regarding: the historical points, exam findings, and any diagnostic results supporting the discharge/admit diagnosis, lab results, the need for outpatient follow up, an OB/Gyne specialist. ED course: Pt denies new sexual partners, uses protection, does not believe she has a STI. Clue cells present on wet prep. 02/08 07:35 Order name: Urine Microscopic Only; Complete Time: 08:00 dh3 02/08 07:37 Order name: Urine Dipstick--Ancillary (enter results); Complete Time: 08:00 ms 02/08 07:26 Order name: Urine Dipstick-Ancillary (obtain specimen); Complete Time: 07:38 la1 02/08 07:26 Order name: Urine Test (obtain specimen); Complete Time: 07:38 la1 02/08 07:37 Order name: Urine --Ancillary (enter results); Complete Time: 08:00 ms 02/08 08:02 Order name: Wet Prep; Complete Time: 08:39 la1 02/08 08:02 Order name: Pelvic Exam Setup; Complete Time: 08:31 la1 Administered Medications: No medications were administered Disposition: 13:01 Co-signature as Attending Physician, Jefferson Blair MD. kdr Disposition: 02/08/19 08:42 Discharged to Home. Impression: Bacterial Vaginosis, Acne. - Condition is Stable. - Discharge Instructions: Bacterial Vaginosis, Bacterial Vaginosis, [id number]. - Prescriptions for benzoyl peroxide 3 % Topical cleanser - apply 1 application by TOPICAL route once daily then massage gently 10-20 seconds, rinse, and pat dry; 1 bottle. Flagyl 500 mg Oral Tablet - take 1 tablet by ORAL route every 12 hours for 7 days; 14 tablet. - Medication Reconciliation Form, Thank You Letter, Antibiotic Education form. - Follow up: Private Physician; When: 2 - 3 days; Reason: Recheck today's complaints, Re-evaluation by your physician. - Problem is new. - Symptoms are unchanged. Signatures: Dispatcher [employer] [facility] Jefferson Blair MD MD [facility] Adriel Casas, FIRE SUPERVISOR FIRE SUPERVISOR em Sarbjit Cee, HOUSEHOLD PERSONAL ASSISTANT-C HOUSEHOLD PERSONAL ASSISTANT-Cla1 Taj Peraza, RN RN bp Corrections: (The following items were deleted from the chart) 08:56 08:42 02/08/2019 08:42 Discharged to Home. Impression: Bacterial Vaginosis; Acne. em Condition is Stable. Forms are Medication Reconciliation Form, Thank You Letter, Antibiotic Education, Prescription Opioid Use. Follow up: Private Physician; When: 2 - 3 days; Reason: Recheck today's complaints, Re-evaluation by your physician. Problem is new. Symptoms are unchanged. la1
[2019-02-08 09:08] VITALS: BP 113/76; TEMP 98.5; O2SAT 99
== END 2019-02-08 08:56 | disposition home or self-care (01) ==
LOC: ER 06:53
DX: N76.0 Acute vaginitis (principal); L70.9 Acne, unspecified
CPT/HCPCS: 81003; 81015; 81025; 87210; 99283

== ENCOUNTER 2019-03-23 17:17 | Emergency (ER) | payer SELFPAY ==
--- OUTSIDE RECORDS SUMMARY | 2019-03-23 17:19 | XMS REPORT ---
:1990 [facility] Address [address] [place] [address] Dr. Ste[address] [place] [address] Care Team Providers Name Role Phone Unavailable Unavailable Unavailable Problems This patient has no known problems. Allergies, Adverse Reactions, Alerts This patient has no known allergies or adverse reactions. Medications This patient has no known medications. Encounters Start End Encounter Admission Attending Care Care Encounter Date/Time Date/Time Type Type Clinicians Facility Department ID 2016-09-29 2016-10-[address] [facility] [id number] 00:00:00 00:00:00
--- NOTE | 2019-03-23 17:36 | EDPHYS ---
Physician Documentation [facility] Name: Marielle Jones Age: 28 yrs Sex: Female : 1990 Arrival Date: 03/23/2019 Time: 17:20 Bed 8 Private MD: ED Physician Rick Willard HPI: 03/23 17:33 This 28 yrs old Black Female presents to ER via Ambulatory with complaints of Ear Pain. jmm 17:33 The patient presents with pain. Onset: The symptoms/episode began/occurred gradually, jmm last night. Modifying factors: The symptoms are alleviated by nothing, the symptoms are aggravated by nothing. Associated signs and symptoms: Pertinent negatives: cough, sore throat. Patient states she was recently recovering from a cold. Denies fever or chills. . 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 - Coronavirus screen:: The patient has NOT traveled to [place], [place], or [place] in the past 14 days. - Social history:: Smoking status: Smoking status: Patient denies any tobacco usage or history of. - Ebola Screening: : Patient denies travel to an Ebola-affected area in the 21 days before illness onset. ROS: 17:33 Constitutional: Negative for fever, chills, and weight loss, Cardiovascular: Negative jmm for chest pain, palpitations, and edema, Respiratory: Negative for shortness of breath, cough, wheezing, and pleuritic chest pain. 17:33 ENT: Positive for ear pain. 17:33 All other systems are negative. Exam: 17:33 Constitutional: This is a well developed, well nourished patient who is awake, alert, jmm and in no acute distress. Head/Face: atraumatic. Eyes: EOMI, no conjunctival erythema appreciated 17:33 Neck: Trachea midline, Supple Chest/axilla: Normal chest wall appearance and motion. Cardiovascular: Regular rate and rhythm. No edema appreciated Respiratory: Normal respirations, no respiratory distress appreciated Abdomen/GI: Non distended, soft Back: Normal ROM Skin: General appearance color normal MS/ Extremity: Moves all extremities, no obvious deformities appreciated, no edema noted to the lower extremities Neuro: Awake and alert, normal gait Psych: Behavior is normal, Mood is normal, Patient is cooperative and pleasant 17:33 ENT: TM's: erythema, that is moderate, on the right. Vital Signs: 17:24 BP 109 / 83; Pulse 107; Resp 17; Temp 98.9(TE); Pulse Ox 99% on R/A; Weight 54.43 kg tw2 (R); Height 5 ft. 3 in. (160.02 cm); Pain 7/10; 17:24 Body Mass Index 21.26 (54.43 kg, 160.02 cm) tw2 MDM: 17:33 Patient medically screened. [facility] 17:33 Data reviewed: vital signs, nurses notes. Counseling: I had a detailed discussion with rosi the patient and/or guardian regarding: the historical points, exam findings, and any diagnostic results supporting the discharge/admit diagnosis, the need for outpatient follow up, to return to the emergency department if symptoms worsen or persist or if there are any questions or concerns that arise at home. ED course: . Administered Medications: No medications were administered Disposition: 18:32 Co-signature as Attending Physician, Rick Willard MD. rn Disposition: 03/23/19 17:35 Discharged to Home. Impression: Acute serous otitis media. - Condition is Stable. - Discharge Instructions: Otitis Media, Adult. - Prescriptions for Amoxicillin 875 mg Oral Tablet - take 1 tablet by ORAL route every 12 hours for 10 days; 20 tablet. - Medication Reconciliation Form, Thank You Letter, Antibiotic Education, Prescription Opioid Use, Work release form form. - Follow up: Private Physician; When: 2 - 3 days; Reason: Recheck today's complaints, Continuance of care, Re-evaluation by your physician. Signatures: Rajendra Esquivel PA PA jmm Nieto, Roman, MD MD rn Hall, Patricia, RN RN Ally Crandall RN RN tw2 Corrections: (The following items were deleted from the chart) 17:49 17:35 03/23/2019 17:35 Discharged to Home. Impression: Acute serous otitis media. ph Condition is Stable. Forms are Work release form, Medication Reconciliation Form, Thank You Letter, Antibiotic Education, Prescription Opioid Use. Follow up: Private Physician; When: 2 - 3 days; Reason: Recheck today's complaints, Continuance of care, Re-evaluation by your physician. rosi
--- NOTE | 2019-03-23 17:36 | ER ---
Nurse's Notes [facility] Name: Marielle Jones Age: 28 yrs Sex: Female : 1990 Arrival Date: 03/23/2019 Time: 17:20 Bed 8 Private MD: Diagnosis: Acute serous otitis media Presentation: 03/23 17:22 Presenting complaint: Patient states: my RIGHT ear started hurting last night, i am tw2 having some nasal congestion, no cough, i am getting over a cold so i am still dealing with that. Transition of care: patient was not received from another setting of care. Onset of symptoms was March 23, 2019. Risk Assessment: Do you want to hurt yourself or someone else? Patient reports no desire to harm self or others. Initial Sepsis Screen: Does the patient meet any 2 criteria? No. Patient's initial sepsis screen is negative. Does the patient have a suspected source of infection? No. Patient's initial sepsis screen is negative. Care prior to arrival: None. 17:22 Method Of Arrival: Ambulatory tw2 17:22 Acuity: CODY 4 tw2 Triage Assessment: 17:24 General: Appears in no apparent distress. slender, Behavior is calm, cooperative, tw2 appropriate for age. Pain: Complains of pain in right ear. EENT: Reports pain in right ear. 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 - Coronavirus screen:: The patient has NOT traveled to [place], [place], or [place] in the past 14 days. - Social history:: Smoking status: Smoking status: Patient denies any tobacco usage or history of. - Ebola Screening: : Patient denies travel to an Ebola-affected area in the 21 days before illness onset. Screenin:28 Abuse screen: Denies threats or abuse. Nutritional screening: No deficits noted. tw2 Tuberculosis screening: No symptoms or risk factors identified. Fall Risk None identified. Assessment: 17:47 General: Appears in no apparent distress. comfortable, slender, well groomed, Behavior ph is calm, cooperative, appropriate for age. Pain: Complains of pain in right ear. Neuro: Level of Consciousness is awake, alert, confused, Oriented to person, place, time, situation. Cardiovascular: Capillary refill < 3 seconds in bilateral fingers Patient's skin is warm and dry. Respiratory: Reports cough that is non-productive, Airway is patent Respiratory effort is even, unlabored, Breath sounds are clear bilaterally. EENT: Reports pain in right ear. Derm: Skin is intact, is healthy with good turgor, Skin is pink, warm \T\ dry. Musculoskeletal: Circulation, motion, and sensation intact. Range of motion: intact in all extremities. Vital Signs: 17:24 BP 109 / 83; Pulse 107; Resp 17; Temp 98.9(TE); Pulse Ox 99% on R/A; Weight 54.43 kg tw2 (R); Height 5 ft. 3 in. (160.02 cm); Pain 7/10; 17:24 Body Mass Index 21.26 (54.43 kg, 160.02 cm) tw2 ED Course: 17:20 Patient arrived in ED. rg4 17:24 Triage completed. tw2 17:24 Arm band placed on. tw2 17:26 Joann Romero, RN is Primary Nurse. ph 17:26 Bed in low position. Call light in reach. tw2 17:28 Rajendra Esquivel PA is PHCP. [facility] 17:28 Rick Willard MD is Attending Physician. [facility] 17:49 No provider procedures requiring assistance completed. Patient did not have IV access ph during this emergency room visit. Administered Medications: No medications were administered Outcome: 17:35 Discharge ordered by . [facility] 17:49 Discharged to home ambulatory. ph 17:49 Condition: good 17:49 Discharge instructions given to patient, Instructed on discharge instructions, follow up and referral plans. medication usage, Demonstrated understanding of instructions, follow-up care, medications, Prescriptions given X 1. 17:49 Patient left the ED. ph Signatures: Rajendra Esquivel PA PA jmm Hall, Patricia, DEISY RN Ally Marin RN RN tw2 Frances Dotson rg4
== END 2019-03-23 17:49 | disposition home or self-care (01) ==
LOC: ER 17:17
DX: H65.01 Acute serous otitis media, right ear (principal)
CPT/HCPCS: 99282

== ENCOUNTER 2019-06-25 22:53 | Emergency (ER) | payer SELFPAY ==
--- OUTSIDE RECORDS SUMMARY | 2019-06-25 22:54 | XMS REPORT | Clinical Summary ---
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
--- NOTE | 2019-06-25 23:03 | EDPHYS ---
Physician Documentation [facility] Name: Marielle Jones Age: 28 yrs Sex: Female : 1990 Arrival Date: 06/25/2019 Time: 22:55 Bed 5 Private MD: ED Physician Dinh Brown HPI: 06/24 23:10 This 28 yrs old Black Female presents to ER via Ambulatory with complaints of Abscess. snw 23:11 The patient presents with an abscess of the left cheek. Description: The affected area snw is small, localized, erythematous, swollen. Onset: The symptoms/episode began/occurred suddenly, 2 day(s) ago, s/p popped with grease to cheek. Possible cause(s): unknown. Associated signs and symptoms: The patient has no apparent associated signs or symptoms. Severity of symptoms: At their worst the symptoms were mild. The patient has experienced a previous episode, but today's symptoms are not as bad as this previous episode. It is unknown whether or not the patient has recently seen a physician. 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 - Social history:: Smoking status: Patient denies any tobacco usage or history of. Patient/guardian denies using alcohol, street drugs, tobacco products. ROS: 23:03 Constitutional: Negative for fever, chills, and weight loss, Eyes: Negative for injury, snw pain, redness, and discharge, ENT: Negative for injury, pain, and discharge, Neck: Negative for injury, pain, and swelling, Cardiovascular: Negative for chest pain, palpitations, and edema, Respiratory: Negative for shortness of breath, cough, wheezing, and pleuritic chest pain, Abdomen/GI: Negative for abdominal pain, nausea, vomiting, diarrhea, and constipation, Back: Negative for injury and pain, : Negative for injury, bleeding, discharge, and swelling, MS/Extremity: Negative for injury and deformity, Neuro: Negative for headache, weakness, numbness, tingling, and seizure, Psych: Negative for depression, anxiety, suicide ideation, homicidal ideation, and hallucinations. 23:03 Skin: Positive for abscess, of the left cheek. Exam: 23:03 Constitutional: This is a well developed, well nourished patient who is awake, alert, snw and in no acute distress. Eyes: Pupils equal round and reactive to light, extra-ocular motions intact. Lids and lashes normal. Conjunctiva and sclera are non-icteric and not injected. Cornea within normal limits. Periorbital areas with no swelling, redness, or edema. ENT: Nares patent. No nasal discharge, no septal abnormalities noted. Tympanic membranes are normal and external auditory canals are clear. Oropharynx with no redness, swelling, or masses, exudates, or evidence of obstruction, uvula midline. Mucous membranes moist. Neck: Trachea midline, no thyromegaly or masses palpated, and no cervical lymphadenopathy. Supple, full range of motion without nuchal rigidity, or vertebral point tenderness. No Meningismus. Chest/axilla: Normal chest wall appearance and motion. Nontender with no deformity. No lesions are appreciated. Cardiovascular: Regular rate and rhythm with a normal S1 and S2. No gallops, murmurs, or rubs. Normal PMI, no JVD. No pulse deficits. Respiratory: Lungs have equal breath sounds bilaterally, clear to auscultation and percussion. No rales, rhonchi or wheezes noted. No increased work of breathing, no retractions or nasal flaring. Abdomen/GI: Soft, non-tender, with normal bowel sounds. No distension or tympany. No guarding or rebound. No evidence of tenderness throughout. Back: No spinal tenderness. No costovertebral tenderness. Full range of motion. Skin: Warm, dry with normal turgor. Normal color with no rashes, no lesions, and no evidence of cellulitis. MS/ Extremity: Pulses equal, no cyanosis. Neurovascular intact. Full, normal range of motion. Neuro: Awake and alert, GCS 15, oriented to person, place, time, and situation. Cranial nerves II-XII grossly intact. Motor strength 5/5 in all extremities. Sensory grossly intact. Cerebellar exam normal. Normal gait. Psych: Awake, alert, with orientation to person, place and time. Behavior, mood, and affect are within normal limits. 23:03 Head/face: Noted is erythema, that is mild, of the left cheek, swelling, tenderness. Vital Signs: 23:04 BP 110 / 85; Pulse 80; Resp 17; Temp 98.7; Pulse Ox 100% ; Pain 8/10; ll1 MDM: 23:02 Patient medically screened. snw 23:08 Data reviewed: vital signs, nurses notes. Data interpreted: Pulse oximetry: on room air snw is 100 %. Interpretation: normal. Counseling: I had a detailed discussion with the patient and/or guardian regarding: the historical points, exam findings, and any diagnostic results supporting the discharge/admit diagnosis, the presence of at least one elevated blood pressure reading (>120/80) during this emergency department visit, the need for outpatient follow up, to return to the emergency department if symptoms worsen or persist or if there are any questions or concerns that arise at home. Special discussion: I have referred the patient to see his PCP for further evaluation of high blood pressure. Based on the history and exam findings, there is no indication for further emergent testing or inpatient evaluation. I discussed with the patient/guardian the need to see the primary care provider for further evaluation of the symptoms. Administered Medications: 23:10 Drug: Doxycycline 100 mg Route: PO; rv 23:19 Follow up: Response: No adverse reaction rv 23:10 Drug: TORadol 30 mg Route: IM; Site: right deltoid; rv 23:19 Follow up: Response: No adverse reaction rv Disposition: 06/25 07:06 Co-signature as Attending Physician, Dinh Brown MD I agree with the assessment and [facility] plan of care. Disposition: 06/25/19 23:02 Discharged to Home. Impression: Cutaneous abscess of face. - Condition is Stable. - Discharge Instructions: Skin Abscess, Heat Therapy. - Prescriptions for Mobic 7.5 mg Oral Tablet - take 1 tablet by ORAL route once daily take with food; 20 tablet. Clindamycin HCl 300 mg Oral Capsule - take 1 capsule by ORAL route every 6 hours for 10 days; 40 capsule. - Work release form, Medication Reconciliation Form, Thank You Letter, Antibiotic Education, Prescription Opioid Use form. - Follow up: Emergency Department; When: As needed; Reason: Worsening of condition. Follow up: Private Physician; When: 2 - 3 days; Reason: Recheck today's complaints, Continuance of care, Re-evaluation by your physician. Signatures: Viki Ballard, SQL DEVELOPER DBA-C SQL DEVELOPER DBA-Csnw Cedrick Jones, RN RN rv Eduardo White RN RN ll1 Dinh Brown MD MD [email or web address] Corrections: (The following items were deleted from the chart) 06/24 23:20 23:02 06/25/2019 23:02 Discharged to Home. Impression: Cutaneous abscess of face. rv Condition is Stable. Forms are Medication Reconciliation Form, Thank You Letter, Antibiotic Education, Prescription Opioid Use. Follow up: Emergency Department; When: As needed; Reason: Worsening of condition. Follow up: Private Physician; When: 2 - 3 days; Reason: Recheck today's complaints, Continuance of care, Re-evaluation by your physician. snw
--- NOTE | 2019-06-25 23:03 | ER ---
Nurse's Notes [facility] Name: Marielle Jones Age: 28 yrs Sex: Female : 1990 Arrival Date: 06/25/2019 Time: 22:55 Bed 5 Private MD: Diagnosis: Cutaneous abscess of face Presentation: 06/24 23:02 Ebola Screen: No symptoms or risks identified at this time. Initial Sepsis Screen: Does rv the patient meet any 2 criteria? No. Patient's initial sepsis screen is negative. Does the patient have a suspected source of infection? No. Patient's initial sepsis screen is negative. Risk Assessment: Do you want to hurt yourself or someone else? Patient reports no desire to harm self or others. 23:02 Acuity: CODY 4 rv 23:04 Chief complaint: Patient states: Abscess to left cheek for 2 days. No fever, no ll1 drainage. Coronavirus screen: Proceed with normal triage. Patient denies a cough. Patient denies shortness of breath or difficulty breathing. Patient denies measured and/or subjective temperature greater than 100.4F prior to today's visit. Patient denies travel on a cruise ship or to a country the [facility] currently lists as an affected area. Patient denies contact with known and/or suspected case of COVID-19. Ebola Screen: Patient denies travel to an Ebola-affected area in the 21 days before illness onset. No symptoms or risks identified at this time. Onset of symptoms was June 24, 2019. 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 - Social history:: Smoking status: Patient denies any tobacco usage or history of. Patient/guardian denies using alcohol, street drugs, tobacco products. Screenin:01 Abuse screen: Denies threats or abuse. Denies injuries from another. Nutritional rv screening: No deficits noted. Tuberculosis screening: No symptoms or risk factors identified. Fall Risk None identified. Assessment: 23:00 General: Appears comfortable, Behavior is calm, cooperative. Pain: Complains of pain in rv left cheek Pain currently is 8 out of 10 on a pain scale. Neuro: Level of Consciousness is awake, alert, obeys commands, Oriented to person, place, time, situation. Cardiovascular: Patient's skin is warm and dry. Respiratory: Airway is patent. Derm: Skin is intact, Abscess located on left cheek. Vital Signs: 23:04 BP 110 / 85; Pulse 80; Resp 17; Temp 98.7; Pulse Ox 100% ; Pain 8/10; ll1 ED Course: 22:55 Patient arrived in ED. cl3 22:55 Cedrick Jones, RN is Primary Nurse. rv 22:58 Viki Ballard FNP-C [facility]. snw 22:58 Dinh Brown MD is Attending Physician. snw 23:01 Patient has correct armband on for positive identification. Bed in low position. Call rv light in reach. Pulse ox on. NIBP on. 23:01 No provider procedures requiring assistance completed. Patient did not have IV access rv during this emergency room visit. 23:02 Triage completed. rv 23:20 Patient placed Patient notified of wait time. rv Administered Medications: 23:10 Drug: Doxycycline 100 mg Route: PO; rv 23:19 Follow up: Response: No adverse reaction rv 23:10 Drug: TORadol 30 mg Route: IM; Site: right deltoid; rv 23:19 Follow up: Response: No adverse reaction rv Outcome: 23:02 Discharge ordered by . snw 23:19 Discharged to home ambulatory. rv 23:19 Condition: good 23:19 Discharge instructions given to patient, Instructed on discharge instructions, follow up and referral plans. medication usage, Demonstrated understanding of instructions, follow-up care, medications, Prescriptions given X 2. 23:20 Patient left the ED. rv Signatures: Viki Ballard FNP-C WATCH BAND ASSEMBLER-Csnw Cedrick Jones, RN RN rv Eduin White cl3 Eduardo White RN RN ll1
[2019-06-25] MEDS ORDERED: KETOROLAC 30 MG/ML INJ ONE (23:11)
[2019-06-25] MEDS ORDERED: DOXYCYCLINE 100 MG CAP PO ONE (23:11)
[2019-06-25 23:26] VITALS: BP 110/85; TEMP 98.7; O2SAT 100
== END 2019-06-25 23:20 | disposition home or self-care (01) ==
LOC: ER 22:53
DX: L02.01 Cutaneous abscess of face (principal)
CPT/HCPCS: 96372; 99283

== ENCOUNTER 2019-06-28 15:29 | Emergency (ER) | payer SELFPAY ==
--- OUTSIDE RECORDS SUMMARY | 2019-06-28 15:32 | XMS REPORT | Clinical Summary ---
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
[2019-06-28] MEDS ORDERED: LIDOCAINE 1% W/EPI 1:100,000 MDV 20 ML VIAL ONE (16:10)
--- NOTE | 2019-06-28 16:23 | EDPHYS ---
Physician Documentation [facility] Name: Marielle Jones Age: 28 yrs Sex: Female : 1990 Arrival Date: 06/28/2019 Time: 15:30 Bed 6 Private MD: ED Physician Isaac Blakely HPI: 06/27 16:16 This 28 yrs old Black Female presents to ER via Ambulatory with complaints of Abscess - ma2 cheek. 16:16 The patient presents with an abscess of the face. Description: The affected area is ma2 small, fluctuant. Onset: The symptoms/episode began/occurred gradually, 2 day(s) ago. Associated signs and symptoms: Pertinent negatives: erythema, foreign body sensation, nausea, shortness of breath. Severity of symptoms: At their worst the symptoms were mild, moderate, in the emergency department the symptoms are unchanged. The patient has not experienced similar symptoms in the past. 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 - Social history:: Smoking status: Patient denies any tobacco usage or history of. Patient/guardian denies using alcohol, street drugs, The patient lives with family. - Family history:: not pertinent. ROS: 16:16 Constitutional: Negative for fever, chills, and weight loss. ma2 16:16 All other systems are negative. Exam: 16:16 Constitutional: This is a well developed, well nourished patient who is awake, alert, ma2 and in no acute distress. Head/Face: 2x2 cm abscess with fluctuance, mild cellulitis. Normocephalic, atraumatic. Neck: Trachea midline, no thyromegaly or masses palpated, and no cervical lymphadenopathy. Supple, full range of motion without nuchal rigidity, or vertebral point tenderness. No Meningismus. Chest/axilla: Normal chest wall appearance and motion. Nontender with no deformity. No lesions are appreciated. Cardiovascular: Regular rate and rhythm with a normal S1 and S2. No gallops, murmurs, or rubs. Normal PMI, no JVD. No pulse deficits. Respiratory: Lungs have equal breath sounds bilaterally, clear to auscultation and percussion. No rales, rhonchi or wheezes noted. No increased work of breathing, no retractions or nasal flaring. Abdomen/GI: Soft, non-tender, with normal bowel sounds. No distension or tympany. No guarding or rebound. No evidence of tenderness throughout. MS/ Extremity: Pulses equal, no cyanosis. Neurovascular intact. Full, normal range of motion. Neuro: Awake and alert, GCS 15, oriented to person, place, time, and situation. Cranial nerves II-XII grossly intact. Motor strength 5/5 in all extremities. Sensory grossly intact. Cerebellar exam normal. Normal gait. Vital Signs: 15:37 BP 115 / 74; Pulse 90; Resp 18; Temp 98.3; Pulse Ox 100% on R/A; Weight 54.43 kg; em Height 5 ft. 3 in. (160.02 cm); Pain 8/10; 15:37 Body Mass Index 21.26 (54.43 kg, 160.02 cm) em Procedures: 16:16 I \T\ D: Incision and drainage was performed for an abscess of the left Prepped with ma2 Betadine, Anesthetized with 5 ml's 1% Lidocaine w/ Epi. Incised with Drained large amount purulent fluid. Packed with sterile gauze, Dressing: the patient tolerated the procedure well. MDM: 15:35 Patient medically screened. snw 16:16 Differential diagnosis: abscess, allergic reaction, cellulitis, insect bite. Data ma2 reviewed: vital signs, nurses notes. Counseling: I had a detailed discussion with the patient and/or guardian regarding: the historical points, exam findings, and any diagnostic results supporting the discharge/admit diagnosis, the presence of at least one elevated blood pressure reading (>120/80) during this emergency department visit, the need for outpatient follow up. Response to treatment: the patient's symptoms have resolved after treatment. ED course: this is a recurrent abscess at same spot, she had i and d done before. i explained that she need to see archivist economic history or plastic surgeon for better result and less scar, however she states that she has no insurance and want this to be drained even if it leaves a scar. she understands risk. drained completely with needle aspiration. total of 5 ml puss drained. i explained possibility of recollection as well. . 06/27 16:03 Order name: I\T\D Setup; Complete Time: 16:03 tw2 06/27 16:21 Order name: Wound Care; Complete Time: 16:29 tw2 Administered Medications: 16:15 Drug: Lidocaine-Epinephrine -1%: (1:100,000) 20 ml {Note: by Zora.} Volume: 20 ml; tw2 Route: Infiltration; 16:30 Drug: Neosporin Ointment 1 application Route: Topical; Site: wound; tw2 Disposition: 06/28/19 16:22 Discharged to Home. Impression: Cutaneous abscess of face. - Condition is Stable. - Discharge Instructions: Skin Abscess. - Prescriptions for Bactrim DS 800- 160 mg Oral Tablet - take 1 tablet by ORAL route every 12 hours for 10 days; 20 tablet. Diclofenac Sodium 75 mg Oral Tablet Sustained Release - take 1 tablet by ORAL route 2 times per day; 30 tablet. - Medication Reconciliation Form, Thank You Letter, Antibiotic Education, Prescription Opioid Use form. - Follow up: Private Physician; When: Tomorrow; Reason: Continuance of care. Signatures: Viki Ballard, PARTS REMOVER-C PARTS REMOVER-Csnw Adriel Casas RN RN Ally Marin RN RN tw2 Isaac Blakely MD MD ma2 Corrections: (The following items were deleted from the chart) 16:30 16:22 06/28/2019 16:22 Discharged to Home. Impression: Cutaneous abscess of face. tw2 Condition is Stable. Forms are Medication Reconciliation Form, Thank You Letter, Antibiotic Education, Prescription Opioid Use. Follow up: Private Physician; When: Tomorrow; Reason: Continuance of care. ma2
--- NOTE | 2019-06-28 16:23 | ER ---
Nurse's Notes [facility] Name: Marielle Jones Age: 28 yrs Sex: Female : 1990 Arrival Date: 06/28/2019 Time: 15:30 Bed 6 Private MD: Diagnosis: Cutaneous abscess of face Presentation: 06/27 15:37 Chief complaint: Patient states: abscess on left cheek, was seen here 2 days ago and em given clindamycin, pt wants us to cut into it, has had this in the past, denies fever, cough or SOB, marble size abscess noted on left cheek. Coronavirus screen: Proceed with normal triage. Patient denies a cough. Patient denies shortness of breath or difficulty breathing. Patient denies measured and/or subjective temperature greater than 100.4F prior to today's visit. Patient denies travel on a cruise ship or to a country the [facility] currently lists as an affected area. Patient denies contact with known and/or suspected case of COVID-19. Ebola Screen: Patient negative for fever greater than or equal to 101.5 degrees Fahrenheit, and additional compatible Ebola Virus Disease symptoms Patient denies exposure to infectious person. Patient denies travel to an Ebola-affected area in the 21 days before illness onset. No symptoms or risks identified at this time. Initial Sepsis Screen: Does the patient meet any 2 criteria? No. Patient's initial sepsis screen is negative. Does the patient have a suspected source of infection? Yes: Skin breakdown/wound. Risk Assessment: Do you want to hurt yourself or someone else? Patient reports no desire to harm self or others. Onset of symptoms was June 16, 2019. 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 - Social history:: Smoking status: Patient denies any tobacco usage or history of. Patient/guardian denies using alcohol, street drugs, The patient lives with family. - Family history:: not pertinent. Screenin:00 Abuse screen: Denies threats or abuse. Nutritional screening: No deficits noted. tw2 Tuberculosis screening: No symptoms or risk factors identified. Fall Risk None identified. Assessment: 15:35 General: Appears in no apparent distress. well groomed, Behavior is appropriate for tw2 age. Pain: Complains of pain in left cheek. Neuro: Level of Consciousness is awake, alert, obeys commands, Oriented to person, place, time, situation. Cardiovascular: Patient's skin is warm and dry. Respiratory: Airway is patent Respiratory effort is even, unlabored, Respiratory pattern is regular. GI: No signs and/or symptoms were reported involving the gastrointestinal system. EENT: No signs and/or symptoms were reported regarding the EENT system. Derm: Abscess located on left cheek is nickel sized, has no drainage, is hot to touch, is raised, Reports "i had one before like down on my chin but this one just wont go away and it is starting to hurt". Musculoskeletal: Range of motion: intact in all extremities. 15:58 Reassessment: Patient appears in no apparent distress at this time. provider at bedside tw2 at this time. 16:30 Reassessment: Patient appears in no apparent distress at this time. Patient and/or tw2 family updated on plan of care and expected duration. Pain level reassessed. Patient is alert, oriented x 3, equal unlabored respirations, skin warm/dry/pink. Vital Signs: 15:37 BP 115 / 74; Pulse 90; Resp 18; Temp 98.3; Pulse Ox 100% on R/A; Weight 54.43 kg; em Height 5 ft. 3 in. (160.02 cm); Pain 8/10; 15:37 Body Mass Index 21.26 (54.43 kg, 160.02 cm) em ED Course: 15:30 Patient arrived in ED. am2 15:31 Viki Ballard FNP-C is [facility]. snw 15:31 Isaac Blakely MD is Attending Physician. snw 15:32 Bed in low position. Call light in reach. Pulse ox on. NIBP on. tw2 15:39 Triage completed. em 15:40 Arm band placed on. em 15:52 Isaac Blakely MD is Attending Physician. ma2 16:02 Ally Marin, RN is Primary Nurse. tw2 16:29 Assist provider with I \\T\\ D: of an abscess on Set up I\\T\\D tray. Performed by Isaac tw 2 Zora CRENSHAW Dressing with Neosporin and 4X4s, tegaderm Patient tolerated well. Patient did not have IV access during this emergency room visit. Administered Medications: 16:15 Drug: Lidocaine-Epinephrine -1%: (1:100,000) 20 ml {Note: by Zora.} Volume: 20 ml; tw2 Route: Infiltration; 16:30 Drug: Neosporin Ointment 1 application Route: Topical; Site: wound; tw2 Outcome: 16:22 Discharge ordered by . ma2 16:30 Discharged to home ambulatory. tw2 16:30 Condition: stable 16:30 Discharge instructions given to patient, Instructed on discharge instructions, follow up and referral plans. medication usage, wound care, Demonstrated understanding of instructions, follow-up care, medications, wound care, Prescriptions given X 2. 16:30 Patient left the ED. tw2 Signatures: Viki Ballard, CHILD CARE COORDINATOR-C CHILD CARE COORDINATOR-Csnw Adriel Casas, RN RN Ally Marin, DEISY RN tw2 Sarahi Jackson 2 Isaac Blakely MD MD [facility]
[2019-06-28 16:35] VITALS: BP 115/74; TEMP 98.3; O2SAT 100
== END 2019-06-28 16:30 | disposition home or self-care (01) ==
LOC: ER 15:29
PROC: 0J910ZZ Drainage of Face Subcutaneous Tissue and Fascia, Open Approach (ICD-10-PCS; principal; 2019-06-28)
DX: L02.01 Cutaneous abscess of face (principal)
CPT/HCPCS: 99284

== ENCOUNTER 2019-06-30 22:47 | Emergency (ER) | payer SELFPAY ==
--- OUTSIDE RECORDS SUMMARY | 2019-06-30 22:49 | XMS REPORT | Clinical Summary ---
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
[2019-06-30] MEDS ORDERED: LIDOCAINE 1% W/EPI 1:100,000 MDV 20 ML VIAL ONE (23:10)
--- NOTE | 2019-06-30 23:55 | EDPHYS ---
Physician Documentation [facility] Name: Marielle Jones Age: 28 yrs Sex: Female : 1990 Arrival Date: 06/30/2019 Time: 22:49 Bed 4 Private MD: ED Physician Cristhian Sims HPI: 06/29 23:05 This 28 yrs old Black Female presents to ER via Ambulatory with complaints of Abscess. cp 23:05 The patient presents with an abscess of the left facial cheek. Description: fluctuant. cp 23:05 Patient returns to ED requesting I\T\D of left facial cheek abscess. Currently taking cp clindamycin and has prescription for Bactrim. Patient reports having appt with dermatology in July 2019 but does not want to wait for the appt. Historical: - Allergies: 22:52 No Known Allergies; sg - Home Meds: 22:52 clindamycin HCl 300 mg Oral cap [Active]; sg - PMHx: 22:52 Asthma; sg - PSHx: 22:52 None; sg - Immunization history:: Adult Immunizations up to date. - Social history:: Smoking status: Patient denies any tobacco usage or history of. ROS: 23:10 Constitutional: Negative for body aches, chills, fever, poor PO intake. cp 23:10 Skin: Positive for abscess, of the left facial cheek. cp 23:10 All other systems are negative. Exam: 23:20 Constitutional: The patient appears in no acute distress, alert, awake, well developed, cp well nourished. 23:20 Head/face: Noted is swelling, that is mild, of the left cheek, tenderness, that is cp mild, of the left cheek. 23:20 Eyes: Periorbital structures: appear normal, Conjunctiva: normal, no exudate, no injection, Lids and lashes: appear normal, bilaterally. 23:20 Chest/axilla: Inspection: normal. 23:20 Cardiovascular: Rate: normal. 23:20 Respiratory: the patient does not display signs of respiratory distress, Respirations: normal. 23:20 Skin: abscess, that is small, of the left facial cheek, with fluctuance, that is mild. Vital Signs: 23:03 BP 131 / 78; Pulse 75; Resp 16; Temp 98.2; Pulse Ox 99% ; Weight 54.43 kg; Height 5 ft. rr5 3 in. (160.02 cm); Pain 10/10; 23:40 BP 115 / 70; Pulse 74; Resp 19; Pulse Ox 99% ; rr5 23:03 Body Mass Index 21.26 (54.43 kg, 160.02 cm) rr5 Procedures: 23:51 I \T\ D: Incision and drainage was performed for an abscess of the left facial cheek cp Prepped with Betadine, Anesthetized with 4 ml's 1% Lidocaine w/ Epi. Incised with #11 blade. Drained moderate amount purulent fluid. Packed with iodoform gauze, Dressing: sterile 4x4 gauze, the patient tolerated the procedure well. MDM: 22:54 Patient medically screened. ngoc 23:00 Differential diagnosis: abscess, cellulitis, insect bite, cyst. cp 23:53 Data reviewed: vital signs, nurses notes, I have discussed the patient's cp presentation/case with the attending Emergency Department Physician; and as a result, I will discharge patient. 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 Response to treatment: the patient's symptoms have markedly improved after treatment, and as a result, I will discharge patient. 06/29 23:08 Order name: I\T\D Setup; Complete Time: 00:06 cp Administered Medications: 23:32 Drug: Lidocaine-Epinephrine -1%: (1:100,000) 5 ml {Note: given by page PA.} Volume: 20 rr5 ml; Route: Infiltration; 06/30 00:00 Follow up: Response: No adverse reaction rr5 Disposition: 00:10 Chart complete. cp 09:11 Co-signature as Attending Physician, Cristhian Sims MD I agree with the assessment and [facility] plan of care. Disposition: 06/30/19 23:54 Discharged to Home. Impression: Cutaneous abscess of face - left cheek. - Condition is Stable. - Discharge Instructions: Skin Abscess, Incision and Drainage, Incision and Drainage, Care After. - Medication Reconciliation Form, Thank You Letter, Antibiotic Education, Prescription Opioid Use form. - Follow up: Private Physician; When: private cableway operator as scheduled; Reason: Wound Recheck, Worsening of condition. - Problem is an ongoing problem. - Symptoms have improved. Signatures: Cash Mckeon, RN RN Cristhian Smith MD MD cha Page, Corey, PA PA cp Roque, Raymond, RN RN rr5 Corrections: (The following items were deleted from the chart) 00:06 06/29 23:54 06/30/2019 23:54 Discharged to Home. Impression: Cutaneous abscess of face rr5 - left cheek. Condition is Stable. Forms are Medication Reconciliation Form, Thank You Letter, Antibiotic Education, Prescription Opioid Use. Follow up: Private Physician; When: private cableway operator as scheduled; Reason: Wound Recheck, Worsening of condition. Problem is an ongoing problem. Symptoms have improved. cp
--- NOTE | 2019-06-30 23:55 | ER ---
Nurse's Notes [facility] Name: Marielle Jones Age: 28 yrs Sex: Female : 1990 Arrival Date: 06/30/2019 Time: 22:49 Bed 4 Private MD: Diagnosis: Cutaneous abscess of face-left cheek Presentation: 06/29 22:50 Acuity: CODY 4 sg 22:50 Chief complaint: Chief complaint: Patient states: This abscess on my cheek appeared 5 sg days ago, has been treated with abx but just is not getting any better, painful still. 23:03 Coronavirus screen: Proceed with normal triage. Ebola Screen: Patient negative for sg fever greater than or equal to 101.5 degrees Fahrenheit, and additional compatible Ebola Virus Disease symptoms Patient denies exposure to infectious person. Patient denies travel to an Ebola-affected area in the 21 days before illness onset. No symptoms or risks identified at this time. Initial Sepsis Screen: Does the patient meet any 2 criteria? No. Patient's initial sepsis screen is negative. Does the patient have a suspected source of infection? Yes: Skin breakdown/wound. Risk Assessment: Do you want to hurt yourself or someone else? Patient reports no desire to harm self or others. Onset of symptoms was June 25, 2019. Care prior to arrival: None. 23:03 Method Of Arrival: Ambulatory sg Historical: - Allergies: 22:52 No Known Allergies; sg - Home Meds: 22:52 clindamycin HCl 300 mg Oral cap [Active]; sg - PMHx: 22:52 Asthma; sg - PSHx: 22:52 None; sg - Immunization history:: Adult Immunizations up to date. - Social history:: Smoking status: Patient denies any tobacco usage or history of. Screenin:09 Abuse screen: Denies threats or abuse. Denies injuries from another. Nutritional rr5 screening: No deficits noted. Tuberculosis screening: No symptoms or risk factors identified. Fall Risk None identified. Assessment: 23:10 General: Appears in no apparent distress. uncomfortable, Behavior is calm, cooperative, rr5 appropriate for age. Pain: Complains of pain in left cheek Pain does not radiate. Pain currently is 10 out of 10 on a pain scale. Quality of pain is described as aching, Pain began gradually, Is intermittent. Neuro: Level of Consciousness is awake, alert, obeys commands, Oriented to person, place, time, situation, Appropriate for age. Cardiovascular: Capillary refill < 3 seconds Patient's skin is warm and dry. Respiratory: Airway is patent Respiratory effort is even, unlabored, Respiratory pattern is regular, symmetrical. GI: No signs and/or symptoms were reported involving the gastrointestinal system. : No signs and/or symptoms were reported regarding the genitourinary system. EENT: No signs and/or symptoms were reported regarding the EENT system. Derm: Abscess located on left cheek is quarter sized, has no drainage, is hot to touch, is red, is raised. Musculoskeletal: Circulation, motion, and sensation intact. Capillary refill < 3 seconds. 06/30 00:00 Reassessment: Patient appears in no apparent distress at this time. Patient is alert, rr5 oriented x 3, equal unlabored respirations, skin warm/dry/pink. discharge instruction given and explained without complaints made. Vital Signs: 06/29 23:03 BP 131 / 78; Pulse 75; Resp 16; Temp 98.2; Pulse Ox 99% ; Weight 54.43 kg; Height 5 ft. rr5 3 in. (160.02 cm); Pain 10/10; 23:40 BP 115 / 70; Pulse 74; Resp 19; Pulse Ox 99% ; rr5 23:03 Body Mass Index 21.26 (54.43 kg, 160.02 cm) rr5 ED Course: 22:49 Patient arrived in ED. ds1 22:53 Triage completed. sg 22:53 Cristhian Hernandez PA is [facility]. cp 22:53 Cristhian Sims MD is Attending Physician. cp 22:56 Ramesh Villalobos RN is Primary Nurse. rr5 23:04 Arm band placed on. sg 23:11 Patient has correct armband on for positive identification. Bed in low position. Call rr5 light in reach. Pulse ox on. NIBP on. 23:40 Assist provider with I \T\ D: of an abscess on left left cheek Set up I\T\D tray. Performed rr 5 by Cristhian LIAO Wound packed. iodoform gauze, Dressing with 4X4s, Patient tolerated well. 23:40 Patient did not have IV access during this emergency room visit. rr5 Administered Medications: 23:32 Drug: Lidocaine-Epinephrine -1%: (1:100,000) 5 ml {Note: given by parris LIAO.} Volume: 20 rr5 ml; Route: Infiltration; 06/30 00:00 Follow up: Response: No adverse reaction rr5 Outcome: 06/29 23:54 Discharge ordered by MD. arroyo 06/30 00:00 Discharged to home ambulatory. rr5 Condition: stable Discharge instructions given to patient, Instructed on discharge instructions, follow up and referral plans. Demonstrated understanding of instructions, follow-up care. 00:06 Patient left the ED. rr5 Signatures: Cash Mckeon RN RN sg Amanda Brown ds1 Cristhian Hernandez PA PA cp Roque, Raymond RN RN rr5 Corrections: (The following items were deleted from the chart) 06/29 23:03 22:52 Acuity: CODY 3 sg sg 23:04 22:50 Chief complaint: sg sg
[2019-07-01 00:18] VITALS: BP 131/78; TEMP 98.2; O2SAT 99
== END 2019-07-01 00:06 | disposition home or self-care (01) ==
LOC: ER 22:47
PROC: 0J910ZZ Drainage of Face Subcutaneous Tissue and Fascia, Open Approach (ICD-10-PCS; principal; 2019-07-01)
DX: L02.01 Cutaneous abscess of face (principal)
CPT/HCPCS: 99283

== ENCOUNTER 2019-12-21 19:20 | Emergency (ER) | payer SELFPAY ==
--- OUTSIDE RECORDS SUMMARY | 2019-12-21 19:24 | XMS REPORT | Clinical Summary ---
:1990 Author Organization [facility] Address [address] [place] [address] Care Team Providers Name Role Phone Asked, No Pcp Primary Care Provider Unavailable Allergies No Known Active Allergies Medications No known medications Active Problems Not on file Social History Tobacco Use Types Packs/Day Years Used Date Never Smoker Smokeless Tobacco: Never Used Alcohol Use Drinks/Week oz/Week Comments Yes Sex Assigned at Date Recorded Not on file Last Filed Vital Signs Not on file Plan of Treatment Not on file Results Not on fileafter 12/20/2018 Advance Directives For more information, please contact: [phone] Type Date Recorded 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
--- NOTE | 2019-12-21 19:55 | ER ---
Nurse's Notes [facility] Name: Marielle Jones Age: 29 yrs Sex: Female : 1990 Arrival Date: 12/21/2019 Time: 19:22 Bed 6 Private MD: Diagnosis: Cystic acne Presentation: 12/20 19:24 Chief complaint: Patient states: "I have an abscess on my right cheek and I want to see jd3 if I can get it drained.". Coronavirus screen: At this time, the client does not indicate any symptoms associated with coronavirus-19. Ebola Screen: Patient negative for fever greater than or equal to 101.5 degrees Fahrenheit, and additional compatible Ebola Virus Disease symptoms. Initial Sepsis Screen: Does the patient meet any 2 criteria? No. Patient's initial sepsis screen is negative. Does the patient have a suspected source of infection? No. Patient's initial sepsis screen is negative. Risk Assessment: Do you want to hurt yourself or someone else? Patient reports no desire to harm self or others. Onset of symptoms was December 15, 2019. 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 - Social history:: Smoking status: Patient denies any tobacco usage or history of. Screenin:00 Abuse screen: Denies threats or abuse. Denies injuries from another. Nutritional mg2 screening: No deficits noted. 20:00 Tuberculosis screening: No symptoms or risk factors identified. Fall Risk None mg2 identified. Assessment: 20:00 General: Appears in no apparent distress. comfortable, Behavior is calm, cooperative. mg2 Pain: Complains of pain in right cheek. Derm: Abscess located on right cheek is nickel sized, is red, is raised. Vital Signs: 19:26 BP 114 / 71; Pulse 99; Resp 15 S; Temp 98.9(TE); Pulse Ox 98% on R/A; Weight 54.43 kg jd3 (R); Height 5 ft. 3 in. (160.02 cm) (R); Pain 10; 19:26 Body Mass Index 21.26 (54.43 kg, 160.02 cm) j ED Course: 19:22 Patient arrived in ED. am2 19:25 Triage completed. jd3 19:28 Arm band placed on. jd3 19:40 [facility] R[facility]C [facility]. snw 19:40 Jefferson Blair MD is Attending Physician. snw 19:41 Keanu Moody, RN is Primary Nurse. mg2 19:43 Cristhian Sims MD is Attending Physician. ngoc 20:00 Patient has correct armband on for positive identification. mg2 20:00 No provider procedures requiring assistance completed. Patient did not have IV access mg2 during this emergency room visit. Administered Medications: 20:07 Drug: TORadol 30 mg Route: IM; Site: right gluteus; mg2 20:10 Follow up: Response: No adverse reaction; Medication administered at discharge. mg2 20:07 Drug: Doxycycline 100 mg Route: PO; mg2 20:10 Follow up: Response: No adverse reaction; Medication administered at discharge. mg2 Outcome: 19:54 Discharge ordered by . snw 20:00 Discharged to home ambulatory. mg2 20:00 Condition: stable 20:00 Discharge instructions given to patient, Instructed on discharge instructions, follow up and referral plans. medication usage, Demonstrated understanding of instructions, follow-up care, medications, Prescriptions given X 2. 20:08 Patient left the ED. mg2 Signatures: Cristhian Sims MD MD cha Waters, Shelly, FNP-C GUIDANCE CONSULTANT-Csnw Sarahi Jackson am2 Vincenzo Guevara RN RN jd3 Keanu Moody, DEISY RN mg2
--- NOTE | 2019-12-21 19:55 | EDPHYS ---
Physician Documentation [facility] Name: Marielle Jones Age: 29 yrs Sex: Female : 1990 Arrival Date: 12/21/2019 Time: 19:22 Bed 6 Private MD: ED Physician Cristhian Sims HPI: 12/20 20:02 This 29 yrs old Black Female presents to ER via Ambulatory with complaints of Abscess. snw 20:02 the patient presents with a swollen area of the right cheek. Onset: The snw symptoms/episode began/occurred 4 day(s) ago, and became persistent. Associated signs and symptoms: Pertinent positives: itching. Severity of symptoms: At their worst the symptoms were moderate. The patient has experienced similar episodes in the past. It is unknown whether or not the patient has recently seen a physician. 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 - Social history:: Smoking status: Patient denies any tobacco usage or history of. ROS: 19:57 Constitutional: Negative for fever, chills, and weight loss, Eyes: Negative for injury, snw pain, redness, and discharge, ENT: Negative for injury, pain, and discharge, Neck: Negative for injury, pain, and swelling, Cardiovascular: Negative for chest pain, palpitations, and edema, Respiratory: Negative for shortness of breath, cough, wheezing, and pleuritic chest pain, Abdomen/GI: Negative for abdominal pain, nausea, vomiting, diarrhea, and constipation, Back: Negative for injury and pain, : Negative for injury, bleeding, discharge, and swelling, MS/Extremity: Negative for injury and deformity, Neuro: Negative for headache, weakness, numbness, tingling, and seizure, Psych: Negative for depression, anxiety, suicide ideation, homicidal ideation, and hallucinations. 19:57 Skin: Positive for Exam: 19:56 Constitutional: This is a well developed, well nourished patient who is awake, alert, snw and in no acute distress. Eyes: Pupils equal round and reactive to light, extra-ocular motions intact. Lids and lashes normal. Conjunctiva and sclera are non-icteric and not injected. Cornea within normal limits. Periorbital areas with no swelling, redness, or edema. ENT: Nares patent. No nasal discharge, no septal abnormalities noted. Tympanic membranes are normal and external auditory canals are clear. Oropharynx with no redness, swelling, or masses, exudates, or evidence of obstruction, uvula midline. Mucous membranes moist. Neck: Trachea midline, no thyromegaly or masses palpated, and no cervical lymphadenopathy. Supple, full range of motion without nuchal rigidity, or vertebral point tenderness. No Meningismus. Chest/axilla: Normal chest wall appearance and motion. Nontender with no deformity. No lesions are appreciated. Cardiovascular: Regular rate and rhythm with a normal S1 and S2. No gallops, murmurs, or rubs. Normal PMI, no JVD. No pulse deficits. Respiratory: Lungs have equal breath sounds bilaterally, clear to auscultation and percussion. No rales, rhonchi or wheezes noted. No increased work of breathing, no retractions or nasal flaring. Abdomen/GI: Soft, non-tender, with normal bowel sounds. No distension or tympany. No guarding or rebound. No evidence of tenderness throughout. Back: No spinal tenderness. No costovertebral tenderness. Full range of motion. Skin: Warm, dry with normal turgor. Normal color with no rashes, no lesions, and no evidence of cellulitis. MS/ Extremity: Pulses equal, no cyanosis. Neurovascular intact. Full, normal range of motion. Neuro: Awake and alert, GCS 15, oriented to person, place, time, and situation. Cranial nerves II-XII grossly intact. Motor strength 5/5 in all extremities. Sensory grossly intact. Cerebellar exam normal. Normal gait. Psych: Awake, alert, with orientation to person, place and time. Behavior, mood, and affect are within normal limits. 19:56 Head/face: Noted is swelling, tenderness, that is mild, of the right cheek, of the cystic acne, puncture wound made and thick exudate expressed.. Vital Signs: 19:26 BP 114 / 71; Pulse 99; Resp 15 S; Temp 98.9(TE); Pulse Ox 98% on R/A; Weight 54.43 kg jd3 (R); Height 5 ft. 3 in. (160.02 cm) (R); Pain 02/24; 19:26 Body Mass Index 21.26 (54.43 kg, 160.02 cm) jd3 MDM: 19:43 Patient medically screened. [facility] 20:01 Data reviewed: vital signs, nurses notes. Data interpreted: Pulse oximetry: on room air snw is 98 %. Interpretation: normal. Counseling: I had a detailed discussion with the patient and/or guardian regarding: the historical points, exam findings, and any diagnostic results supporting the discharge/admit diagnosis, lab results. Physician consultation: Davis Loja MD was called at 20:02, regarding patient's condition, would like consultation with Dr. HIGHTOWER - Dr. Cummings. Administered Medications: 20:07 Drug: TORadol 30 mg Route: IM; Site: right gluteus; mg2 20:10 Follow up: Response: No adverse reaction; Medication administered at discharge. mg2 20:07 Drug: Doxycycline 100 mg Route: PO; mg2 20:10 Follow up: Response: No adverse reaction; Medication administered at discharge. mg2 Disposition: 12/21 07:09 Co-signature as Attending Physician, Cristhian Sims MD I agree with the assessment and [facility] plan of care. Disposition: 12/21/19 19:54 Discharged to Home. Impression: Cystic acne. - Condition is Stable. - Discharge Instructions: Epidermal Cyst, Rehydration, Adult, Heat Therapy. - Prescriptions for Mobic 7.5 mg Oral Tablet - take 1 tablet by ORAL route once daily take with food; 20 tablet. Doxycycline Hyclate 100 mg Oral Tablet - take 1 tablet by ORAL route every 12 hours; 20 tablet. - Medication Reconciliation Form, Thank You Letter, Antibiotic Education, Prescription Opioid Use form. - Follow up: Emergency Department; When: As needed; Reason: Worsening of condition. Follow up: Private Physician; When: 2 - 3 days; Reason: Recheck today's complaints, Continuance of care, Re-evaluation by your physician. Signatures: Cristhian Sims MD MD cha Waters, Shelly, CLINICAL SUPPORT MANAGER-C CLINICAL SUPPORT MANAGER-Edgarw Vincenzo Guevara RN RN jd3 Keanu Moody RN RN mg2 Corrections: (The following items were deleted from the chart) 12/20 20:08 19:54 12/21/2019 19:54 Discharged to Home. Impression: Cystic acne. Condition is mg2 Stable. Forms are Medication Reconciliation Form, Thank You Letter, Antibiotic Education, Prescription Opioid Use. Follow up: Emergency Department; When: As needed; Reason: Worsening of condition. Follow up: Private Physician; When: 2 - 3 days; Reason: Recheck today's complaints, Continuance of care, Re-evaluation by your physician. snw
[2019-12-21] MEDS ORDERED: KETOROLAC 30 MG/ML INJ ONE (20:17)
[2019-12-21] MEDS ORDERED: DOXYCYCLINE 100 MG CAP PO ONE (20:17)
[2019-12-21 23:50] VITALS: BP 114/71; TEMP 98.9; O2SAT 98
== END 2019-12-21 20:08 | disposition home or self-care (01) ==
LOC: ER 19:20
DX: L70.0 Acne vulgaris (principal)
CPT/HCPCS: 96372; 99283

== ENCOUNTER 2019-12-26 09:06 | Emergency (ER) | payer SELFPAY ==
--- OUTSIDE RECORDS SUMMARY | 2019-12-26 09:40 | XMS REPORT | Clinical Summary ---
:1990 Author Organization [facility] [employer] Address [address] [place] [address] Care Team Providers Name Role Phone Asked, [...] Not on file Results Not on fileafter 12/25/2018 Advance Directives For more information, please contact: [phone] Type Date Recorded Patient Director Emergency Explanati on Advance Directives, 09/18/2018 7:58 PM Living Will and Medical Power of Joy Operator Advance Directives, 11/02/2016 10:02 PM Living Will and Medical Power of Joy Operator
[2019-12-26] MEDS ORDERED: LIDOCAINE 2% MPF 5 ML VIAL ONE (10:34)
--- NOTE | 2019-12-26 10:55 | ER ---
Nurse's Notes [facility] Name: Marielle Jones Age: 29 yrs Sex: Female : 1990 Arrival Date: 12/26/2019 Time: 09:07 Bed 17 Private MD: Diagnosis: Cutaneous abscess of face Presentation: 12/25 09:15 Chief complaint: Patient states: "I have a pimple on my right cheek and it's getting aa5 bigger, I was just seen here a few days ago and I am taking doxycycline". 09:15 Acuity: CODY 4 aa5 09:15 Initial Sepsis Screen: Does the patient meet any 2 criteria? No. Patient's initial ll2 sepsis screen is negative. Does the patient have a suspected source of infection? No. Patient's initial sepsis screen is negative. 09:15 Method Of Arrival: Ambulatory ll2 09:15 Coronavirus screen: Client denies travel out of the [place] in the last 14 days. At this ll2 time, the client does not indicate any symptoms associated with coronavirus-19. Ebola Screen: Patient negative for fever greater than or equal to 101.5 degrees Fahrenheit, and additional compatible Ebola Virus Disease symptoms. Risk Assessment: Do you want to hurt yourself or someone else? Patient reports no desire to harm self or others. Onset of symptoms was December 19, 2019. 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 - Social history:: Patient/guardian denies using alcohol, street drugs, tobacco products, Smoking status: Patient denies any tobacco usage or history of. - Family history:: not pertinent. Screenin:53 Abuse screen: Denies threats or abuse. Nutritional screening: No deficits noted. ll2 Tuberculosis screening: No symptoms or risk factors identified. Fall Risk None identified. Assessment: 09:40 General: Appears in no apparent distress. Behavior is calm, cooperative, appropriate ll2 for age. Pain: Complains of pain in right cheek. Neuro: Level of Consciousness is awake, alert, obeys commands, Oriented to person, place, time, situation. Cardiovascular: Patient's skin is warm and dry. Respiratory: Airway is patent Respiratory effort is even, unlabored, Respiratory pattern is regular, symmetrical. GI: No signs and/or symptoms were reported involving the gastrointestinal system. : No signs and/or symptoms were reported regarding the genitourinary system. EENT: No signs and/or symptoms were reported regarding the EENT system. Derm: Abscess located on right cheek. Musculoskeletal: Circulation, motion, and sensation intact. Range of motion: intact in all extremities. 10:26 Reassessment: Awaiting provider assessment, pt updated. ll2 Vital Signs: 09:16 BP 117 / 75; Pulse 85; Resp 16 S; Temp 98.2(O); Pulse Ox 99% on R/A; aa5 ED Course: 09:07 Patient arrived in ED. ag5 09:15 Arm band placed on Patient placed in an exam room, on a stretcher. aa5 09:15 Patient has correct armband on for positive identification. Bed in low position. Call ll2 light in reach. Side rails up X 1. Pulse ox on. NIBP on. 09:38 Cristhian Sims MD is Attending Physician. ngoc 09:42 Caitlin Garcia, DEISY is Primary Nurse. ll2 09:44 Triage completed. aa5 10:54 Quinn Starr MD is Referral Physician. ngoc Administered Medications: 11:18 Drug: Bactrim (160 mg-800 mg (DS) 1 tablet Route: PO; ll2 11:19 Follow up: Response: Medication administered at discharge. ll2 11:19 Drug: Bactroban Ointment 2 % 1 application Route: Topical; Site: face; ll2 11:19 Follow up: Response: Medication administered at discharge. ll2 Outcome: 10:55 Discharge ordered by . [facility] 11:31 Patient left the ED. em1 Signatures: Cristhian Sims MD MD cha Martinez, Eric em1 Maria Guadalupe Lovelace, RN RN [facility] Lisbeth Roland [facility] Caitlin Garcia, DEISY RN ll2
--- NOTE | 2019-12-26 10:55 | EDPHYS ---
Physician Documentation [facility] Name: Marielle Jones Age: 29 yrs Sex: Female : 1990 Arrival Date: 12/26/2019 Time: 09:07 Bed 17 Private MD: AMEYA Physician Cristhian Sims HPI: 12/25 10:43 This 29 yrs old Black Female presents to ER via Ambulatory with complaints of Abscess. ngoc 10:43 The patient presents with an abscess of the right cheek, The patient presents with ngoc cellulitis of the right cheek. Description: The affected area is small, confluent, erythematous. Onset: The symptoms/episode began/occurred 5 day(s) ago. Possible cause(s): unknown. Associated signs and symptoms: The patient has no apparent associated signs or symptoms. Modifying factors: the symptoms are alleviated by nothing, the symptoms are aggravated by pressure, squeezing the lesion and expressing the contents, touching. Severity of symptoms: At their worst the symptoms were mild, in the emergency department the symptoms are unchanged. The patient has experienced similar episodes in the past, several times. 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 - Social history:: Patient/guardian denies using alcohol, street drugs, tobacco products, Smoking status: Patient denies any tobacco usage or history of. - Family history:: not pertinent. ROS: 10:43 Constitutional: Negative for fever, chills, and weight loss, Eyes: Negative for injury, ngoc pain, redness, and discharge, ENT: Negative for injury, pain, and discharge, Neck: Negative for injury, pain, and swelling, Cardiovascular: Negative for chest pain, palpitations, and edema, Respiratory: Negative for shortness of breath, cough, wheezing, and pleuritic chest pain, Abdomen/GI: Negative for abdominal pain, nausea, vomiting, diarrhea, and constipation, Back: Negative for injury and pain, : Negative for injury, bleeding, discharge, and swelling, MS/Extremity: Negative for injury and deformity, Neuro: Negative for headache, weakness, numbness, tingling, and seizure, Psych: Negative for depression, anxiety, suicide ideation, homicidal ideation, and hallucinations, Allergy/Immunology: Negative for hives, rash, and allergies, Endocrine: Negative for neck swelling, polydipsia, polyuria, polyphagia, and marked weight changes, Hematologic/Lymphatic: Negative for swollen nodes, abnormal bleeding, and unusual bruising. 10:43 Skin: Positive for swelling, of the right cheek. Exam: 10:43 Constitutional: This is a well developed, well nourished patient who is awake, alert, ngoc and in no acute distress. Head/Face: Normocephalic, atraumatic. Eyes: Pupils equal round and reactive to light, extra-ocular motions intact. Lids and lashes normal. Conjunctiva and sclera are non-icteric and not injected. Cornea within normal limits. Periorbital areas with no swelling, redness, or edema. ENT: Nares patent. No nasal discharge, no septal abnormalities noted. Tympanic membranes are normal and external auditory canals are clear. Oropharynx with no redness, swelling, or masses, exudates, or evidence of obstruction, uvula midline. Mucous membranes moist. Neck: Trachea midline, no thyromegaly or masses palpated, and no cervical lymphadenopathy. Supple, full range of motion without nuchal rigidity, or vertebral point tenderness. No Meningismus. Chest/axilla: Normal chest wall appearance and motion. Nontender with no deformity. No lesions are appreciated. Cardiovascular: Regular rate and rhythm with a normal S1 and S2. No gallops, murmurs, or rubs. Normal PMI, no JVD. No pulse deficits. Respiratory: Lungs have equal breath sounds bilaterally, clear to auscultation and percussion. No rales, rhonchi or wheezes noted. No increased work of breathing, no retractions or nasal flaring. Abdomen/GI: Soft, non-tender, with normal bowel sounds. No distension or tympany. No guarding or rebound. No evidence of tenderness throughout. Back: No spinal tenderness. No costovertebral tenderness. Full range of motion. MS/ Extremity: Pulses equal, no cyanosis. Neurovascular intact. Full, normal range of motion. Neuro: Awake and alert, GCS 15, oriented to person, place, time, and situation. Cranial nerves II-XII grossly intact. Motor strength 5/5 in all extremities. Sensory grossly intact. Cerebellar exam normal. Normal gait. 10:43 Skin: abscess, that is small, cellulitis, that is minimal, induration, that is mild is noted. Vital Signs: 09:16 BP 117 / 75; Pulse 85; Resp 16 S; Temp 98.2(O); Pulse Ox 99% on R/A; aa5 MDM: 09:38 Patient medically screened. ngoc Administered Medications: 11:18 Drug: Bactrim (160 mg-800 mg (DS) 1 tablet Route: PO; ll2 11:19 Follow up: Response: Medication administered at discharge. ll2 11:19 Drug: Bactroban Ointment 2 % 1 application Route: Topical; Site: face; ll2 11:19 Follow up: Response: Medication administered at discharge. ll2 Disposition: 12/26/19 10:55 Discharged to Home. Impression: Cutaneous abscess of face. - Condition is Stable. - Discharge Instructions: Skin Abscess, Skin Abscess, [id number]. - Prescriptions for Bactroban 2 % Topical Ointment - Apply to affected area 1 application by TOPICAL route every 12 hours; 15 gram. Doxycycline Hyclate 100 mg Oral Tablet - take 1 tablet by ORAL route every 12 hours; 20 tablet. Bactrim DS 800- 160 mg Oral Tablet - take 1 tablet by ORAL route every 12 hours for 10 days; 20 tablet. - Medication Reconciliation Form, Thank You Letter, Antibiotic Education, Prescription Opioid Use, Work release form form. - Follow up: Private Physician; When: 2 - 3 days; Reason: Recheck today's complaints, Continuance of care, Re-evaluation by your physician. Follow up: Quinn Starr MD; When: 2 - 3 days; Reason: Recheck today's complaints, Continuance of care, Re-evaluation by your physician. - Problem is new. - Symptoms have improved. Signatures: Cristhian Sims MD MD cha Martinez, Eric em1 Maria Guadalupe Lovelace, RN RN aa5 Caitlin Garcia, DEISY RN ll2 Corrections: (The following items were deleted from the chart) 11:31 10:55 12/26/2019 10:55 Discharged to Home. Impression: Cutaneous abscess of face. em1 Condition is Stable. Forms are Medication Reconciliation Form, Thank You Letter, Antibiotic Education, Prescription Opioid Use. Follow up: Private Physician; When: 2 - 3 days; Reason: Recheck today's complaints, Continuance of care, Re-evaluation by your physician. Follow up: Quinn Starr; When: 2 - 3 days; Reason: Recheck today's complaints, Continuance of care, Re-evaluation by your physician. Problem is new. Symptoms have improved. ngoc
[2019-12-26] MEDS ORDERED: MUPIROCIN 2% OINT 22GM TUBE TOP ONE (11:24)
[2019-12-26] MEDS ORDERED: SMZ./TMP. 800/160 MG TABLET ONE (11:24)
[2019-12-26 12:30] VITALS: BP 117/75; TEMP 98.2; O2SAT 99
== END 2019-12-26 11:31 | disposition home or self-care (01) ==
LOC: ER 09:06
DX: L02.01 Cutaneous abscess of face (principal)
CPT/HCPCS: 99283

== ENCOUNTER 2020-02-29 17:44 | Emergency (ER) | payer SELFPAY ==
--- OUTSIDE RECORDS SUMMARY | 2020-02-29 17:47 | XMS REPORT | Clinical Summary ---
:1990 Author Organization [facility] Address [address] [place] [id number] Care Team Providers Name Role Phone Asked, No Pcp Primary Care Provider Unavailable Allergies No Known Active Allergies Medications No known medications Active Problems Not on file Encounters Date Type Specialty Care Team Description 12/26/2019 Emergency Emergency Medicine Srinivasan Mabry MD Ab scess of face (Primary Dx) 12/26/2019 Travel after 02/28/2019 Social History Tobacco Use Types Packs/Day Years Used Date Never Smoker Smokeless Tobacco: Never Used Alcohol Use Drinks/Week oz/Week Comments Yes Sex Assigned at Date Recorded Not on file Last Filed Vital Signs Vital Sign Reading Time Taken Comments Blood Pressure 109/57 12/26/2019 8: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 Pulse 90 12/26/2019 8: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 Temperature 37.3 C (99.2 F) 12/26/2019 6:08 PM 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 Respiratory Rate 16 12/26/2019 8: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
--- OUTSIDE RECORDS SUMMARY | 2020-02-29 17:47 | XMS REPORT | Continuity of Care Document ---
:1990 Author Organization [facility] t Address [address] [place] [address] Care Team Providers Name Role Phone Asked, Pcp Primary Care Physician Unavailable Frank Mabry MD. Attending Clinician Problems This patient has no known problems. Allergies, Adverse Reactions, Alerts This patient has no known allergies or adverse reactions. Social History Social Habit Start Date Stop Date Quantity Comments Source Sex Assigned At [facility] ethodist Tobacco use and 2019-12-26 2019-12-26 Never used [facility] ethodist exposure 00:00:00 00:00:00 Alcohol intake 2019-12-26 2019-12-26 Current drinker [place] 00:00:00 00:00:00 of alcohol (finding) Smoking Status Start Date Stop Date Source Never smoker [place] [facility] Medications This patient has no known medications. Vital Signs Vital Name Observation Time Observation Value Comments Source Systolic blood 2019-12-26 20:26:00 109 mm[Hg] [place] pressure Diastolic blood 2019-12-26 20:26:00 57 mm[Hg] [place] pressure Heart rate 2019-12-26 20:26:00 90 /min [place] Respiratory rate 2019-12-26 20:26:00 16 /min [place] Oxygen saturation in 2019-12-26 20:26:00 100 /min [place] Arterial blood by Pulse oximetry Body temperature 2019-12-26 18:08:38 37.33 [place] Procedures This patient has no known procedures. Encounters Start End Encounter Admission Attending Care Care Encounter Source Date/Time Date/Time Type Type Clinicians Facility Department ID 2019-12-26 2019-12-26 [facility] [id number] [place] 00:00:00 00:00:00 SUSAN [address] Results This patient has no known results.
[2020-02-29 19:21] LABS: Urine Blood TRACE (NEG); Urine Glucose NEGATIVE (NEG); Urine Protein 1+ (NEG); Urine Specific Gravity 1.025 (1.005-1.030)
--- NOTE | 2020-02-29 21:36 | ER ---
Nurse's Notes [facility] Name: Marielle Jones Age: 29 yrs Sex: Female : 1990 Arrival Date: 02/29/2020 Time: 17:46 Bed Waiting Private MD: Diagnosis: Presentation: 02/28 18:14 Chief complaint: Patient states: Burning with urination, urinary urgency and frequency, ca1 vaginal itching, suprapubic pain x 2 days. Denies fever. Reports being . Coronavirus screen: Client denies travel out of the [place] in the last 14 days. At this time, the client does not indicate any symptoms associated with coronavirus-19. Ebola Screen: Patient negative for fever greater than or equal to 101.5 degrees Fahrenheit, and additional compatible Ebola Virus Disease symptoms Patient denies exposure to infectious person. Patient denies travel to an Ebola-affected area in the 21 days before illness onset. No symptoms or risks identified at this time. Initial Sepsis Screen: Does the patient meet any 2 criteria? No. Patient's initial sepsis screen is negative. Does the patient have a suspected source of infection? No. Patient's initial sepsis screen is negative. Risk Assessment: Do you want to hurt yourself or someone else? Patient reports no desire to harm self or others. Onset of symptoms was February 29, 2020. 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 - Social history:: Smoking status: Patient denies any tobacco usage or history of. Assessment: 21:35 Reassessment: Sarahi for Registration states pt left about an hour ago. ca1 Vital Signs: 18:14 BP 106 / 75; Pulse 97; Resp 16 S; Temp 98(TE); Pulse Ox 100% on R/A; Weight 54.43 kg ca1 (R); Height 5 ft. 2 in. (157.48 cm) (R); Pain 4/10; 18:14 Body Mass Index 21.95 (54.43 kg, 157.48 cm) ca1 ED Course: 17:46 Patient arrived in ED. as 18:16 Triage completed. ca1 18:17 Arm band placed on right wrist. ca1 21:35 Patient's name was called from ER lobby. No response. Unable to locate patient. Will ca1 disposition as left without being seen by a provider. Administered Medications: No medications were administered Outcome: 21:35 Patient left the ED. ca1 Signatures: Margie Shelby Cheryl, RN RN ca1
[2020-02-29 21:41] VITALS: BP 106/75; TEMP 98; O2SAT 100
== END 2020-02-29 21:35 | disposition left against medical advice (07) ==
LOC: ER 17:44
DX: Z53.21 Procedure and treatment not carried out due to patient leaving prior to being seen by health care provider (principal)
CPT/HCPCS: 81003; 81025; 99281

== ENCOUNTER 2020-09-23 16:26 | Emergency (ER) | payer OTHER ==
--- OUTSIDE RECORDS SUMMARY | 2020-09-23 16:28 | XMS REPORT | Continuity of Care Document ---
:1990 Author Organization [facility] t Address [address] [place] [address] Care Team Providers Name Role Phone Asked, Pcp Primary Care Physician Unavailable Yohan Attending Clinician Unavailable Javid Mabry MD Attending Clinician Yohan Admitting Clinician Unavailable Payers Payer Name Policy Type Policy Number Effective Date Expiration Date S ource Problems This patient has no known problems. Allergies, Adverse Reactions, Alerts Allergy Allergy Status Severity Reaction(s) Onset Inactive Treating Comm ents Source Name Type Date Date Clinician No Known DA Active U 2014-02 [facility] 0[facility] [place] 00:[facility]: [address] Social History Social Habit Start Date Stop Date Quantity Comments Source Tobacco use and 2019-12-26 2019-12-26 Never used [facility] exposure 00:00:00 00:00:00 Hospital Alcohol intake 2019-12-26 2019-12-26 Current drinker [facility] 00:00:00 00:00:00 of alcohol Hospital (finding) Sex Assigned At [birth year] [facility] 00:00[facility]00 [facility]:00:00 Hospital Smoking Status Start Date Stop Date Source Never smoker [facility] Medications Ordered Filled Start Stop Current Ordering Indication Dosage Frequency Signature Comments Components Source Medication Medication Date Date Medication? Clinician (SIG) Name Name No known [facility] Vital Signs Vital Name Observation Time Observation Value Comments Source Systolic blood 2019-12-27 02:26:00 109 mm[Hg] [facility] pressure Diastolic blood 2019-12-27 02:26:00 57 mm[facility]Hg[facility] pressure Heart rate 2019-12-27 02:26:00 90 /min [facility] Respiratory rate 2019-12-27 02:26:00 16 /min [facility] Oxygen saturation in 2019-12-27 02:26:00 100 /min [facility] Arterial blood by Pulse oximetry Body temperature 2019-12-27 00:08:38 37.33 Kortney [facility] Procedures This patient has no known procedures. Encounters Start End Encounter Admission Attending Care Care Encounter Source Date/Time Date/Time Type Type Clinicians Facility Department ID 2020-08-18 2020-08-19 Emergency EM Yohan, AMARIWU EDIL [id number] [facility] 22:57:00 00:19:[id number] [facility] 2019-12-26 2019-12-26 Emergency Mabry, [id number] [facility] 19:03:00 20:32:[address] Susan BDaria [id number] [id number] Hospit a .[id number] l .8 2019-12-26 2019-12-26 Emergency MABRY, [facility] [id number] [place] 00:00:00 00:00:00 [address] 2019-12-26 2019-12-26 Travel [id number] [facility] 00:00:00 00:00:[id number] 3.430.2.7 [id number] Ho spita .[id number] 084.8 l .8 2016-09-29 2016-10-04 [facility] [id number] [place] 00:00:00 00:00:00 [facility] Results Test Description Test Time Test Comments Results Result Comments Source AMNISURE (ROM) TEST 2020-08-18 23:59:00 Test Item Value Reference Range Interpretation Comme nts AMNISURE (ROM) TEST (test code = AMNI) NON-RUPTURED NON-RUPTURE
--- NOTE | 2020-09-23 19:09 | RAD REPORT ---
EXAM DESCRIPTION: RAD - Forearm Left - 09/23/2020 6:27 pm CLINICAL HISTORY: PAIN COMPARISON: No comparisons FINDINGS: No left forearm fracture. No radiopaque foreign bodies. Visualized wrist and elbow are unr emarkable. IMPRESSION: Unremarkable left forearm.
--- NOTE | 2020-09-23 20:49 | ER ---
Nurse's Notes [facility] Name: Marielle Jones Age: 29 yrs Sex: Female : 1990 Arrival Date: 09/23/2020 Time: 16:51 Bed 9 Private MD: Diagnosis: Strain of distal left biceps tendon Presentation: 09/23 17:49 Chief complaint: Patient states: Left elbow and forearm pain x 2 days. Pt denies kg injuring it in anyway. Coronavirus screen: Client denies travel out of the [place] in the last 14 days. At this time, unable to obtain information related to travel outside the [place] At this time, the client does not indicate any symptoms associated with coronavirus-19. Ebola Screen: Patient negative for fever greater than or equal to 101.5 degrees Fahrenheit, and additional compatible Ebola Virus Disease symptoms Patient denies exposure to infectious person. Patient denies travel to an Ebola-affected area in the 21 days before illness onset. No symptoms or risks identified at this time. Initial Sepsis Screen: Does the patient meet any 2 criteria? No. Patient's initial sepsis screen is negative. Does the patient have a suspected source of infection? No. Patient's initial sepsis screen is negative. Risk Assessment: Do you want to hurt yourself or someone else? Patient reports no desire to harm self or others. Onset of symptoms was September 21, 2020. 17:49 Method Of Arrival: Ambulatory kg 17:49 Acuity: CODY 4 kg Triage Assessment: 17:51 General: Appears in no apparent distress. Behavior is calm, cooperative, appropriate kg for age, quiet. Pain: Complains of pain in Elbow, forearm Pain currently is 10 out of 10 on a pain scale. at worst was 10 out of 10 on a pain scale. level that patient reports is acceptable is 3 out of 10 on a pain scale. Quality of pain is described as aching, Throbbing. Musculoskeletal: Reports pain in Left elbow, Left forearm. 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 - Social history:: Smoking status: Patient denies any tobacco usage or history of. Screenin:54 Abuse screen: Denies threats or abuse. Denies injuries from another. Nutritional kg screening: No deficits noted. Tuberculosis screening: No symptoms or risk factors identified. Fall Risk None identified. Assessment: 19:40 General: Appears in no apparent distress. comfortable, Behavior is calm, cooperative. vg1 Pain: Complains of pain in left bicep and left antecubital area Pain currently is 8 out of 10 on a pain scale. Pain began about two weeks ago Noted to be guarding. Neuro: Level of Consciousness is awake, alert, obeys commands, Oriented to person, place, time, situation. Cardiovascular: Patient's skin is warm and dry. Respiratory: Airway is patent Respiratory effort is even, unlabored. GI: No signs and/or symptoms were reported involving the gastrointestinal system. : No signs and/or symptoms were reported regarding the genitourinary system. EENT: No signs and/or symptoms were reported regarding the EENT system. Derm: Skin is intact, is healthy with good turgor. Musculoskeletal: Circulation, motion, and sensation intact. Vital Signs: 17:49 BP 114 / 71; Pulse 86; Resp 20; Temp 97.7(TE); Pulse Ox 100% on R/A; Weight 60.33 kg kg (M); Height 5 ft. 3 in. (160.02 cm); Pain 10/10; 19:52 BP 110 / 71; Pulse 90; Resp 14; Pulse Ox 100% ; vg1 21:12 BP 112 / 73; Pulse 75; Resp 18; Pulse Ox 100% on R/A; kg 17:49 Body Mass Index 23.56 (60.33 kg, 160.02 cm) kg ED Course: 16:51 Patient arrived in ED. ds1 17:51 Triage completed. kg 17:54 Arm band placed on right wrist. kg 17:54 Patient has correct armband on for positive identification. kg 17:54 No provider procedures requiring assistance completed. kg 18:20 Forearm Left In Process Unspecified. EDMS 19:24 Juan Carias NP is PHCP. pm1 19:24 Rick Willard MD is Attending Physician. pm1 19:26 Mary Dotson, RN is Primary Nurse. vg1 20:55 UPPER EXTREMITY VENOUS UNILATE In Process Unspecified. EDMS 21:13 Patient did not have IV access during this emergency room visit. kg Administered Medications: No medications were administered Outcome: 20:49 Discharge ordered by . pm1 21:12 Discharged to home ambulatory. kg 21:12 Condition: good 21:12 Discharge instructions given to patient, Instructed on discharge instructions, follow up and referral plans. Demonstrated understanding of instructions, follow-up care, Sling 21:13 Patient left the ED. kg Signatures: Dispatcher [employer] EDVA Amanda Brown ds1 Juan Carias NP VICE PRESIDENT OF HUMAN RESOURCES pm1 Mary Dotson, RN RN vg1 Sharon Bean RN RN kg Corrections: (The following items were deleted from the chart) 17:52 17:51 PSHx: Unable to Obtain; kg kg
--- NOTE | 2020-09-23 20:50 | EDPHYS ---
Physician Documentation [facility] Name: Marielle Jones Age: 29 yrs Sex: Female : 1990 Arrival Date: 09/23/2020 Time: 16:51 Bed 9 Private MD: ED Physician Rick Willard HPI: 09/23 19:47 This 29 yrs old Black Female presents to ER via Ambulatory with complaints of Arm Pain. pm1 19:47 The patient or guardian complains of pain, that is acute. The complaints affect the pm1 left elbow and left forearm. Context: The problem was sustained at home, resulted from Patient reports possibly from sleeping wrong on it. Onset: The symptoms/episode began/occurred 2 day(s) ago. Treatment prior to arrival includes: no previous treatment. Modifying factors: The symptoms are alleviated by remaining still, the symptoms are aggravated by movement, Extending arm. Associated signs and symptoms: Pertinent positives: decreased range of motion, Due to pain, Pertinent negatives: fever, numbness, swelling, tingling. Severity of symptoms: in the emergency department the symptoms are unchanged. The patient has not experienced similar symptoms in the past. The patient has not recently seen a physician. Patient is 35 weeks . 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 - Social history:: Smoking status: Patient denies any tobacco usage or history of. ROS: 19:47 Constitutional: Negative for fever, chills, and weight loss, Cardiovascular: Negative pm1 for chest pain, palpitations, and edema, Respiratory: Negative for shortness of breath, cough, wheezing, and pleuritic chest pain, Abdomen/GI: Negative for abdominal pain, nausea, vomiting, diarrhea, and constipation. 19:47 Skin: Negative for injury, rash, and discoloration, Neuro: Negative for headache, weakness, numbness, tingling, and seizure. 19:47 MS/extremity: Positive for pain, of the left forearm and left elbow, Negative for injury or acute deformity. 19:47 All other systems are negative. Exam: 19:47 Constitutional: This is a well developed, well nourished patient who is awake, alert, pm1 and in no acute distress. Head/Face: Normocephalic, atraumatic. 19:47 Skin: Warm, dry with normal turgor. Normal color with no rashes, no lesions, and no evidence of cellulitis. 19:47 Cardiovascular: Exam negative for acute changes, Rate: normal, Rhythm: regular, Pulses: no pulse deficits are appreciated. 19:47 Respiratory: Exam negative for acute changes, respiratory distress, shortness of breath. 19:47 Abdomen/GI: Inspection: gravid appearance, is noted, Palpation: abdomen is soft and non-tender, in all quadrants. 19:47 Musculoskeletal/extremity: Exam is negative for acute changes, Extremities: grossly normal except: noted in the dorsal aspect of left forearm at biceps insertion point: tenderness, There is no evidence of swelling, Circulation is intact in all extremities. 19:47 Neuro: Exam negative for acute changes, Orientation: is normal, Mentation: is normal, Motor: is normal, moves all fours. Vital Signs: 17:49 BP 114 / 71; Pulse 86; Resp 20; Temp 97.7(TE); Pulse Ox 100% on R/A; Weight 60.33 kg kg (M); Height 5 ft. 3 in. (160.02 cm); Pain 10/10; 19:52 BP 110 / 71; Pulse 90; Resp 14; Pulse Ox 100% ; vg1 21:12 BP 112 / 73; Pulse 75; Resp 18; Pulse Ox 100% on R/A; kg 17:49 Body Mass Index 23.56 (60.33 kg, 160.02 cm) kg MDM: 19:24 Patient medically screened. pm1 20:11 Data reviewed: vital signs. Data interpreted: Pulse oximetry: on room air is 100 %. pm1 Interpretation: normal. 20:48 Counseling: I had a detailed discussion with the patient and/or guardian regarding: the pm1 historical points, exam findings, and any diagnostic results supporting the discharge/admit diagnosis, radiology results, the need for outpatient follow up, to return to the emergency department if symptoms worsen or persist or if there are any questions or concerns that arise at home. 20:48 ED course: Ultrasound negative for DVT. pm1 09/23 18:11 Order name: Forearm Left; Complete Time: 19:24 EDMS 09/23 20:09 Order name: UPPER EXTREMITY VENOUS UNILATE; Complete Time: 21:04 EDMS 09/23 20:49 Order name: Sling; Complete Time: 21:03 pm1 Administered Medications: No medications were administered Disposition: 09/24 07:03 Co-signature as Attending Physician, Rick Willard MD. rn Disposition Summary: 09/23/20 20:49 Discharge Ordered Location: Home pm1 Problem: new pm1 Symptoms: have improved pm1 Condition: Stable pm1 Diagnosis - Strain of distal left biceps tendon pm1 Followup: pm1 - With: Emergency Department - When: As needed - Reason: Worsening of condition Followup: pm1 - With: Private Physician - When: 2 - 3 days - Reason: Recheck today's complaints, Continuance of care, Re-evaluation by your physician Discharge Instructions: - Discharge Summary Sheet pm1 - Musculoskeletal Pain pm1 - How to Use a Sling pm1 Forms: - Medication Reconciliation Form pm1 - Thank You Letter pm1 - Antibiotic Education pm1 - Prescription Opioid Use pm1 Signatures: Dispatcher [employer] EDRick Gr MD MD rn Marinas, Patrick, NP DIRECTOR OF MOBILE MARKETING pm1 Sharon Bean RN RN kg Corrections: (The following items were deleted from the chart) 09/23 17:52 17:51 PSHx: Unable to Obtain; kg kg 17:58 17:55 Elbow Right 3 View+RAD.RAD.BRZ ordered. EDNM EDMS 18:10 17:55 Forearm Right+RAD.RAD.BRZ ordered. EDNM EDMS 20:09 19:43 Extremity Venous Uni Ltd+US.RAD.BRZ ordered. EDMS EDMS 21:03 20:49 Pain in left forearm pm1 pm1 21:03 20:49 Pain in left elbow pm1 pm1 21:04 19:47 Musculoskeletal/extremity: Exam is negative for acute changes, Extremities: pm1 grossly normal except: noted in the dorsal aspect of left forearm: tenderness, There is no evidence of swelling, Circulation is intact in all extremities. pm1
--- NOTE | 2020-09-23 21:03 | RAD REPORT ---
EXAM DESCRIPTION: US - UPPER EXTREMITY VENOUS UNILATE - 09/23/2020 8:55 pm CLINICAL HISTORY: Pain COMPARISON: None. TECHNIQUE: Real-time sonographic evaluation of the left upper extremity deep venous system was perfo rmed. FINDINGS: Normal compressibility, flow augmentation, phasic flow and spontaneous flow is identified in the left upper extremity deep venous system. No intraluminal filling defects seen. IMPRESSION: No DVT in the left upper extremity.
[2020-09-23 21:19] VITALS: TEMP 97.7; O2SAT 100
[2020-09-23 21:23] VITALS: BP 112/73
== END 2020-09-23 21:13 | disposition home or self-care (01) ==
LOC: ER 16:26
DX: S46.212A Strain of muscle, fascia and tendon of other parts of biceps, left arm, initial encounter (principal)
CPT/HCPCS: 93971; 99283

== ENCOUNTER 2021-04-01 17:14 | Emergency (ER) | payer OTHER ==
--- OUTSIDE RECORDS SUMMARY | 2021-04-01 17:16 | XMS REPORT | Continuity of Care Document ---
:1990 Author Organization [facility] t Address [address] [place] [address] Care Team Providers Name Role Phone Asked, [...] Active U 2014-02 [facility] Allergie 0-20 [place] 00:00: [address] Social History Social Habit Start Date Stop Date Quantity Comments Source Tobacco use and 2019-12-26 2019-12-26 Never used [facility] exposure 00:00:00 00:00:00 Hospital Alcohol intake 2019-12-26 2019-12-26 Current drinker [facility] dist 00:00:00 00:00:00 of alcohol Hospital (finding) Sex Assigned At [birth year] [facility] 00:00:00 00:00:00 Hospital Smoking Status Start Date Stop Date Source Never smoker [facility] Medications Ordered Filled Start Stop Current Ordering Indication Dosage Frequency Signature Comments Components Source Medication Medication Date Date Medication? Clinician (SIG) Name Name No known No [facility]i [facility] Vital Signs Vital Name Observation Time Observation Value Comments Source Heart rate 2019-12-27 02:26:00 90 /min [facility] Respiratory rate 2019-12-27 02:26:00 16 /min [facility] Oxygen saturation in 2019-12-27 02:26:00 100 /min [facility] Arterial blood by Pulse oximetry Systolic blood 2019-12-27 02:26:00 109 mm[Hg] Method ist [facility] pressure Diastolic blood 2019-12-27 02:26:00 57 mm[Hg] [facility] pressure Body temperature 2019-12-27 00:08:38 37.33 [place] [facility] Procedures Procedure Date / Time Performed Performing Clinician Iain katz [id number] 2020-10-17 00:00:00 TOREL.01 [facility] [id number] 2020-10-17 00:00:00 TOREL.01 [facility] Encounters Start End Encounter Admission Attending Care Care Encounter Source Date/Time Date/Time Type Type Clinicians Facility Department ID 2020-10-27 Inpatient EL Almanzar, [facility] LD [id number] [facility] 10:13:[address] [facility] 2020-10-27 Inpatient EL Almanzar, [facility] LD [id number] [facility] 10:13:[address] [facility] 2021-01-27 2021-01-27 Outpatient Almanzar, [facility] SURG [id number] [facility] 12:30:00 12:30:[address] [facility] 2021-01-27 2021-01-27 Inpatient EL Almanzar, [facility] SURG [id number] [facility] 12:30:00 12:30:[address] [facility] 2021-01-17 2021-01-17 Outpatient Almanzar, [facility] SURG [id number] [facility] 12:30:00 12:30:[address] [facility] 2021-01-17 2021-01-17 Inpatient EL Almanzar, [facility] SURG [id number] [facility] 12:30:00 12:30:[id number] [facility] 2020-10-17 2020-10-18 Inpatient EM AMARI AlmanzarWU OBPP [id number] [facility] 00:45:00 18:50:[address] [facility] 2020-10-16 2020-10-16 Emergency EM AMARI AlmanzarWU EDIL [id number] [facility] 20:22:00 20:22:[address] [facility] 2020-08-18 2020-08-19 Emergency EM AMARI AlmanzarWU EDIL [id number] [facility] 22:57:00 00:19:[address] [facility] 2019-12-26 2019-12-26 Emergency Mabry, 1.2.840.1 [id number] Methodi 19:03:00 20:32:00 [address] 3.430.2.7 Hospit a .3.499264 l .8 2019-12-26 2019-12-26 Travel 1.2.840.1 [id number] Methodi 00:00:00 00:00:[address] 3.430.2.7 0.2.7.3.698 Ho spita .3.190328 084.8 l .8 2016-09-29 2016-10-04 [facility] [id number] [place] 00:00:00 00:00:00 [facility] Results Test Description Test Time Test Comments Results Result Comments Source HGB HCT 2020-10-18 10:51:00 Test Item Value Reference Range Interpretation Comme nts HEMOGLOBIN (test code = HGB) 7.9 G/DL 11.2-14.9 L HEMATOCRIT (test code = HCT) 26.7 % 33.2-43.5 L URINALYSIS [id number] 07:57:00 Test Item Value Reference Range Interpretation Comments UA COLOR (test code = YELLOW YELLOW COLU) UA APPEARANCE (test code CLEAR CLEAR = APPU) UA GLUCOSE DIPSTICK (test NORMAL MG/DL NORMAL code = DGLUU) UA BILIRUBIN DIPSTICK NEGATIVE MG/DL NEGATIVE (test code = BILU) UA KETONE DIPSTICK (test 15 MG/DL NEGATIVE A code = KETU) UA SPECIFIC GRAVITY (test 1.005 1.003-1.030 N code = SGU) UA BLOOD DIPSTICK (test 250 Clint/mm3 NEGATIVE A code = MUSTAPHA) UA PH DIPSTICK (test code 7.0 5.0-9.0 N = GREG) UA PROTEIN DIPSTICK (test NEGATIVE MG/DL NEGATIVE code = PROU) UA UROBILINIOGEN DIPSTICK NORMAL MG/DL NORMAL (test code = URO) UA NITRITE DIPSTICK (test NEGATIVE NEGATIVE code = MARK ANTHONY) UA LEUKOCYTE ESTERASE 500 /mm3 NEGATIVE A DIPSTICK (test code = LEUU) UA CULTURE NEEDED? (test NO, WBC<10 Criteria Culture Chk code = UACULT) URINE SPECIMEN TYPE CLEAN CATCHUA [id number] 07:57:00 Test Item Value Reference Range Interpretation Comments UA RBC (test code = RBCU) 0-3 RBC/HPF 0-3 UA WBC (test code = XWBCU) 5-9 WBC/HPF 0-5 A UA EPITHELIAL CELLS (test MODERATE EPI/HPF FEW A code = EPIU) UA BACTERIA (test code = RARE NONE XBACU) UA AMORPHOUS SEDIMENT (test FEW NONE A code = AMORU) UA YEAST (test code = RARE #/HPF NONE A YEASTU) URINE SPECIMEN TYPE CLEAN CATCHURINALYSIS [id number] 07:43:00 Test Item Value Reference Range Interpretation Comments UA COLOR (test code = COLU) YELLOW YELLOW UA APPEARANCE (test code = CLEAR CLEAR APPU) UA GLUCOSE DIPSTICK (test code NORMAL MG/DL NORMAL = DGLUU) UA BILIRUBIN DIPSTICK (test NEGATIVE MG/DL NEGATIVE code = BILU) UA KETONE DIPSTICK (test code 15 MG/DL NEGATIVE A = KETU) UA SPECIFIC GRAVITY (test code 1.005 1.003-1.030 N = SGU) UA BLOOD DIPSTICK (test code = 250 Clint/mm3 NEGATIVE A MUSTAPHA) UA PH DIPSTICK (test code = 7.0 5.0-9.0 N GREG) UA PROTEIN DIPSTICK (test code NEGATIVE MG/DL NEGATIVE = PROU) UA UROBILINIOGEN DIPSTICK NORMAL MG/DL NORMAL (test code = URO) UA NITRITE DIPSTICK (test code NEGATIVE NEGATIVE = MARK ANTHONY) UA LEUKOCYTE ESTERASE DIPSTICK 500 /mm3 NEGATIVE A (test code = LEUU) UA CULTURE NEEDED? (test code Criteria Culture Chk = UACULT) URINE SPECIMEN TYPE CLEAN CATCHUA [id number] 07:43:00 Test Item Value Reference Range Interpretation Comments UA RBC (test code = RBCU) RBC/HPF 0-3 UA WBC (test code = XWBCU) WBC/HPF 0-5 UA EPITHELIAL CELLS (test code = EPI/HPF FEW EPIU) UA BACTERIA (test code = XBACU) NONE URINE SPECIMEN TYPE CLEAN CATCHURINALYSIS [id number] 07:43:00 Test Item Value Reference Range Interpretation Comments UA COLOR (test code = COLU) YELLOW YELLOW UA APPEARANCE (test code = CLEAR CLEAR APPU) UA GLUCOSE DIPSTICK (test code NORMAL MG/DL NORMAL = DGLUU) UA BILIRUBIN DIPSTICK (test NEGATIVE MG/DL NEGATIVE code = BILU) UA KETONE DIPSTICK (test code 15 MG/DL NEGATIVE A = KETU) UA SPECIFIC GRAVITY (test code 1.005 1.003-1.030 N = SGU) UA BLOOD DIPSTICK (test code = 250 Clint/mm3 NEGATIVE A MUSTAPHA) UA PH DIPSTICK (test code = 7.0 5.0-9.0 N GREG) UA PROTEIN DIPSTICK (test code NEGATIVE MG/DL NEGATIVE = PROU) UA UROBILINIOGEN DIPSTICK NORMAL MG/DL NORMAL (test code = URO) UA NITRITE DIPSTICK (test code NEGATIVE NEGATIVE = MARK ANTHONY) UA LEUKOCYTE ESTERASE DIPSTICK 500 /mm3 NEGATIVE A (test code = LEUU) UA CULTURE NEEDED? (test code Criteria Culture Chk = UACULT) URINE SPECIMEN TYPE CLEAN CATCHUA [id number] 07:43:00 Test Item Value Reference Range Interpretation Comments UA RBC (test code = RBCU) RBC/HPF 0-3 UA WBC (test code = XWBCU) WBC/HPF 0-5 UA EPITHELIAL CELLS (test code = EPI/HPF FEW EPIU) UA BACTERIA (test code = XBACU) NONE URINE SPECIMEN TYPE CLEAN CATCHRAPID PLASMA [id number] 06:53:00 Test Item Value Reference Range Interpretation Comments RAPID PLASMA REAGIN (test code = NON REAC NON REAC RPR) AG HEPATITIS B [id number] 06:53:00 Test Item Value Reference Range Interpretation Comments AG HEPATITIS B SURFACE (test code = NEGATIVE NONREACTIVE HBSAG) HIV 12 AB [id number] 06:53:00 Test Item Value Reference Range Interpretation Comments HIV 1 2 COMBO AG/AB SCREEN AB/AG NON REACTIVE NONREACTIVE (test code = [id number]) CBC W/AUTO [id number] 03:45:00 Test Item Value Reference Range Interpretation Comments WHITE BLOOD CELL (test code = 8.3 K/MM3 3.8-9.8 N WBC) RED BLOOD CELL (test code = 4.05 M/MM3 3.58-4.97 N RBC) HEMOGLOBIN (test code = HGB) 9.2 G/DL 11.2-14.9 L HEMATOCRIT (test code = HCT) 31.7 % 33.2-43.5 L MEAN CELL VOLUME (test code = 78 fL 80.7-99.1 L MCV) MEAN CELL HGB (test code = MCH) 22.7 pg 27.0-34.1 L MEAN CELL HGB CONCETRATION 29.0 % 32.2-35.7 L (test code = MCHC) RED CELL DISTRIBUTION WIDTH 17.0 % 12.1-15.2 H (test code = RDW) PLATELET COUNT (test code = 322 K/MM3 129-368 N PLT) MEAN PLATELET VOLUME (test code 8.7 fl 7.4-10.4 N = MPV) NEUTROPHIL % (test code = NT%) 75.4 % 43-75 H IMMATURE GRANULOCYTE % (test 0.4 % 0.0-2.0 N code = IG%) LYMPHOCYTE % (test code = LY%) 16.8 % 14-44 N MONOCYTE % (test code = MO%) 6.4 % 4-13 N EOSINOPHIL % (test code = EO%) 0.8 % 0-6 N BASOPHIL % (test code = BA%) 0.2 % 0-2 N NUCLEATED RBC % (test code = 0.0 % 0-1.0 N NRBC%) NEUTROPHIL # (test code = NT#) 6.24 K/mm3 2.0-7.6 N IMMATURE GRANULOCYTE # (test 0.03 x10 3/uL 0-0.03 N code = IG#) LYMPHOCYTE # (test code = LY#) 1.39 K/mm3 1.0-3.8 N MONOCYTE # (test code = MO#) 0.53 K/mm3 0.1-0.8 N EOSINOPHIL # (test code = EO#) 0.07 K/mm3 0.0-0.2 N BASOPHIL # (test code = BA#) 0.02 K/mm3 0.0-0.2 N NUCLEATED RBC # (test code = 0.00 K/mm3 0.0-0.1 N NRBC#) DIFFERENTIAL [id number] 03:45:00 Test Item Value Reference Range Interpretation Comments RBC MORPHOLOGY REQUIRED (test code = ABNORMAL RBCM) ANISOCYTOSIS (test code = ANISO) SLIGHT NONE PLATELET ESTIMATE (test code = ADEQUATE ADEQUATE PLTEST) PLATELET MORPHOLOGY (test code = NORMAL NORMAL PLTMORPH) HIV 12 AB [id number] 03:10:00 Test Item Value Reference Range Interpretation Comments HIV 1 2 COMBO AG/AB SCREEN AB/AG NON REACTIVE NONREACTIVE (test code = [id number]) RAPID PLASMA [id number] 03:10:00 Test Item Value Reference Range Interpretation Comments RAPID PLASMA REAGIN (test code = RPR) NON REAC AG HEPATITIS B [id number] 03:10:00 Test Item Value Reference Range Interpretation Comments AG HEPATITIS B SURFACE (test code = NEGATIVE NONREACTIVE HBSAG) RAPID PLASMA [id number] 03:01:00 Test Item Value Reference Range Interpretation Comments RAPID PLASMA REAGIN (test code = RPR) NON REAC AG HEPATITIS B [id number] 03:01:00 Test Item Value Reference Range Interpretation Comments AG HEPATITIS B SURFACE (test code = NEGATIVE NONREACTIVE HBSAG) HIV 12 AB [id number] 03:01:00 Test Item Value Reference Range Interpretation Comments HIV 1 2 COMBO AG/AB SCREEN (test code = NONREACTIVE [id number]) COVID 19 Asymptomatic IH [id number] 02:27:00 Test Item Value Reference Range Interpretation Comments COVID 19 NEGATIVE Negative "Negative resul ts from Asymptomatic IH AG patients with symptom (test code = onset beyondfiv e days, COVNONPUIAG) should be cindi ana as presumptive, andconfirmation with a molecular assay , if necessary forpa tient management may be performed. Nega tive results do notr ule out COVID-19 and sh ould not be used as the sole basisfor treatm ent or patient managem ent decisions, includinginfect ion control decisio ns. Negative result s should beconsidered in the context of a pa tients recent exposure s,history, and the presenc e of clinical signs and symptomsconsist ent with COVID-19.This t est detects both vi able andnon-viable S ARS-CoV and SARS CoV-2. Test performance dep endson the amount of virus (antigen) in the sample." CBC W/AUTO [id number] 02:12:00 Test Item Value Reference Range Interpretation Comments WHITE BLOOD CELL (test code = 8.3 K/MM3 3.8-9.8 N WBC) RED BLOOD CELL (test code = 4.05 M/MM3 3.58-4.97 N RBC) HEMOGLOBIN (test code = HGB) 9.2 G/DL 11.2-14.9 L HEMATOCRIT (test code = HCT) 31.7 % 33.2-43.5 L MEAN CELL VOLUME (test code = 78 fL 80.7-99.1 L MCV) MEAN CELL HGB (test code = MCH) 22.7 pg 27.0-34.1 L MEAN CELL HGB CONCETRATION 29.0 % 32.2-35.7 L (test code = MCHC) RED CELL DISTRIBUTION WIDTH 17.0 % 12.1-15.2 H (test code = RDW) PLATELET COUNT (test code = 322 K/MM3 129-368 N PLT) MEAN PLATELET VOLUME (test code 8.7 fl 7.4-10.4 N = MPV) NEUTROPHIL % (test code = NT%) 75.4 % 43-75 H IMMATURE GRANULOCYTE % (test 0.4 % 0.0-2.0 N code = IG%) LYMPHOCYTE % (test code = LY%) 16.8 % 14-44 N MONOCYTE % (test code = MO%) 6.4 % 4-13 N EOSINOPHIL % (test code = EO%) 0.8 % 0-6 N BASOPHIL % (test code = BA%) 0.2 % 0-2 N NUCLEATED RBC % (test code = 0.0 % 0-1.0 N NRBC%) NEUTROPHIL # (test code = NT#) 6.24 K/mm3 2.0-7.6 N IMMATURE GRANULOCYTE # (test 0.03 x10 3/uL 0-0.03 N code = IG#) LYMPHOCYTE # (test code = LY#) 1.39 K/mm3 1.0-3.8 N MONOCYTE # (test code = MO#) 0.53 K/mm3 0.1-0.8 N EOSINOPHIL # (test code = EO#) 0.07 K/mm3 0.0-0.2 N BASOPHIL # (test code = BA#) 0.02 K/mm3 0.0-0.2 N NUCLEATED RBC # (test code = 0.00 K/mm3 0.0-0.1 N NRBC#) DIFFERENTIAL [id number] 02:12:00 Test Item Value Reference Range Interpretation Comments RBC MORPHOLOGY REQUIRED (test code = RBCM) PLATELET ESTIMATE (test code = PLTEST) ADEQUATE PLATELET MORPHOLOGY (test code = NORMAL PLTMORPH) CBC W/AUTO [id number] 02:12:00 Test Item Value Reference Range Interpretation Comments WHITE BLOOD CELL (test code = 8.3 K/MM3 3.8-9.8 N WBC) RED BLOOD CELL (test code = 4.05 M/MM3 3.58-4.97 N RBC) HEMOGLOBIN (test code = HGB) 9.2 G/DL 11.2-14.9 L HEMATOCRIT (test code = HCT) 31.7 % 33.2-43.5 L MEAN CELL VOLUME (test code = 78 fL 80.7-99.1 L MCV) MEAN CELL HGB (test code = MCH) 22.7 pg 27.0-34.1 L MEAN CELL HGB CONCETRATION 29.0 % 32.2-35.7 L (test code = MCHC) RED CELL DISTRIBUTION WIDTH 17.0 % 12.1-15.2 H (test code = RDW) PLATELET COUNT (test code = 322 K/MM3 129-368 N PLT) MEAN PLATELET VOLUME (test code 8.7 fl 7.4-10.4 N = MPV) NEUTROPHIL % (test code = NT%) 75.4 % 43-75 H IMMATURE GRANULOCYTE % (test 0.4 % 0.0-2.0 N code = IG%) LYMPHOCYTE % (test code = LY%) 16.8 % 14-44 N MONOCYTE % (test code = MO%) 6.4 % 4-13 N EOSINOPHIL % (test code = EO%) 0.8 % 0-6 N BASOPHIL % (test code = BA%) 0.2 % 0-2 N NUCLEATED RBC % (test code = 0.0 % 0-1.0 N NRBC%) NEUTROPHIL # (test code = NT#) 6.24 K/mm3 2.0-7.6 N IMMATURE GRANULOCYTE # (test 0.03 x10 3/uL 0-0.03 N code = IG#) LYMPHOCYTE # (test code = LY#) 1.39 K/mm3 1.0-3.8 N MONOCYTE # (test code = MO#) 0.53 K/mm3 0.1-0.8 N EOSINOPHIL # (test code = EO#) 0.07 K/mm3 0.0-0.2 N BASOPHIL # (test code = BA#) 0.02 K/mm3 0.0-0.2 N NUCLEATED RBC # (test code = 0.00 K/mm3 0.0-0.1 N NRBC#) DIFFERENTIAL [id number] 02:12:00 Test Item Value Reference Range Interpretation Comments RBC MORPHOLOGY REQUIRED (test code = RBCM) PLATELET ESTIMATE (test code = PLTEST) ADEQUATE PLATELET MORPHOLOGY (test code = NORMAL PLTMORPH) - FET BIO PH MT W/O [id number] 23:36:00 [facility] 1990 Sex: F Patient Name: HEATHER PARRISH Unit No: [id number] EXAMS: CPT CODE: [id number] FET BIO PH MT W/O NST 72019 AFTER HOURS SERVICE ON: 10/16/2020 11:35 PM Biophysical Profile Location Code M12 History: Cat 2 strip Technique: Limited obstetric pelvis ultrasound obtained for evaluation of biophysical profile using grayscale and color Doppler. FINDINGS: Breathing 2 Body Movement2 Tone 2 DORIAN 2 Biophysical profile is 8 out of 8. Gestationalage of 38 weeks, 3 days. DORIAN is 11.97 cm. heart rate is 136 beats per minute. Placenta is anterior. orientation is vertex. Cervical length is 2.2 cm. IMPRESSION: BPP score 8 out of 8. Short cervix measuring 2.2 cm. at 2336 Reported and signed by: Isaac Dow M.D. CC: Higinio Hernandez MD Technologist: DEMOND Newton(A,OB) Transcrpt Date/Tm/Trnsp: 10/16/2020 (9626) [id number] Orig Print D/T: S: 10/16/2020 (6575) [facility] NAME: HEATHER PARRISH [address] PHYS: [place] [address] : 1990 AGE: 29 SEX: F LOC: [facility] PHONE #: [phone] EXAM DATE: 10/16/2020 STATUS: REG ER FAX #: [phone] RADIOLOGY NO: [id number] PAGE 1 Signed ReportAMNISURE (ROM) [id number] 23:59:00 Test Item Value Reference Range Interpretation Comments AMNISURE (ROM) TEST (test code = NON-RUPTURED NON-RUPTURE AMNI)
[2021-04-01] MEDS ORDERED: ACETAMINOPHEN 500 MG TAB ONE (17:41)
[2021-04-01 18:39] LABS: SARS-COV-2 RT PCR NEGATIVE (NEGATIVE)
--- NOTE | 2021-04-01 18:44 | ER ---
Nurse's Notes [facility] Name: Marielle Jones Age: 30 yrs Sex: Female : 1990 Arrival Date: 04/01/2021 Time: 17:15 Bed Waiting Private MD: Diagnosis: Acute pharyngitis, unspecified Presentation: 04/01 17:36 Chief complaint: Patient states: Sore throat and fever for 1 day. Coronavirus screen: ll1 Vaccine status: Patient reports being unvaccinated. Client denies travel out of the [place] in the last 14 days. congestion, cough unrelated to allergies, fatigue, fever, headache, sore throat, Client presents with at least one sign or symptom that may indicate coronavirus-19. Standard/surgical mask placed on the client. Ebola Screen: Patient denies travel to an Ebola-affected area in the 21 days before illness onset. Initial Sepsis Screen: Does the patient meet any 2 criteria? HR > 90 bpm. No. Patient's initial sepsis screen is negative. Does the patient have a suspected source of infection? Yes: Other: sore throat. Risk Assessment: Do you want to hurt yourself or someone else? Patient reports no desire to harm self or others. Onset of symptoms was April 01, 2021. 17:36 Method Of Arrival: Ambulatory ll1 17:36 Acuity: CODY 4 ll1 Triage Assessment: 18:58 General: Appears in no apparent distress. Behavior is calm, cooperative, appropriate ll1 for age. Historical: - Allergies: 17:35 No Known Allergies; ll1 - PMHx: 17:35 Asthma; ll1 - PSHx: 17:35 None; ll1 - Immunization history:: Client reports having NOT received the Covid vaccine. Flu vaccine status is unknown. - Social history:: Smoking status: Patient denies any tobacco usage or history of. Screenin:57 Abuse screen: Denies threats or abuse. Nutritional screening: No deficits noted. ll1 Tuberculosis screening: No symptoms or risk factors identified. Fall Risk None identified. Assessment: 18:57 Pain: Complains of pain in throat Pain does not radiate. Pain currently is 8 out of 10 ll1 on a pain scale. Respiratory: Airway is patent Respiratory effort is even, unlabored, Breath sounds are clear. EENT: Throat is reddened. Vital Signs: 17:36 Pulse 135; Temp 100.9; Pulse Ox 96% on R/A; Weight 54.43 kg; Height 5 ft. 3 in. (160.02 ll1 cm); Pain 10/10; 17:36 BP 114 / 83; Resp 16; Pulse Ox 97% ; ll1 18:55 BP 123 / 82; Pulse 128; Resp 18; Temp 99.7; ll1 17:36 Body Mass Index 21.26 (54.43 kg, 160.02 cm) ll1 ED Course: 17:15 Patient arrived in ED. ds1 17:36 [facility] kb 17:36 Rick iWllard MD is Attending Physician. kb 17:37 Triage completed. ll1 17:37 Arm band placed on. ll1 17:46 Eduardo White, DEISY is Primary Nurse. ll1 18:58 No provider procedures requiring assistance completed. Patient did not have IV access ll1 during this emergency room visit. Administered Medications: 17:46 Drug: Tylenol 1000 mg Route: PO; ll1 Outcome: 18:43 Discharge ordered by . kb 18:59 Discharged to home ambulatory. ll1 18:59 Condition: good 18:59 Discharge instructions given to patient, Demonstrated understanding of instructions, follow-up care. 19:00 Patient left the ED. ll1 Signatures: Ora Abbott FNP-C FNP-Amanda Jaquez ds1 Eduardo White, RN RN ll1
--- NOTE | 2021-04-01 18:44 | EDPHYS ---
Physician Documentation [facility] Name: Marielle Jones Age: 30 yrs Sex: Female : 1990 Arrival Date: 04/01/2021 Time: 17:15 Bed Waiting Private MD: ED Physician Rick Willard HPI: 04/01 17:43 This 30 yrs old Black Female presents to ER via Ambulatory with complaints of Sore kb Throat, Fever. 17:43 The patient presents with sore throat. The patient describes throat pain as constant. kb Onset: The symptoms/episode began/occurred today, at 02:30. Severity of symptoms: At their worst the symptoms were moderate, in the emergency department the symptoms are unchanged. Modifying factors: The symptoms are alleviated by nothing, the symptoms are aggravated by swallowing, Patient's oral intake status: good. Associated signs and symptoms: Pertinent positives: fever, Sore throat. The patient has not experienced similar symptoms in the past. The patient has not recently seen a physician. Pt reports sore throat and fever that started at 0230 this morning. Historical: - Allergies: 17:35 No Known Allergies; ll1 - PMHx: 17:35 Asthma; ll1 - PSHx: 17:35 None; ll1 - Immunization history:: Client reports having NOT received the Covid vaccine. Flu vaccine status is unknown. - Social history:: Smoking status: Patient denies any tobacco usage or history of. ROS: 17:45 Respiratory: Negative for shortness of breath, cough, wheezing, and pleuritic chest kb pain. 17:45 Constitutional: Positive for fever. 17:45 ENT: Positive for sore throat. 17:45 All other systems are negative. Exam: 17:45 Constitutional: This is a well developed, well nourished patient who is awake, alert, kb and in no acute distress. Head/Face: Normocephalic, atraumatic. Respiratory: Respirations even and unlabored. No increased work of breathing. Talking in full sentences Skin: Warm, dry with normal turgor. Normal color. MS/ Extremity: Pulses equal, no cyanosis. Neurovascular intact. Full, normal range of motion. Neuro: Awake and alert, GCS 15, oriented to person, place, time, and situation. Moves all extremities. Normal gait. Psych: Awake, alert, with orientation to person, place and time. Behavior, mood, and affect are within normal limits. 17:45 ENT: Posterior pharynx: Airway: normal, Tonsils: with erythema, Uvula: normal, midline, erythema, that is moderate. Vital Signs: 17:36 Pulse 135; Temp 100.9; Pulse Ox 96% on R/A; Weight 54.43 kg; Height 5 ft. 3 in. (160.02 ll1 cm); Pain 10/10; 17:36 BP 114 / 83; Resp 16; Pulse Ox 97% ; ll1 18:55 BP 123 / 82; Pulse 128; Resp 18; Temp 99.7; ll1 17:36 Body Mass Index 21.26 (54.43 kg, 160.02 cm) ll1 MDM: 17:38 Patient medically screened. kb 17:45 Data reviewed: vital signs, nurses notes. Data interpreted: Pulse oximetry: on room air kb is 97 %. Interpretation: normal. 18:43 Counseling: I had a detailed discussion with the patient and/or guardian regarding: the kb historical points, exam findings, and any diagnostic results supporting the discharge/admit diagnosis, lab results, the need for outpatient follow up, a family practitioner, to return to the emergency department if symptoms worsen or persist or if there are any questions or concerns that arise at home. 04/01 17:37 Order name: Strep; Complete Time: 18:22 kb 04/01 17:37 Order name: COVID-19/FLU A+B (Document "Date of Onset" if Symptomatic); Complete Time: kb 18:43 04/01 18:26 Order name: Throat Culture EDMS Administered Medications: 17:46 Drug: Tylenol 1000 mg Route: PO; ll1 Disposition Summary: 04/01/21 18:43 Discharge Ordered Location: Home kb Condition: Stable kb Diagnosis - Acute pharyngitis, unspecified kb Followup: kb - With: Emergency Department - When: As needed - Reason: Worsening of condition Followup: kb - With: Private Physician - When: 2 - 3 days - Reason: Recheck today's complaints, Continuance of care, Re-evaluation by your physician Discharge Instructions: - Discharge Summary Sheet kb - Pharyngitis, [id number] kb Forms: - Medication Reconciliation Form kb - Thank You Letter kb - Antibiotic Education kb - Prescription Opioid Use kb Addendum: 04/04/2021 07:03 Co-signature as Attending Physician, Rick Willard MD I agree with the assessment and r n plan of care. Attestation: The patient's history, exam findings, diagnostics, and a summary of any interventions or procedures was reviewed in detail with Ora PAYNE. Signatures: Dispatcher [employer] EDIA Ora Abbott, PUJA-C SAFETY INSTRUCTOR-CkRick Kim MD MD rn Lewis, Lynsay, RN RN 1
[2021-04-01 20:05] VITALS: O2SAT 97
[2021-04-01 20:08] VITALS: BP 123/82; TEMP 99.7
== END 2021-04-01 19:00 | disposition home or self-care (01) ==
LOC: ER 17:14
DX: J02.9 Acute pharyngitis, unspecified (principal); Z20.822 Contact with and (suspected) exposure to COVID-19
CPT/HCPCS: 87070; 87081; 0240U; 99283

== ENCOUNTER 2021-06-14 10:15 | Emergency (ER) | payer OTHER ==
--- OUTSIDE RECORDS SUMMARY | 2021-06-14 10:18 | XMS REPORT | Continuity of Care Document ---
:1990 Author Organization [facility] t Address [address] [place] [address] Care Team Providers Name Role Phone Asked, [...] U 2014-02 [facility]ie 0-20 [place] 00:00: [address] Social History Social Habit Start Date Stop Date Quantity Comments Source Tobacco use and 2019-12-26 2019-12-26 Never used [facility] 00:[facility]00 Hospital Alcohol intake 2019-12-26 2019-12-26 Current drinker [facility] 00:00:00 00:00:00 of alcohol Hospital (finding) Sex Assigned At [birth year] [facility] Smoking Status Start Date Stop Date Source [facility] smoker [facility] Medications Ordered Filled Start Stop Current Ordering Indication Dosage Frequency Signature Comments Components Source Medication Medication Date Date Medication? Clinician (SIG) Name Name No known No [facility] Vital Signs Vital Name Observation Time Observation Value Comments Source Heart rate 2019-12-27 02:26:00 90 /min [facility] Respiratory rate 2019-12-27 02:26:00 16 /min [facility] Oxygen saturation in 2019-12-27 02:26:00 100 /min [facility] Arterial blood by Pulse oximetry Systolic blood 2019-12-27 02:26:00 109 mm[Hg] [facility] pressure Diastolic blood 2019-12-27 02:26:00 57 mm[Hg] [facility] pressure Body temperature 2019-12-27 00:08:38 37.33 Kortney [facility] Procedures Procedure Date / Time Performed Performing Clinician Iain katz [id number] 2020-10-17 00:00:00 TOREL.01 [facility] [id number] 2020-10-17 00:00:00 TOREL.01 [facility] Encounters Start End Encounter Admission Attending Care Care Encounter Source Date/Time Date/Time Type Type Clinicians Facility Department ID 2020-10-27 Inpatient EL Almanzar, [facility] LD [id number] [facility] 10:13:00 Tadeo 20186 [facility] 2020-10-27 Inpatient EL Almanzar, [facility] LD [id number] [facility] 10:13:00 Tadeo 14 [facility] 2021-01-27 2021-01-27 Outpatient Almanzar, [facility] SURG [id number] [facility] 12:30:00 12:30:00 Tadeo 88 [facility] 2021-01-27 2021-01-27 Inpatient EL Almanzar, [facility] SURG [id number] [facility] 12:30:00 12:30:00 Tadeo 41800 [facility] 2021-01-17 2021-01-17 Outpatient Almanzar, [facility] SURG [id number] [facility] 12:30:00 12:30:00 Tadeo 98 [facility] 2021-01-17 2021-01-17 Inpatient EL Almanzar, [facility] SURG [id number] [facility] 12:30:00 12:30:00 Tadeo [id number] [facility] 2020-10-17 2020-10-18 Inpatient EM AMARI AlmanzarWU OBPP [id number] [facility] 00:45:00 18:50:00 Tadeo 38629 [facility] 2020-10-16 2020-10-16 Emergency EM AMARI AlmanzarWU EDIL [id number] [facility] 20:22:00 20:22:00 Tadeo 96110 [facility] 2020-08-18 2020-08-19 Emergency EM AMARI AlmanzarWU EDIL [id number] [facility] 22:57:00 00:19:00 Tadeo 78594 [facility] 2019-12-26 2019-12-26 Emergency Mabry, 1.2.840.1 [id number] [facility] 19:03:00 20:32:[address] 3.430.2.7 Hospit a .3.079591 l .8 2019-12-26 2019-12-26 Travel 1.2.840.1 [id number] [id number] [facility] 00:00:00 00:00:[address] 3.430.2.7 0.2.7.3.698 Ho [facility]ita .3.646597 084.8 l .8 2016-09-29 2016-10-04 [facility] [id number] [facility] 00:00:00 00:00:00 [facility] Results Test Description Test Time Test Comments Results Result Comments Source HGB HCT 2020-10-18 10:51:00 Test Item Value Reference Range Interpretation Comme nts HEMOGLOBIN (test code = HGB) 7.9 G/DL 11.2-14.9 L HEMATOCRIT (test code = HCT) 26.7 % 33.2-43.5 L URINALYSIS [id number] 07:57:00 Test Item Value Reference Range Interpretation [...] = UACULT) URINE SPECIMEN TYPE CLEAN CATCHUA [id number] 07:57:00 Test Item Value Reference Range Interpretation [...] A YEASTU) URINE SPECIMEN TYPE CLEAN CATCHURINALYSIS [id number] 07:43:00 Test Item Value Reference Range Interpretation [...] = UACULT) URINE SPECIMEN TYPE CLEAN CATCHUA [id number] 07:43:00 Test Item Value Reference Range Interpretation Comments UA RBC (test code = RBCU) RBC/HPF 0-3 UA WBC (test code = XWBCU) WBC/HPF 0-5 UA EPITHELIAL CELLS (test code = EPI/HPF FEW EPIU) UA BACTERIA (test code = XBACU) NONE URINE SPECIMEN TYPE CLEAN CATCHURINALYSIS [id number] 07:43:00 Test Item Value Reference Range Interpretation [...] = UACULT) URINE SPECIMEN TYPE CLEAN CATCHUA [id number] 07:43:00 Test Item Value Reference Range Interpretation Comments UA RBC (test code = RBCU) RBC/HPF 0-3 UA WBC (test code = XWBCU) WBC/HPF 0-5 UA EPITHELIAL CELLS (test code = EPI/HPF FEW EPIU) UA BACTERIA (test code = XBACU) NONE URINE SPECIMEN TYPE CLEAN CATCHRAPID PLASMA [id number] 06:53:00 Test Item Value Reference Range Interpretation Comments RAPID PLASMA REAGIN (test code = NON REAC NON REAC RPR) AG HEPATITIS B [id number] 06:53:00 Test Item Value Reference Range Interpretation Comments AG HEPATITIS B SURFACE (test code = NEGATIVE NONREACTIVE HBSAG) HIV 12 AB [id number] 06:53:00 Test Item Value Reference Range Interpretation Comments HIV 1 2 COMBO AG/AB SCREEN AB/AG NON REACTIVE NONREACTIVE (test code = [id number]) CBC W/AUTO [id number] 03:45:00 Test Item Value Reference Range Interpretation [...] = 0.00 K/mm3 0.0-0.1 N NRBC#) DIFFERENTIAL [id number] 03:45:00 Test Item Value Reference Range Interpretation Comments RBC MORPHOLOGY REQUIRED (test code = ABNORMAL RBCM) ANISOCYTOSIS (test code = ANISO) SLIGHT NONE PLATELET ESTIMATE (test code = ADEQUATE ADEQUATE PLTEST) PLATELET MORPHOLOGY (test code = NORMAL NORMAL PLTMORPH) HIV 12 AB [id number] 03:10:00 Test Item Value Reference Range Interpretation Comments HIV 1 2 COMBO AG/AB SCREEN AB/AG NON REACTIVE NONREACTIVE (test code = [id number]) RAPID PLASMA [id number] 03:10:00 Test Item Value Reference Range Interpretation Comments RAPID PLASMA REAGIN (test code = RPR) NON REAC AG HEPATITIS B [id number] 03:10:00 Test Item Value Reference Range Interpretation Comments AG HEPATITIS B SURFACE (test code = NEGATIVE NONREACTIVE HBSAG) RAPID PLASMA [id number] 03:01:00 Test Item Value Reference Range Interpretation Comments RAPID PLASMA REAGIN (test code = RPR) NON REAC AG HEPATITIS B [id number] 03:01:00 Test Item Value Reference Range Interpretation Comments AG HEPATITIS B SURFACE (test code = NEGATIVE NONREACTIVE HBSAG) HIV 12 AB [id number] 03:01:00 Test Item Value Reference Range Interpretation Comments HIV 1 2 COMBO AG/AB SCREEN (test code = NONREACTIVE [id number]) COVID 19 Asymptomatic [id number] 02:27:00 Test Item Value Reference Range Interpretation [...] virus (antigen) in the sample." CBC W/AUTO [id number] 02:12:00 Test Item Value Reference Range Interpretation [...] = 0.00 K/mm3 0.0-0.1 N NRBC#) DIFFERENTIAL [id number] 02:12:00 Test Item Value Reference Range Interpretation Comments RBC MORPHOLOGY REQUIRED (test code = RBCM) PLATELET ESTIMATE (test code = PLTEST) ADEQUATE PLATELET MORPHOLOGY (test code = NORMAL PLTMORPH) CBC W/AUTO [id number] 02:12:00 Test Item Value Reference Range Interpretation [...] = 0.00 K/mm3 0.0-0.1 N NRBC#) DIFFERENTIAL [id number] 02:12:00 Test Item Value Reference Range Interpretation Comments RBC MORPHOLOGY REQUIRED (test code = RBCM) PLATELET ESTIMATE (test code = PLTEST) ADEQUATE PLATELET MORPHOLOGY (test code = NORMAL PLTMORPH) - FET BIO PH CT W/O [id number] 23:36:00 [facility] 1990 Sex: F Patient Name: HEATHER PARRISH Unit No: [id number] EXAMS: CPT CODE: [id number] FET BIO PH CT W/O NST 74877 AFTER HOURS SERVICE ON: 10/16/2020 11:35 PM [...] MD Technologist: DEMOND Newton(A,OB) Transcrpt Date/Tm/Trnsp: 10/16/2020 (7796) [id number] Orig Print D/T: S: 10/16/2020 (8832) [facility] NAME: HEATHER PARRISH [address] PHYS: [place] [address] : 1990 AGE: 29 SEX: F LOC: [facility] PHONE #: [phone] EXAM DATE: 10/16/2020 STATUS: REG ER FAX #: [phone] RADIOLOGY NO: [id number] PAGE 1 Signed ReportAMNISURE (ROM) [id number] 23:59:00 Test Item Value Reference Range Interpretation Comments AMNISURE (ROM) TEST (test code = NON-RUPTURED NON-RUPTURE AMNI)
[2021-06-14 10:47] LABS: Urine Blood 3+ (Negative); Urine Glucose Negative (Negative); Urine Protein 1+ (Negative); Urine Specific Gravity >=1.030 (1.005-1.030); Urine pH 5.5 (5.0-7.0)
[2021-06-14 10:49] LABS: Absolute Lymphocytes (CBC) 1.4 K/uL (0.7-4.9); Hematocrit 35.3 % (36.0-45.0); Lymphocytes % 38.3 % (15.3-44.8); MPV 6.9 fL (7.6-11.3); RBC Red Blood Cell Count 4.38 M/uL (3.86-4.86)
[2021-06-14 11:07] LABS: BUN Blood Urea Nitrogen 9 mg/dL (7-18); Bicarbonate 27 mmol/L (21-32); Glucose Level 98 mg/dL (74-106); Potassium 3.7 mmol/L (3.5-5.1); Sodium Level 141 mmol/L (136-145)
[2021-06-14 11:10] LABS: HCG, Quantitative < 1 mIU/mL (1-3)
--- NOTE | 2021-06-14 13:30 | EDPHYS ---
Physician Documentation [facility] Name: Marielle Jones Age: 30 yrs Sex: Female : 1990 Arrival Date: 06/14/2021 Time: 10:19 Bed 20 Private MD: ED Physician Jefferson Blair HPI: 06/14 15:27 This 30 yrs old Black Female presents to ER via Ambulatory with complaints of Vaginal kdr Discharge, Pelvic Pain. 15:27 The patient presents with vaginal bleeding that is vaginal discharge, Patient has been kdr having lower abdominal pain and burning with urination for the past couple of days. She is about 8 months. She also just started her period. She indicated that she had been seen by her [employer] product consultant during the and diagnosed with HPV. She does have some concern that she may have some complication from the HPV. She does not have a follow-up appointment until July. Since she was having discomfort she wanted to get checked. She denies any urinary symptoms and states that she is having a yellow vaginal discharge which is not her normal discharge. Onset: The symptoms/episode began/occurred gradually, 1 week(s) ago. Modifying factors: The symptoms are alleviated by nothing, the symptoms are aggravated by movement. Associated signs and symptoms: The patient has no apparent associated signs or symptoms. Severity of symptoms: At their worst the symptoms were mild, in the emergency department the symptoms are unchanged. The patient's method of control includes She has been off her control for the last 2 months however she has not been sexually active. The patient has not experienced similar symptoms in the past. The patient has not recently seen a physician. 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 - Social history:: Smoking status: Patient denies any tobacco usage or history of. ROS: 15:27 Constitutional: Negative for fever, chills, and weight loss, Eyes: Negative for injury, kdr pain, redness, and discharge, ENT: Negative for injury, pain, and discharge, Neck: Negative for injury, pain, and swelling, Cardiovascular: Negative for chest pain, palpitations, and edema, Respiratory: Negative for shortness of breath, cough, wheezing, and pleuritic chest pain, Abdomen/GI: Negative for abdominal pain, nausea, vomiting, diarrhea, and constipation, Back: Negative for injury and pain, MS/Extremity: Negative for injury and deformity, Skin: Negative for injury, rash, and discoloration, Neuro: Negative for headache, weakness, numbness, tingling, and seizure activity. Psych: Negative for depression, anxiety, suicide ideation, homicidal ideation, and hallucinations, Allergy/Immunology: Negative for hives, rash, and allergies, Endocrine: Negative for neck swelling, polydipsia, polyuria, polyphagia, and marked weight changes, Hematologic/Lymphatic: Negative for swollen nodes, abnormal bleeding, and unusual bruising. 15:27 : Positive for injury or acute deformity, urinary symptoms, vaginal discharge. Exam: 15:27 Constitutional: This is a well developed, well nourished patient who is awake, alert, kdr and in no acute distress. Head/Face: Normocephalic, atraumatic. Eyes: Pupils equal round and reactive to light, extra-ocular motions intact. Lids and lashes normal. Conjunctiva and sclera are non-icteric and not injected. Cornea within normal limits. Periorbital areas with no swelling, redness, or edema. Neck: Trachea midline, no thyromegaly or masses palpated, and no cervical lymphadenopathy. Supple, full range of motion without nuchal rigidity, or vertebral point tenderness. No Meningismus. Chest/axilla: Normal chest wall appearance and motion. Nontender with no deformity. No lesions are appreciated. Cardiovascular: Regular rate and rhythm with a normal S1 and S2. No gallops, murmurs, or rubs. Normal PMI, no JVD. No pulse deficits. Respiratory: Lungs have equal breath sounds bilaterally, clear to auscultation and percussion. No rales, rhonchi or wheezes noted. No increased work of breathing, no retractions or nasal flaring. Abdomen/GI: Soft, non-tender, with normal bowel sounds. No distension or tympany. No guarding or rebound. No evidence of tenderness throughout. Back: No spinal tenderness. No costovertebral tenderness. Full range of motion. Skin: Warm, dry with normal turgor. Normal color with no rashes, no lesions, and no evidence of cellulitis. MS/ Extremity: Pulses equal, no cyanosis. Neurovascular intact. Full, normal range of motion. Neuro: Awake and alert, GCS 15, oriented to person, place, time, and situation. Cranial nerves II-XII grossly intact. Motor strength 5/5 in all extremities. Sensory grossly intact. Cerebellar exam normal. Normal gait. Psych: Awake, alert, with orientation to person, place and time. Behavior, mood, and affect are within normal limits. 15:27 : Pelvic Exam: External exam: is normal, Speculum exam: moderate bleeding, no cervicitis, os that is closed, bimanual exam reveals no cervical motion tenderness. Vital Signs: 10:23 BP 110 / 79; Pulse 92; Resp 17; Temp 98.3; Pulse Ox 96% on R/A; Weight 54.43 kg; Height ab2 5 ft. 4 in. (162.56 cm); Pain 5/10; 10:23 Body Mass Index 20.60 (54.43 kg, 162.56 cm) ab2 MDM: 13:29 Patient medically screened. kdr 15:27 Data reviewed: vital signs, lab test result(s), radiologic studies. Counseling: I had a kdr detailed discussion with the patient and/or guardian regarding: the historical points, exam findings, and any diagnostic results supporting the discharge/admit diagnosis, the presence of at least one elevated blood pressure reading (>120/80) during this emergency department visit. 06/14 10:28 Order name: Abo/rh Typing; Complete Time: 11: kdr 06/14 10:28 Order name: Basic Metabolic Panel; Complete Time: 11: kdr 06/14 10:28 Order name: CBC with Diff; Complete Time: 11: kdr 06/14 10:28 Order name: Quantitative Hcg; Complete Time: 11: kdr 06/14 10:46 Order name: Urine --Ancillary (enter results); Complete Time: 13:28 eb 06/14 10:47 Order name: Urine Dipstick-Ancillary; Complete Time: 11:37 EDMS 06/14 10:28 Order name: IV Saline Lock; Complete Time: 10:47 kdr 06/14 10:28 Order name: Labs collected and sent; Complete Time: 10:47 kdr 06/14 10:28 Order name: NPO; Complete Time: 10:47 kdr 06/14 10:28 Order name: Urine Dipstick-Ancillary (obtain specimen); Complete Time: 10:47 kdr 06/14 11:36 Order name: GC (GONORR/CHLAMYDIA) Probe kdr 06/14 11:36 Order name: Wet Prep; Complete Time: 13:28 kdr Administered Medications: No medications were administered Disposition Summary: 06/14/21 13:29 Discharge Ordered Location: Home kdr Problem: new kdr Symptoms: have improved kdr Condition: Stable kdr Diagnosis - Vaginal discharge, pelvic pain kdr Followup: kdr - With: Private Physician - When: 2 - 3 days - Reason: If symptoms return, Further diagnostic work-up, Recheck today's complaints, Continuance of care, Re-evaluation by your physician Discharge Instructions: - Discharge Summary Sheet kdr - Pelvic Pain, Female, Vzox-vs-Idez kdr Forms: - Medication Reconciliation Form kdr - Thank You Letter kdr - Work release form [email or web address] Signatures: Dispatcher [employer] Jefferson Simmons MD MD [facility] Senia Pace RN RN Ramesh Zimmer
--- NOTE | 2021-06-14 13:30 | ER ---
Nurse's Notes [facility] Name: Marielle Jones Age: 30 yrs Sex: Female : 1990 Arrival Date: 06/14/2021 Time: 10:19 Bed 20 Private MD: Diagnosis: Vaginal discharge, pelvic pain Presentation: 06/14 10:23 Chief complaint: Patient states: "I have been having lower abdominal pain, I had a baby ab2 8 months ago and was diagnosed with HPV and I don't see my OB until July and it hurts so I wanted to get checked,." Pt denies burning with urination. Pt states she has a yellow vaginal discharge. Coronavirus screen: Vaccine status: Patient reports being unvaccinated. Client denies travel out of the [place] in the last 14 days. At this time, the client does not indicate any symptoms associated with coronavirus-19. Ebola Screen: Patient negative for fever greater than or equal to 101.5 degrees Fahrenheit, and additional compatible Ebola Virus Disease symptoms Patient denies exposure to infectious person. Patient denies travel to an Ebola-affected area in the 21 days before illness onset. No symptoms or risks identified at this time. Initial Sepsis Screen: Does the patient meet any 2 criteria? No. Patient's initial sepsis screen is negative. Does the patient have a suspected source of infection? No. Patient's initial sepsis screen is negative. Risk Assessment: Do you want to hurt yourself or someone else? Patient reports no desire to harm self or others. Onset of symptoms is unknown. 10:23 Method Of Arrival: Ambulatory ab2 10:23 Acuity: CODY 3 ab2 Triage Assessment: 10:26 General: Appears in no apparent distress. uncomfortable, Behavior is calm, cooperative, ab2 appropriate for age. Pain: Complains of pain in suprapubic area. Neuro: Level of Consciousness is awake, alert, obeys commands, Oriented to person, place, time, situation, Appropriate for age [employer] are equal bilaterally Moves all extremities. Gait is steady, Speech is normal, Facial symmetry appears normal. Cardiovascular: No deficits noted. Respiratory: Airway is patent Respiratory effort is even, unlabored, Respiratory pattern is regular, symmetrical. : Reports discharge, from vagina that is yellow. 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 - Social history:: Smoking status: Patient denies any tobacco usage or history of. Screenin:48 Abuse screen: Denies threats or abuse. Denies injuries from another. Nutritional duncan screening: No deficits noted. Tuberculosis screening: No symptoms or risk factors identified. Fall Risk None identified. Assessment: 10:48 General: Appears in no apparent distress. Behavior is calm, cooperative. Pain: duncan Complains of pain in abdomen. GI: Reports Pain is 7 out of 10 on a pain scale. : Reports discharge, watery, white. Vital Signs: 10:23 BP 110 / 79; Pulse 92; Resp 17; Temp 98.3; Pulse Ox 96% on R/A; Weight 54.43 kg; Height ab2 5 ft. 4 in. (162.56 cm); Pain 5/10; 10:23 Body Mass Index 20.60 (54.43 kg, 162.56 cm) ab2 ED Course: 10:19 Patient arrived in ED. am2 10:25 Triage completed. ab2 10:26 Arm band placed on right wrist. ab2 10:27 Senia Pace RN is Primary Nurse. duncan 10:27 Jefferson Blair MD is Attending Physician. kdr 10:48 Patient has correct armband on for positive identification. Bed in low position. duncan 10:48 No provider procedures requiring assistance completed. Inserted saline lock: 20 gauge duncan in left antecubital area, using aseptic technique. 13:55 IV discontinued, intact, Pressure dressing applied. duncan Administered Medications: No medications were administered Outcome: 13:29 Discharge ordered by . kdr 13:55 Discharged to home ambulatory. duncan 13:55 Condition: good 13:55 Discharge instructions given to patient. 13:55 Patient left the ED. duncan Signatures: Jefferson Blair MD MD [facility] Sarahi Jackson am2 Senia Pace RN RN Ramesh Ruby ab2
[2021-06-14 14:22] VITALS: BP 110/79; TEMP 98.3; O2SAT 96
[2021-06-17 08:31] LABS: C.trachomatis RNA,TMA Not Detected (Not Detected)
== END 2021-06-14 13:55 | disposition home or self-care (01) ==
LOC: ER 10:15
DX: N89.8 Other specified noninflammatory disorders of vagina (principal); R10.2 Pelvic and perineal pain
CPT/HCPCS: 36415; 80048; 81003; 81025; 84702; 85025; 86900; 86901; 87210; 87490; 87590; 99283

== ENCOUNTER 2021-10-26 16:01 | Emergency (ER) | payer OTHER ==
--- OUTSIDE RECORDS SUMMARY | 2021-10-26 16:04 | XMS REPORT | Continuity of Care Document ---
:1990 Author Organization [facility] t Address [address] [place] [address] Care Team Providers Name Role Phone Asked, No Pcp Primary Care Physician Unavailable Tadeo Almanzar Attending Clinician Unavailable Raghavendra CRENSHAW, Srinivasan Hua Attending Clinician Tadeo Almanzar Admitting Clinician Unavailable Payers Payer Name Policy Type Policy Number Effective Date Expiration Date S ource Problems This patient has no known problems. Allergies, Adverse Reactions, Alerts Allergy Allergy Status Severity Reaction(s) Onset Inactive Treating Comm ents Source Name Type Date Date Clinician No Known DA Active U 2014-02 [facility] 0[facility]20 [facility] 00:00: [address] Social History Social Habit Start Date Stop Date Quantity Comments Source Alcohol intake 2019-12-26 2019-12-26 Current drinker [facility] 00:00:00 00:00:00 of alcohol Hospital (finding) Tobacco use and 2019-12-26 2019-12-26 Never used [facility] exposure 00:00:00 00:00:00 Hospital Sex Assigned At [birth year] [facility] 00:00:00 00:00:00 Hospital Smoking Status Start Date Stop Date Source Never smoker [facility] Medications Ordered Filled Start Stop Current Ordering Indication Dosage Frequency Signature Comments Components Source Medication Medication Date Date Medication? Clinician (SIG) Name Name No known 2019-02 No No known [facility] di medications 1-[address] 19[facility] No known No [facility] Vital Signs Vital Name Observation Time Observation Value Comments Source Respiratory rate 2019-12-27 02:26:00 16 /min [facility] Oxygen saturation in 2019-12-27 02:26:00 100 /min [facility] Arterial blood by Pulse oximetry Systolic blood 2019-12-27 02:26:00 109 mm[Hg] Method ist Hospital pressure Diastolic blood 2019-12-27 02:26:00 57 mm[Hg] [facility] dist Hospital pressure Heart rate 2019-12-27 02:26:00 90 /min [facility] Body temperature 2019-12-27 00:08:38 37.33 Kortney [facility] Procedures Procedure Date / Time Performed Performing Clinician Shayy e [id number] 2020-10-17 00:00:00 [facility]EL[facility]01 [facility] [id number] 2020-10-17 00:00:00 [facility] Encounters Start End Encounter Admission Attending Care Care Encounter Source Date/Time Date/Time Type Type Clinicians Facility Department ID 2020-10-27 Inpatient EL Almanzar, [facility] LD [id number] [facility] 10:13:[address] [facility] 2021-01-27 2021-01-27 Inpatient EL Almanzar, [facility] SURG [id number] [facility] 12:30:00 12:30:[address] [facility] 2021-01-17 2021-01-17 Inpatient EL Almanzar, [facility] SURG [id number] [facility] 12:30:00 12:30:[address] [facility] 2020-10-17 2020-10-18 Emergency EM Almanzar, [facility] OBPP [id number] [facility] 00:45:00 18:50:[address] [facility] 2020-08-18 2020-08-19 Emergency EM Almanzar, [facility] EDIL [id number] [facility] 22:57:00 00:19:[address] [facility] 2019-12-26 2019-12-26 Emergency Mabry, 1.2.840.1 [id number] [facility] 19:03:00 20:32:00 Srinivasan Hua [address] 3.430.2.7 Hospit a .3.026571 l .8 2019-12-26 2019-12-26 Travel 1.2.840.1 [id number] [id number] [facility] 00:00:00 00:00:[address] 3.430.2.7 0.2.7.3.698 Ho spita .3.627395 084.8 l .8 2016-09-29 2016-10-04 [facility] [id number] [facility] 00:00:00 00:00:00 [facility] Results Test Description Test Time Test Comments Results Result Comments Source HGB HCT 2020-10-18 10:51:00 Test Item Value Reference Range Interpretation Comme nts HEMOGLOBIN (test code = HGB) 7.9 G/DL 11.2-14.9 L HEMATOCRIT (test code = HCT) 26.7 % 33.2-43.5 L URINALYSIS [id number] 07:57:00 Test Item Value Reference Range Interpretation [...] = UACULT) URINE SPECIMEN TYPE CLEAN CATCHUA [id number] 07:57:00 Test Item Value Reference Range Interpretation [...] A YEASTU) URINE SPECIMEN TYPE CLEAN CATCHURINALYSIS [id number] 07:43:00 Test Item Value Reference Range Interpretation [...] = UACULT) URINE SPECIMEN TYPE CLEAN CATCHUA [id number] 07:43:00 Test Item Value Reference Range Interpretation Comments UA RBC (test code = RBCU) RBC/HPF 0-3 UA WBC (test code = XWBCU) WBC/HPF 0-5 UA EPITHELIAL CELLS (test code = EPI/HPF FEW EPIU) UA BACTERIA (test code = XBACU) NONE URINE SPECIMEN TYPE CLEAN CATCHURINALYSIS [id number] 07:43:00 Test Item Value Reference Range Interpretation [...] = UACULT) URINE SPECIMEN TYPE CLEAN CATCHUA [id number] 07:43:00 Test Item Value Reference Range Interpretation Comments UA RBC (test code = RBCU) RBC/HPF 0-3 UA WBC (test code = XWBCU) WBC/HPF 0-5 UA EPITHELIAL CELLS (test code = EPI/HPF FEW EPIU) UA BACTERIA (test code = XBACU) NONE URINE SPECIMEN TYPE CLEAN CATCHRAPID PLASMA [id number] 06:53:00 Test Item Value Reference Range Interpretation Comments RAPID PLASMA REAGIN (test code = NON REAC NON REAC RPR) AG HEPATITIS B [id number] 06:53:00 Test Item Value Reference Range Interpretation Comments AG HEPATITIS B SURFACE (test code = NEGATIVE NONREACTIVE HBSAG) HIV 12 AB [id number] 06:53:00 Test Item Value Reference Range Interpretation Comments HIV 1 2 COMBO AG/AB SCREEN AB/AG NON REACTIVE NONREACTIVE (test code = [id number]) CBC W/AUTO [id number] 03:45:00 Test Item Value Reference Range Interpretation [...] = 0.00 K/mm3 0.0-0.1 N NRBC#) DIFFERENTIAL [id number] 03:45:00 Test Item Value Reference Range Interpretation Comments RBC MORPHOLOGY REQUIRED (test code = ABNORMAL RBCM) ANISOCYTOSIS (test code = ANISO) SLIGHT NONE PLATELET ESTIMATE (test code = ADEQUATE ADEQUATE PLTEST) PLATELET MORPHOLOGY (test code = NORMAL NORMAL PLTMORPH) RAPID PLASMA [id number] 03:10:00 Test Item Value Reference Range Interpretation Comments RAPID PLASMA REAGIN (test code = RPR) NON REAC AG HEPATITIS B [id number] 03:10:00 Test Item Value Reference Range Interpretation Comments AG HEPATITIS B SURFACE (test code = NEGATIVE NONREACTIVE HBSAG) HIV 12 AB [id number] 03:10:00 Test Item Value Reference Range Interpretation Comments HIV 1 2 COMBO AG/AB SCREEN AB/AG NON REACTIVE NONREACTIVE (test code = [id number]) RAPID PLASMA [id number] 03:01:00 Test Item Value Reference Range Interpretation Comments RAPID PLASMA REAGIN (test code = RPR) NON REAC AG HEPATITIS B [id number] 03:01:00 Test Item Value Reference Range Interpretation Comments AG HEPATITIS B SURFACE (test code = NEGATIVE NONREACTIVE HBSAG) HIV 12 AB [id number] 03:01:00 Test Item Value Reference Range Interpretation Comments HIV 1 2 COMBO AG/AB SCREEN (test code = NONREACTIVE [id number]) COVID 19 Asymptomatic IH [id number] 02:27:00 Test Item Value Reference Range Interpretation Comments COVID 19 NEGATIVE Negative "Negative resul ts from Asymptomatic IH AG patients with symptom (test code = onset beyondfiv e days, COVNONPUIAG) should be treat ed as presumptive, andconfirmation with a molecular assay [...] virus (antigen) in the sample." CBC W/AUTO [id number] 02:12:00 Test Item Value Reference Range Interpretation [...] = 0.00 K/mm3 0.0-0.1 N NRBC#) DIFFERENTIAL [id number] 02:12:00 Test Item Value Reference Range Interpretation Comments RBC MORPHOLOGY REQUIRED (test code = RBCM) PLATELET ESTIMATE (test code = PLTEST) ADEQUATE PLATELET MORPHOLOGY (test code = NORMAL PLTMORPH) CBC W/AUTO [id number] 02:12:00 Test Item Value Reference Range Interpretation [...] = 0.00 K/mm3 0.0-0.1 N NRBC#) DIFFERENTIAL [id number] 02:12:00 Test Item Value Reference Range Interpretation Comments RBC MORPHOLOGY REQUIRED (test code = RBCM) PLATELET ESTIMATE (test code = PLTEST) ADEQUATE PLATELET MORPHOLOGY (test code = NORMAL PLTMORPH) - US FET BIO PH MI W/O [id number] 23:36:00 [facility] 1990 Sex: FPatient Name: HEATHER PARRISH Unit No: [id number] EXAMS: CPT CODE: [id number] FET BIO PH MI W/O NST 98999 AFTER HOURS SERVICE ON: 10/16/2020 11:35 PM Biophysical Profile Location Code M12 History: Cat 2 strip Technique: Limited obstetric pelvis ultrasound obtained for evaluation of biophysical profile using grayscale and color Doppler. FINDINGS: Breathing 2 Body Movement 2 Tone 2 DORIAN 2 Biophysical profile is 8 out of 8. Gestational age of 38 weeks, 3 days. DORIAN is 11.97 cm. heart rate is 136 beats per minute. Placenta is anterior. orientation is vertex. Cervical length is 2.2 cm. IMPRESSION: BPP score 8 out of 8. Short cervix measuring 2.2 cm. at 2336 Reported and signed by: Isaac Dow M.D. CC: Higinio Hernandez MD Technologist: DEMOND Newton(A,OB) Transcrpt Date/Tm/Trnsp: 10/16/2020 (2336) [id number] Orig Print D/T: S: 10/16/2020 (2609) [facility] NAME: SHIVANIHEATHERJAVAD LOVE [address] PHYS: [place] [address] : 1990 AGE: 29 SEX:F LOC: Z.EDIL PHONE #: [phone] EXAM DATE: 10/16/2020 STATUS: REG ER FAX #: [phone] RADIOLOGY NO: [id number] PAGE 1 Signed ReportAMNISURE (ROM) [id number] 23:59:00 Test Item Value Reference Range Interpretation Comments AMNISURE (ROM) TEST (test code = NON-RUPTURED NON-RUPTURE AMNI)
[2021-10-26 17:07] LABS: Urine Blood 3+ (Negative); Urine Glucose Negative (Negative); Urine Protein 2+ (Negative); Urine Specific Gravity >=1.030 (1.005-1.030); Urine pH 5.5 (5.0-7.0)
--- NOTE | 2021-10-26 17:20 | ER ---
Nurse's Notes [facility] Name: Marielle Jones Age: 30 yrs Sex: Female : 1990 Arrival Date: 10/26/2021 Time: 16:03 Bed 11 Private MD: Diagnosis: UTI/ Urinary tract infection, site not specified Presentation: 10/26 16:30 Chief complaint: Patient states: Itching x 3 days ago, pelvic pressure and mild burning jl7 with urination, denies foul odor, reports normal appearing discharge. Coronavirus screen: At this time, the client does not indicate any symptoms associated with coronavirus-19. Ebola Screen: No symptoms or risks identified at this time. Initial Sepsis Screen: Does the patient meet any 2 criteria? No. Patient's initial sepsis screen is negative. Does the patient have a suspected source of infection?. Risk Assessment: Do you want to hurt yourself or someone else? Patient reports no desire to harm self or others. Onset of symptoms was October 23, 2021. 16:30 Method Of Arrival: Ambulatory jl7 16:30 Acuity: CODY 4 jl7 Triage Assessment: 16:34 General: Appears in no apparent distress. uncomfortable, Behavior is calm, cooperative, jl7 appropriate for age. Pain: Complains of pain in pelvis. 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 - Social history:: Smoking status: Patient denies any tobacco usage or history of. Screenin:35 Abuse screen: Denies threats or abuse. Denies injuries from another. Nutritional hb screening: No deficits noted. Tuberculosis screening: No symptoms or risk factors identified. Fall Risk None identified. Assessment: 17:15 General: Appears in no apparent distress. Behavior is calm, cooperative. Pain: Pain hb currently is 3 out of 10 on a pain scale. Neuro: Level of Consciousness is awake, alert, obeys commands, Oriented to person, place, time, situation. Cardiovascular: Patient's skin is warm and dry. Respiratory: Respiratory effort is even, unlabored, Respiratory pattern is regular, symmetrical. GI: No signs and/or symptoms were reported involving the gastrointestinal system. : Reports burning with urination, pain with urination. EENT: No signs and/or symptoms were reported regarding the EENT system. Derm: Skin is pink, warm \T\ dry. Musculoskeletal: No signs and/or symptoms reported regarding the musculoskeletal system. Vital Signs: 16:30 BP 128 / 87; Pulse 87; Resp 17; Temp 98.6; Pulse Ox 99% ; Weight 55.34 kg; Height 5 ft. jl7 3 in. (160.02 cm); Pain 6/10; 16:30 Body Mass Index 21.61 (55.34 kg, 160.02 cm) jl7 ED Course: 16:03 Patient arrived in ED. rg4 16:31 Marcial Hubbard is PHCP. jl9 16:31 Cristhian Sims MD is Attending Physician. jl9 16:34 Triage completed. jl7 16:34 Arm band placed on right wrist. jl7 16:46 Caro Kaplan, RN is Primary Nurse. ss 17:35 Patient has correct armband on for positive identification. hb 17:36 No provider procedures requiring assistance completed. Patient did not have IV access hb during this emergency room visit. Administered Medications: No medications were administered Medication: 17:15 VIS not applicable for this client. hb Outcome: 17:19 Discharge ordered by . jl9 17:36 Discharged to home ambulatory. hb 17:36 Condition: stable 17:36 Discharge instructions given to patient, Instructed on discharge instructions, follow up and referral plans. medication usage, Demonstrated understanding of instructions, follow-up care, medications, Prescriptions given X 2. 17:37 Patient left the ED. hb Signatures: Caro Kaplan RN RN ss Baxter, Heather, RN RN hb Garcia, Rubi 4 Gaye Levin RN RN jl7 Linares, John jl9 Corrections: (The following items were deleted from the chart) 16:35 16:34 Allergies: No Known Allergies; 7 jl7
--- NOTE | 2021-10-26 17:20 | EDPHYS ---
Physician Documentation [facility] Name: Marielle Jones Age: 30 yrs Sex: Female : 1990 Arrival Date: 10/26/2021 Time: 16:03 Bed 11 Private MD: AMEYA Physician Cristhian Sims HPI: 10/26 16:41 This 30 yrs old Black Female presents to ER via Ambulatory with complaints of Vaginal jl9 Itching, Pain With Urination. 16:41 The patient presents with urinary symptoms. Onset: The symptoms/episode began/occurred jl9 3 day(s) ago. Modifying factors: The symptoms are alleviated by nothing, the symptoms are aggravated by nothing. Associated signs and symptoms: Pertinent positives: dysuria. Severity of symptoms: in the emergency department the symptoms a " 2" out of "10". The patient is sexually active. 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 - Social history:: Smoking status: Patient denies any tobacco usage or history of. ROS: 16:42 Positive for urinary symptoms, burning with urination, vaginal itching. jl9 16:42 Constitutional: Negative for fever, chills, and weight loss, Eyes: Negative for injury, pain, redness, and discharge, ENT: Negative for injury, pain, and discharge, Neck: Negative for injury, pain, and swelling, Cardiovascular: Negative for chest pain, palpitations, and edema, Respiratory: Negative for shortness of breath, cough, wheezing, and pleuritic chest pain, Abdomen/GI: Negative for abdominal pain, nausea, vomiting, diarrhea, and constipation, Back: Negative for injury and pain, MS/Extremity: Negative for injury and deformity, Skin: Negative for injury, rash, and discoloration, Neuro: Negative for headache, weakness, numbness, tingling, and seizure, Psych: Negative for depression, anxiety, suicide ideation, homicidal ideation, and hallucinations, Allergy/Immunology: Negative for hives, rash, and allergies, Endocrine: Negative for neck swelling, polydipsia, polyuria, polyphagia, and marked weight changes, Hematologic/Lymphatic: Negative for swollen nodes, abnormal bleeding, and unusual bruising. Exam: 16:42 Constitutional: This is a well developed, well nourished patient who is awake, alert, jl9 and in no acute distress. Head/Face: Normocephalic, atraumatic. Eyes: Pupils equal round and reactive to light, extra-ocular motions intact. Lids and lashes normal. Conjunctiva and sclera are non-icteric and not injected. Cornea within normal limits. Periorbital areas with no swelling, redness, or edema. ENT: Mucous membranes moist. Neck: Trachea midline, no thyromegaly or masses palpated, and no cervical lymphadenopathy. Supple, full range of motion without nuchal rigidity, or vertebral point tenderness. No Meningismus. Chest/axilla: Normal chest wall appearance and motion. Nontender with no deformity. No lesions are appreciated. Cardiovascular: Regular rate and rhythm with a normal S1 and S2. No gallops, murmurs, or rubs. Normal PMI, no JVD. No pulse deficits. Respiratory: Lungs have equal breath sounds bilaterally, clear to auscultation and percussion. No rales, rhonchi or wheezes noted. No increased work of breathing, no retractions or nasal flaring. Abdomen/GI: Soft, non-tender, with normal bowel sounds. No distension or tympany. No guarding or rebound. No evidence of tenderness throughout. Back: No spinal tenderness. No costovertebral tenderness. Full range of motion. Skin: Warm, dry with normal turgor. Normal color with no rashes, no lesions, and no evidence of cellulitis. MS/ Extremity: Pulses equal, no cyanosis. Neurovascular intact. Full, normal range of motion. Neuro: Awake and alert, GCS 15, oriented to person, place, time, and situation. Cranial nerves II-XII grossly intact. Motor strength 5/5 in all extremities. Sensory grossly intact. Cerebellar exam normal. Normal gait. Psych: Awake, alert, with orientation to person, place and time. Behavior, mood, and affect are within normal limits. Vital Signs: 16:30 BP 128 / 87; Pulse 87; Resp 17; Temp 98.6; Pulse Ox 99% ; Weight 55.34 kg; Height 5 ft. jl7 3 in. (160.02 cm); Pain 6/10; 16:30 Body Mass Index 21.61 (55.34 kg, 160.02 cm) jl7 MDM: 16:31 Patient medically screened. jl9 16:43 Data reviewed: vital signs, nurses notes. jl9 17:18 Counseling: I had a detailed discussion with the patient and/or guardian regarding: the jl9 historical points, exam findings, and any diagnostic results supporting the discharge/admit diagnosis, the need for outpatient follow up, to return to the emergency department if symptoms worsen or persist or if there are any questions or concerns that arise at home. 10/26 17:06 Order name: Urine Microscopic Only ss 10/26 17:07 Order name: Urine Dipstick-Ancillary; Complete Time: 17:18 [facility] 10/26 16:31 Order name: Urine Dipstick-Ancillary (obtain specimen); Complete Time: 17:17 9 10/26 17:26 Order name: Urine --Ancillary (enter results) eb Administered Medications: No medications were administered Disposition Summary: 10/26/21 17:19 Discharge Ordered Location: Home jl9 Condition: Stable jl9 Diagnosis - UTI/ Urinary tract infection, site not specified jl9 Followup: jl9 - With: Private Physician - When: 1 - 2 days - Reason: Recheck today's complaints, Continuance of care, Re-evaluation by your physician Discharge Instructions: - Discharge Summary Sheet jl9 - Urinary Tract Infection, Adult, Ketk-st-Zhlj jl9 Forms: - Medication Reconciliation Form jl9 - Thank You Letter jl9 - Antibiotic Education jl9 - Prescription Opioid Use jl9 Prescriptions: - Diflucan 150 mg Oral Tablet - take 1 tablet by ORAL route one time for 1 day; 1 tablet; Refills: 0, Product jl9 Selection Permitted - Macrobid 100 mg Oral Capsule - take 1 capsule by ORAL route every 12 hours for 10 days; 20 capsule; Refills: jl9 0, Product Selection Permitted Signatures: Dispatcher [employer] Gaye Collins RN RN jl7 Marcial Hubbard jl9 Corrections: (The following items were deleted from the chart) 16:35 16:34 Allergies: No Known Allergies; jl7 jl7
[2021-10-26 17:45] LABS: Urine Bacteria <20 /HPF (<20); Urine Mucus 4+ /HPF (None Seen); Urine RBC >50 /HPF (None Seen)
[2021-10-26 18:59] VITALS: BP 128/87; TEMP 98.6; O2SAT 99
== END 2021-10-26 17:37 | disposition home or self-care (01) ==
LOC: ER 16:01
DX: N39.0 Urinary tract infection, site not specified (principal); Z88.8 Allergy status to other drugs, medicaments and biological substances
CPT/HCPCS: 81003; 81015; 81025; 87086; 87088; 99282

== ENCOUNTER 2022-08-10 16:45 | Emergency (ER) | payer OTHER ==
--- OUTSIDE RECORDS SUMMARY | 2022-08-10 16:49 | XMS REPORT | Continuity of Care Document ---
:1990 Author Organization [facility] t Address [address] [facility]. [address] [place] [address] Care Team Providers Name Role Phone Asked, [...] DA Active U 2014-02 [facility] Allergie 0-20 [facility] 00:00: [address] Social History Social Habit Start Date Stop Date Quantity Comments Source Gender identity [facility] Sexual orientation [facility] History of Social 2022-04-22 2022-04-[address] function 00:00:00 00:00:00 Hospital Alcohol intake 2019-12-26 2019-12-26 Current drinker [facility] dist 00:00:00 00:00:00 of [facility] (finding) Tobacco use and 2018-09-18 2018-09-18 Smokeless [facility] exposure 00:00:00 00:00:00 tobacco non-user Hospital Sex Assigned At [birth year] [facility] 00:00:00 00:00:00 Hospital Smoking Status Start Date Stop Date Source Never smoked tobacco [facility] Medications Ordered Filled Start Stop Current Ordering Indication Dosage Frequency Signature Comments Components Source Medication Medication Date Date Medication? Clinician (SIG) Name Name No known 2019-02 No No known Meth[facility] di medications 1-[address] [facility] No known 2019-02 No No known Metho di medications 1-[address] 19[facility]11[facility] No known No [facility] Vital Signs Vital Name Observation Time Observation Value Comments Source Diastolic blood 2019-12-27 02:26:00 57 mm[Hg] [facility] pressure Heart rate 2019-12-27 02:26:00 90 /min [facility] Respiratory rate 2019-12-27 02:26:00 16 /min [facility] Oxygen saturation in 2019-12-27 02:26:00 100 /min [facility] Arterial blood by Pulse oximetry Systolic blood 2019-12-27 02:26:00 109 mm[Hg] [facility] pressure Body temperature 2019-12-27 00:08:38 37.33 Kortney [facility] Procedures Procedure Date / Time Performed Performing Clinician Iain katz [id number] 2020-10-17 00:00:00 TOREL.01 [facility] [id number] 2020-10-17 00:00:00 TOREL.01 [facility] Encounters Start End Encounter Admission Attending Care Care Encounter Source Date/Time Date/Time Type Type Clinicians Facility Department ID 2020-10-27 Inpatient EL Almanzar, [facility] LD [id number] [facility] 10:13:00 Tadeo 14 [facility] 2021-01-27 2021-01-27 Inpatient EL Almanzar, [facility] SURG [id number] [facility] 12:30:00 12:30:00 Tadeo 88 [facility] 2021-01-17 2021-01-17 Inpatient EL Almanzar, [facility] SURG [id number] [facility] 12:30:00 12:30:00 Tadeo 98 [facility] 2020-10-17 2020-10-18 Emergency EM Almanzar, [facility] OBPP [id number] [facility] 00:45:00 18:50:00 Tadeo 73 [facility] 2020-08-18 2020-08-19 Emergency EM KAREN Almanzar EDIL [id number] [facility] 22:57:00 00:19:00 Tadeo 44 [facility] 2019-12-26 2019-12-26 Emergency Mabry, 1.2.840.1 [id number] Methodi 19:03:00 20:32:00 [address] 3.430.2.7 Hospit a .3.610493 l .8 2019-12-26 2019-12-26 Travel 1.2.840.1 [id number] Methodi 00:00:00 00:00:[address] 3.430.2.7 0.2.7.3.698 Ho spita .3.971500 084.8 l .8 2016-09-29 2016-10-04 Outpatient [facility] [id number] [address] [place] [address] 00:00:00 00:00:00 [facility] Results Test Description Test Time Test Comments Results Result Comments Source HGB HCT 2020-10-18 10:51:00 Test Item Value Reference Range Interpretation Comme nts HEMOGLOBIN (test code = HGB) 7.9 G/DL 11.2-14.9 L HEMATOCRIT (test code = HCT) 26.7 % 33.2-43.5 L URINALYSIS [id number] 07:57:00 Test Item Value Reference Range Interpretation [...] = UACULT) URINE SPECIMEN TYPE CLEAN CATCHUA [id number] 07:57:00 Test Item Value Reference Range Interpretation [...] A YEASTU) URINE SPECIMEN TYPE CLEAN CATCHURINALYSIS [id number] 07:43:00 Test Item Value Reference Range Interpretation [...] = UACULT) URINE SPECIMEN TYPE CLEAN CATCHUA [id number] 07:43:00 Test Item Value Reference Range Interpretation Comments UA RBC (test code = RBCU) RBC/HPF 0-3 UA WBC (test code = XWBCU) WBC/HPF 0-5 UA EPITHELIAL CELLS (test code = EPI/HPF FEW EPIU) UA BACTERIA (test code = XBACU) NONE URINE SPECIMEN TYPE CLEAN CATCHURINALYSIS [id number] 07:43:00 Test Item Value Reference Range Interpretation [...] = UACULT) URINE SPECIMEN TYPE CLEAN CATCHUA [id number] 07:43:00 Test Item Value Reference Range Interpretation Comments UA RBC (test code = RBCU) RBC/HPF 0-3 UA WBC (test code = XWBCU) WBC/HPF 0-5 UA EPITHELIAL CELLS (test code = EPI/HPF FEW EPIU) UA BACTERIA (test code = XBACU) NONE URINE SPECIMEN TYPE CLEAN CATCHRAPID PLASMA [id number] 06:53:00 Test Item Value Reference Range Interpretation Comments RAPID PLASMA REAGIN (test code = NON REAC NON REAC RPR) AG HEPATITIS B [id number] 06:53:00 Test Item Value Reference Range Interpretation Comments AG HEPATITIS B SURFACE (test code = NEGATIVE NONREACTIVE HBSAG) HIV 12 AB [id number] 06:53:00 Test Item Value Reference Range Interpretation Comments HIV 1 2 COMBO AG/AB SCREEN AB/AG NON REACTIVE NONREACTIVE (test code = [id number]) DIFFERENTIAL [id number] 03:45:00 Test Item Value Reference Range Interpretation Comments RBC MORPHOLOGY REQUIRED (test code = ABNORMAL RBCM) ANISOCYTOSIS (test code = ANISO) SLIGHT NONE PLATELET ESTIMATE (test code = ADEQUATE ADEQUATE PLTEST) PLATELET MORPHOLOGY (test code = NORMAL NORMAL PLTMORPH) CBC W/AUTO [id number] 03:45:00 Test Item Value Reference Range Interpretation [...] code = 0.00 K/mm3 0.0-0.1 N NRBC#) RAPID PLASMA [id number] 03:10:00 Test Item Value Reference Range Interpretation Comments RAPID PLASMA REAGIN (test code = RPR) NON REAC AG HEPATITIS B [id number] 03:10:00 Test Item Value Reference Range Interpretation Comments AG HEPATITIS B SURFACE (test code = NEGATIVE NONREACTIVE HBSAG) HIV 12 AB [id number] 03:10:00 Test Item Value Reference Range Interpretation Comments HIV 1 2 COMBO AG/AB SCREEN AB/AG NON REACTIVE NONREACTIVE (test code = [id number]) RAPID PLASMA [id number] 03:01:00 Test Item Value Reference Range Interpretation Comments RAPID PLASMA REAGIN (test code = RPR) NON REAC AG HEPATITIS B [id number] 03:01:00 Test Item Value Reference Range Interpretation Comments AG HEPATITIS B SURFACE (test code = NEGATIVE NONREACTIVE HBSAG) HIV 12 AB [id number] 03:01:00 Test Item Value Reference Range Interpretation Comments HIV 1 2 COMBO AG/AB SCREEN (test code = NONREACTIVE [id number]) COVID 19 Asymptomatic IH [id number] 02:27:00 Test Item Value Reference Range Interpretation [...] virus (antigen) in the sample." CBC W/AUTO [id number] 02:12:00 Test Item Value Reference Range Interpretation [...] = 0.00 K/mm3 0.0-0.1 N NRBC#) DIFFERENTIAL [id number] 02:12:00 Test Item Value Reference Range Interpretation Comments RBC MORPHOLOGY REQUIRED (test code = RBCM) PLATELET ESTIMATE (test code = PLTEST) ADEQUATE PLATELET MORPHOLOGY (test code = NORMAL PLTMORPH) CBC W/AUTO [id number] 02:12:00 Test Item Value Reference Range Interpretation [...] = 0.00 K/mm3 0.0-0.1 N NRBC#) DIFFERENTIAL [id number] 02:12:00 Test Item Value Reference Range Interpretation Comments RBC MORPHOLOGY REQUIRED (test code = RBCM) PLATELET ESTIMATE (test code = PLTEST) ADEQUATE PLATELET MORPHOLOGY (test code = NORMAL PLTMORPH) - US FET BIO PH KS W/O [id number] 23:36:00 [facility] 1990 Sex: FPatient Name: HEATHER PARRISH Unit No: [id number] EXAMS: CPT CODE: [id number] US FET BIO PH KS W/O NST 72286 AFTER HOURS SERVICE ON: 10/16/2020 11:35 PM Biophysical Profile Location Code M12 History: Cat 2 strip Technique: Limited obstetric pelvis ultrasound obtained for evaluation of biophysical profile using grayscale and color Doppler. FINDINGS: Breathing 2 Body Movement 2 Tone2 DORIAN 2 Biophysical profile is 8 out [...] MD Technologist: DEMOND Newton(A,OB) Transcrpt Date/Tm/Trnsp: 10/16/2020 (2466) t.[email or web address] Orig Print D/T: S: 10/16/2020 (3044) [facility] NAME: HEATHER PARRISH [address] PHYS: [place] [address] : 1990 AGE: 29 SEX:F LOC: .EDIL PHONE #: [phone] EXAM DATE: 10/16/2020 STATUS: REG ER FAX #: [phone] RADIOLOGY NO: [id number] PAGE 1 Signed ReportAMNISURE (ROM) [id number] 23:59:00 Test Item Value Reference Range Interpretation Comments AMNISURE (ROM) TEST (test code = NON-RUPTURED NON-RUPTURE AMNI) Notes Date/Time Note Provider Source 2020-10-18 12:52:00-00:00 [facility] ([facility]) OB Postpart Progr Note REPORT#:[id number] REPORT STATUS: Signed DATE:10/18/20 TIME: 1252 PATIENT: HEATHER PARRISH UNIT #: [id number] ROOM/BED: [address] : [birth year] AGE: 29 SEX: F ATTEND: Loida Almanzar DO ADM AUTHOR: Tadeo Almanzar DO * ALL edits or amendments must be made on the maddy Be[employer]/computer document * Subjective Subjective Status/Day: post (day 1) Patient reports: Patient reports: Yes no complaints, Yes normal lochia, Yes pain management effective, Yes tolerating po well, Yes voiding well, Ye s voiding without pain, Yes tolerating ambulation, Yes flatus Comments: Pt doing well. No complaints VSS Afebrile Voiding well. Lungs CTA CVS RRR ABD soft, NT, round,fundus firm Ext Nt, +1 pedal edema Lochia mild Hgb down from 9.2 to 7.9 due to acute blood loss anemia due to acute blood loss Plan: Reviewed /op care instructions a nd ss of complications. Discussed anemia and associated risks. Rx iron. Electronically Signed by Tadeo Almanzar DO on 05/05 at 1253 RPT #:[id number] END OF REPORT 2020-10-17 10:29:00-00:00 [facility] ([facility]) OB Delivery Note REPORT#:[id number] REPORT STATUS: Signed DATE:10/17/20 TIME: 1029 PATIENT: HEATHER PARRISH UNIT #: [id number] [facility] AGE: 29 SEX: F ATTEND: Loida Almanzar DO ADM AUTHOR: Tadeo Almanzar DO * ALL edits or amendments must be made on the Beam.[employer]/computer document * OB Delivery Nursing Documentation Review Nursing data: The data set between the solid lines has been im ported from nursing documentation. Any exceptions have been noted be low under Provider comments. _ ROM date: ROM time: Membranes rupture method: AROM Amniotic fluid color: Clear Amniotic fluid amount: Steroids prior to arrival: Antibiotic prophylaxis given: Post hemorrhage risk score: Low Risk for Hemorrhage. Delivery date infant A: Delivery time A: Birthweight (gm) A: Weight (lb) infant A: Weight (oz) A: Gender infant A: 1 minute A: 5 minutes A: 10 minutes A: Cord pH obtained A: Vacuum time A: Vacuum # pulls A: Vacuum # popoffs infant A: QBL at delivery: __ Provider comments on imported nursing data: [] Pre-delivery [place] evaluation at delivery: NRP certified pe rsmelbael Baby A Information Baby A information Delivery date: 10/17/20 Delivery time: 1011 status: live born Wt of baby (lbs/oz): 06/27 Gender: female 1 minute: 8 5 minutes: 9 Presentation: vertex ABG details Baby A Cord blood gases: not collected Nuchal cord Baby A Nuchal cord: yes (loose and reduced) Vaginal Delivery Vaginal delivery: Labor: spontaneous Medications/Devices used: oxytocin Vaginal delivery: spontaneous Amniotic fluid: clear Anesthesia type: epidural anesthesia Episiotomy: none Placenta: spontaneous, intact Post delivery meds used: oxytocin Count: correct Vaginal packing: No Mother's condition: mother stable 's condition: infant stable in room Lacerations: Perineal laceration(s): None Extraction details OVD performed: no Shoulder dystocia present: no Delivery Additional comments: Called at 1009 for delivery with delivery at 101 1 by resident. Hospitalist arrived same time as I did. Blood Loss/Details Blood loss at delivery: no more than expected QBL at delivery (ml's): 40 Electronically Signed by Tadeo Almanzar DO on 04/07 at 1035 RPT #:[id number] END OF REPORT 2020-10-17 10:25:00-00:00 [facility] ([facility]) History Physical - Adult REPORT#:[id number] REPORT STATUS: Signed DATE:10/17/20 TIME: 1024 PATIENT: HEATHER PARRISH UNIT #: [id number] ROOM/BED: L04-A : 92 AGE: 29 SEX: F ATTEND: Loida Almanzar DO ADM AUTHOR: Tadeo Almanzar DO * ALL edits or amendments must be made on the RIVS/1000memories document * History of Present Illness Free Text HPI Notes Free Text HPI Notes: H P already in chart by Dr. Hernandez. Pt seen at 0840 and was 9cm/100/+1, VTX AROM'd e arlier with clear fluid FHT cat 1 Pt progressing spontaneously. Continue current m anagement order given. History Medication/Allergy-Vaccine Hx Allergies: Coded Allergies: No Known Allergies (12/04/14) Electronically Signed by Tadeo Almanzar DO on 04/07 at 1029 RPT #:[id number] END OF REPORT 2020-10-16 20:47:00-00:00 [facility] ([facility]) EDIL Evaluation Note REPORT#:[id number] REPORT STATUS: Signed DATE:10/16/20 TIME: 2046 PATIENT: HEATHER PARRISH UNIT #: [id number] ROOM/BED: : 92 AGE: 29 SEX: F ATTEND: Loida Almanzar DO ADM AUTHOR: Higinio Hernandez MD R2 * ALL edits or amendments must be made on the RIVS/1000memories document * EDIL History Chief complaint: uterine contractions, vaginal s potting HPI: Pt is a at 38.3 presenting for i rregular uterine contractions and loss of mucus plug earlier today. Pt states she has contractions every 5 minutes with mild pain. Pt denies any vag inal bleeding or discharge or LOF. Pt endorses good movement. Pt complicated by anem ia for which she is on iron pills. Pt has not needed a blood or iron transfusion but does not know her hgb level. Pt has good care with Dr. Almanzar and last saw him in clinic last week however was not checked. Pt first baby was delivered vaginally. history: : 2 Term: 1 : 0 Abortus: 0 Living children: 1 Current : EDC: 10/27/20 EGA (weeks/days): 38 weeks (3days) Conditions of : anemia Past medical history: asthma (not on inhaler) Past surgical history: denies PSH Social history: no alcohol use, no tobacco use, no drug use Family history FATHER Family History: Unknown MOTHER Family History: Unknown Allergies Coded Allergies: No Known Allergies (12/04/14) Review of Systems Constitutional: Denies: chills, fatigue, fev er, generalized weakness, lethargy, malaise, recent wt loss. Respiratory: Denies: PALACIO (dyspnea on exertion), hemoptysis, n on productive cough, parox nocturnal dyspnea, pleurisy, pleuritic pain, pneumonia, productive cough (sputum ), SOB, wheezing. Cardiovascular: Denies: chest pain, PALACIO (dyspnea on exer tion), edema, orthopnea, palpitations, parox nocturnal dyspnea. GI: Denies: abdominal pain, anorexia, constipation, diarrhea, dysphagia, GERD, hematemesis, hematochezia, h iatal hernia, melena, nausea, rectal pain, vomiting. : Reports: pelvic pain, , other (vaginal s potting). Denies: dysuria, flank pain, frequency, hemat uria, nocturia, urgency, urinary retention, vaginal bleeding, vaginal discharge. Neuro: Denies: headache, vision change. Objective General VS: PATIENT WEIGHT: Weight (lb): 136 Weight (oz): Weight (kg): 61.485735 Physical Exam HEENT: normocephalic w/o injury, pupils equal, p upils reactive to light Cardiac: regular rate and rhythm Lungs: unlabored breathing Breasts: deferred Neuro: Exam: alert, oriented x3, normal speech Abdomen: gravid, soft, no abnormal tenderness, n o guarding, no rebound tenderness Uterine activity: Monitor: toco Frequency (description): irritability, irregula r Intensity: mild Pelvic exam: Pelvis clinically adequate: yes, inlet appears appropriate Vulvar lesions: none, no evidence herpetic les Vagina: normal Exam: soft, non-tender Cervical/ exam: Dilatation (cm): 2 Effacement (%): 50 station: - 3 FHR evaluation: Baseline: 140 bpm Variability: moderate 6-25 bpm Accelerations: 15 X 15 Decelerations: none FHR category: category 1 Membranes: Membranes: Intact Lower extremities: Edema: none Results Findings/Data: Recent Impressions: ULTRASOUND - US FET BIO PH KS W/O NST 10/17 2303 Report Impression - Status: SIGNED Entered: 10/16/2020 2066 IMPRESSION: BPP score 8 out of 8. Short cervix measuring 2.2 cm. Impression By: Sandoval - Jessika Parmar Results: vital signs stable Diagnosis, Assessment Plan Diagnosis, Assessment Plan Free Text A P: Pt is a 29 y/o at 38.2 presenting for la bor rule out 38 week -SVE: 2.5/50/-3 recheck in two hours was 3/50/-3 -Cervix is soft and posterior -toco: irregular q5-8 minutes with mild to no pa in -Membranes intact -oral and IV hydration due to cat 2 strip. -Baseline is 150 with moderate variability. Init ially, strip was cat 1 with accelerations, however it co nverted to a cat 2 tracing with moderate variability , variable decelerations. Contractions increased to q3-4 minutes. -BPP 8/8 -DORIAN 12 -Dr. Worley spoke with Dr. Yasmeen dumas and decided to monitor for another two hours with IV hydration. -Pts contractions continued at q3 minutes. -Cat 1 FHT following 1L bolus with IV hydration -Repeat SVE was 4/60/-3. Pt is in latent labor. Pt had CAT1 strip overall with random variable and early decelerations. -Discussed with Dr. Almanzar and will admit for la tent labor with expectant management. Dispo: -Admit to L/D for expectant management -Plan discussed with Dr. Worley and Dr. Almanzar Assessment/Impression: reassuring status, membranes intact, normal FHR pattern, reactive NST, no evidence of infection, no active bleeding Plan: admit to inpatient, delivery, IVF, begin a ntibiotic therapy, surveillance Plan discussed with: patient, family, collaborat bismark CRENSHAW, nurse Electronically Signed by Higinio Hernandez MD R2 o n 10/17/20 at 0052 RPT #:[id number] END OF REPORT 2020-10-16 20:47:00-00:00 [facility] ([facility]) EDIL Evaluation Note REPORT#:[id number] REPORT STATUS: Signed DATE:10/16/20 TIME: 2046 PATIENT: HEATHER PARRISH UNIT #: [id number] ROOM/BED: [address] : 92 AGE: 29 SEX: F ATTEND: Loida Almanzar DO ADM AUTHOR: Higinio Hernandez MD R2 * ALL edits or amendments must be made on the RIVS/computer document * Higinio Hernandez 10/16/202046: EDIL History Chief complaint: uterine contractions, vaginal s potting HPI: Pt is a at 38.3 presenting for i rregular uterine contractions and loss of mucus plug earlier today. Pt states she has contractions every 5 minutes with mild pain. Pt denies any vag inal bleeding or discharge or LOF. Pt endorses good movement. Pt complicated by anem ia for which she is on iron pills. Pt has not needed a blood or iron transfusion but does not know her hgb level. Pt has good care with Dr. Almanzar and last saw him in clinic last week however was not checked. Pt first baby was delivered vaginally. history: : 2 Term: 1 : 0 Abortus: 0 Living children: 1 Current : EDC: 10/27/20 EGA (weeks/days): 38 weeks (3days) Conditions of : anemia Past medical history: asthma (not on inhaler) Past surgical history: denies PSH Social history: no alcohol use, no tobacco use, no drug use Family history FATHER Family History: Unknown MOTHER Family History: Unknown Allergies Coded Allergies: No Known Allergies (12/04/14) Review of Systems Constitutional: Denies: chills, fatigue, fev er, generalized weakness, lethargy, malaise, recent wt loss. Respiratory: Denies: PALACIO (dyspnea on exertion), hemoptysis, n on productive cough, parox nocturnal dyspnea, pleurisy, pleuritic pain, pneumonia, productive cough (sputum ), SOB, wheezing. Cardiovascular: Denies: chest pain, PALACIO (dyspnea on exer tion), edema, orthopnea, palpitations, parox nocturnal dyspnea. GI: Denies: abdominal pain, anorexia, constipation, diarrhea, dysphagia, GERD, hematemesis, hematochezia, h iatal hernia, melena, nausea, rectal pain, vomiting. : Reports: pelvic pain, , other (vaginal s potting). Denies: dysuria, flank pain, frequency, hemat uria, nocturia, urgency, urinary retention, vaginal bleeding, vaginal discharge. Neuro: Denies: headache, vision change. Objective General VS: PATIENT WEIGHT: Weight (lb): 136 Weight (oz): Weight (kg): 61.896243 Physical Exam HEENT: normocephalic w/o injury, pupils equal, p upils reactive to light Cardiac: regular rate and rhythm Lungs: unlabored breathing Breasts: deferred Neuro: Exam: alert, oriented x3, normal speech Abdomen: gravid, soft, no abnormal tenderness, n o guarding, no rebound tenderness Uterine activity: Monitor: toco Frequency (description): irritability, irregula r Intensity: mild Pelvic exam: Pelvis clinically adequate: yes, inlet appears appropriate Vulvar lesions: none, no evidence herpetic les Vagina: normal Exam: soft, non-tender Cervical/ exam: Dilatation (cm): 2 Effacement (%): 50 station: - 3 FHR evaluation: Baseline: 140 bpm Variability: moderate 6-25 bpm Accelerations: 15 X 15 Decelerations: none FHR category: category 1 Membranes: Membranes: Intact Lower extremities: Edema: none Results Findings/Data: Recent Impressions: ULTRASOUND - US FET BIO PH KS W/O NST 10/161 Report Impression - Status: SIGNED Entered: 10/16/2020 8544 IMPRESSION: BPP score 8 out of 8. Short cervix measuring 2.2 cm. Impression By: Sandoval - Jessika Parmar Results: vital signs stable Diagnosis, Assessment Plan Diagnosis, Assessment Plan Free Text A P: Pt is a 29 y/o at 38.2 presenting for la bor rule out 38 week -SVE: 2.5/50/-3 recheck in two hours was 3/50/-3 -Cervix is soft and posterior -toco: irregular q5-8 minutes with mild to no pa in -Membranes intact -oral and IV hydration due to cat 2 strip. -Baseline is 150 with moderate variability. Init ially, strip was cat 1 with accelerations, however it co nverted to a cat 2 tracing with moderate variability , variable decelerations. Contractions increased to q3-4 minutes. -BPP 8/8 -DORIAN 12 -Dr. Worley spoke with Dr. Yasmeen dumas and decided to monitor for another two hours with IV hydration. -Pts contractions continued at q3 minutes. -Cat 1 FHT following 1L bolus with IV hydration -Repeat SVE was 4/60/-3. Pt is in latent labor. Pt had CAT1 strip overall with random variable and early decelerations. -Discussed with Dr. Almanzar and will admit for la tent labor with expectant management. Dispo: -Admit to L/D for expectant management -Plan discussed with Dr. Worley and Dr. Almanzar Assessment/Impression: reassuring status, membranes intact, normal FHR pattern, reactive NST, no evidence of infection, no active bleeding Plan: admit to inpatient, delivery, IVF, begin a ntibiotic therapy, surveillance Plan discussed with: patient, family, collaborat bismark CRENSHAW, nurse Samina Worley 10/17/20 0611: Attestations Physician Attestation Agree w/findings plan: I have seen and examined the patient. I agree with documentation and plan by Dr. Hernandez. 29 yo at 38w3d presenting for l oss of mucus plug and contractions. In OB triage, cervix changed from 2/50/-3 to 4 cm by same examiner. Initially pt also with cat II tracing, with non-repetitive variable and episodic decel. FHT's subsequently cat I. Pt admitted to [facility]. D/w her private OBGYN, Dr. Almanzar. Electronically Signed by Higinio Hernandez MD R2 o n 10/17/20 at 0052 Electronically Signed by Samina Worley MD on 1 at 0613 RPT #:[id number] END OF REPORT 2020-08-18 23:40:00-00:00 [facility] ([facility]) EDIL Evaluation Note REPORT#:[id number] REPORT STATUS: Signed DATE:08/18/20 TIME: 2339 PATIENT: HEATHER PARRISH UNIT #: [id number] ROOM/BED: : 92 AGE: 29 SEX: F ATTEND: Mookie Almanzar is DO ADM AUTHOR: Rocio King DO R 2 * ALL edits or amendments must be made on the el ectronic/computer document * Rocio King 08/18/20 2340: EDIL History Chief complaint: suspected ruptured memb HPI: 29 y/o at 30 weeks ( [place] 10/27/20) with PMhx of mild anemia and childhood asthma presents to EDIL for suspected leakage of fluid. Patient states that around 1600 today she looked down at her underwe ar and saw a small pool of fluid. She saw it expand twi ce and is concerned that her water broke. Denies DFM , contractions, or DFM. history: : 2 Term: 1 : 0 Abortus: 0 Living children: 1 Previous : none Current : EDC: 10/27/20 EGA (weeks/days): 30 weeks Conditions of : anemia Past medical history: asthma Past surgical history: denies PSH Social history: no alcohol use, no tobacco use, no drug use Family history FATHER Family History: Unknown MOTHER Family History: Unknown Allergies Coded Allergies: No Known Allergies (12/04/14) Review of Systems Constitutional: Denies: chills, fatigue, fever. Respiratory: Denies: SOB, wheezing. Cardiovascular: Denies: chest pain, palpitations. GI: Denies: abdominal pain, nausea, vomiting. : Reports: vaginal discharge. Denies: dysuria, melani quency, vaginal bleeding. Neuro: Denies: headache, vision change. Objective General VS: BP 111/69 HR 95 PATIENT WEIGHT: Weight (lb): 137 Weight (oz): Weight (kg): 62.069774 Physical Exam Lungs: unlabored breathing Neuro: Exam: alert, oriented x3, normal speech Abdomen: gravid, soft, no abnormal tenderness Uterine activity: Monitor: toco Frequency (description): none Cervical/ exam: Dilatation (cm): 0 - closed FHR evaluation: Baseline: 135 bpm Variability: moderate 6-25 bpm Accelerations: 15 X 15 Decelerations: none Membranes: Membranes: Intact Results Findings/Data: Laboratory Tests: 08/18 2333 Other Body Source [place] Other Info (NON - RUPTURE) NON-RUPTUR ED Diagnosis, Assessment Plan Diagnosis, Assessment Plan Free Text A P: 29 y/o at 30 weeks ( [place] 10/27/20) with PMhx of mild anemia and childhood asthma presents to EDIL for suspected leakage of fluid. 1. Suspected ROM - No pooling on speculum exam - Amnisure -non-ruptured - Bala: No contractions - Cervix visually closed 2. well-being - FHT reassuring for gestational age Dispo: Reviewed EDIL precaut ions with patient. She has a follow up appt with Dr Almanzar on 08/30/20. Assessment/Impression: reassuring status Plan: discharge home Plan discussed with: patient, parent, collaborat ing Mg Way 08/19/20 0536: Attestations Physician Attestation Agree w/findings plan: Seen and agree with the findings and plan as doc umented by Dr. King. at 0043 Electronically Signed by Mg Norwood MD on 0 08/19/20 at 0538 RPT #:[id number] END OF REPORT 2020-08-18 23:40:00-00:00 [facility] ([facility]) EDIL Evaluation Note REPORT#:[id number] REPORT STATUS: Signed DATE:08/18/20 TIME: 2339 PATIENT: HEATHER PARRISH UNIT #: [id number] ROOM/BED: : 92 AGE: 29 SEX: F ATTEND: Loida Almanzar DO ADM AUTHOR: Rocio King DO R 2 * ALL edits or amendments must be made on the el [email or web address]/computer document * EDIL History Chief complaint: suspected ruptured memb HPI: 29 y/o at 30 weeks ( [place] 10/27/20) with PMhx of mild anemia and childhood asthma presents to EDIL for suspected leakage of fluid. Patient states that around 1600 today she looked down at her underwe ar and saw a small pool of fluid. She saw it expand twi ce and is concerned that her water broke. Denies DFM , contractions, or DFM. history: : 2 Term: 1 : 0 Abortus: 0 Living children: 1 Previous : none Current : EDC: 10/27/20 EGA (weeks/days): 30 weeks Conditions of : anemia Past medical history: asthma Past surgical history: denies PSH Social history: no alcohol use, no tobacco use, no drug use Family history FATHER Family History: Unknown MOTHER Family History: Unknown Allergies Coded Allergies: No Known Allergies (12/04/14) Review of Systems Constitutional: Denies: chills, fatigue, fever. Respiratory: Denies: SOB, wheezing. Cardiovascular: Denies: chest pain, palpitations. GI: Denies: abdominal pain, nausea, vomiting. : Reports: vaginal discharge. Denies: dysuria, melani quency, vaginal bleeding. Neuro: Denies: headache, vision change. Objective General VS: BP 111/69 HR 95 PATIENT WEIGHT: Weight (lb): 137 Weight (oz): Weight (kg): 62.839649 Physical Exam Lungs: unlabored breathing Neuro: Exam: alert, oriented x3, normal speech Abdomen: gravid, soft, no abnormal tenderness Uterine activity: Monitor: toco Frequency (description): none Cervical/ exam: Dilatation (cm): 0 - closed FHR evaluation: Baseline: 135 bpm Variability: moderate 6-25 bpm Accelerations: 15 X 15 Decelerations: none Membranes: Membranes: Intact Results Findings/Data: Laboratory Tests: 08/18 2333 Other Body Source [place] Other Info (NON - RUPTURE) NON-RUPTUR ED Diagnosis, Assessment Plan Diagnosis, Assessment Plan Free Text A P: 29 y/o at 30 weeks ( [place] 10/27/20) with PMhx of mild anemia and childhood asthma presents to EDIL for suspected leakage of fluid. 1. Suspected ROM - No pooling on speculum exam - Amnisure -non-ruptured - Bala: No contractions - Cervix visually closed 2. well-being - FHT reassuring for gestational age Dispo: Reviewed EDIL precaut ions with patient. She has a follow up appt with Dr Almanzar on 08/30/20. Assessment/Impression: reassuring status Plan: discharge home Plan discussed with: patient, parent, collaborat bismark CRENSHAW at 0043 RPT #:[id number] END OF REPORT 2020-08-18 23:40:00-00:00 [facility] ([facility]) EDIL Evaluation Note REPORT#:[id number] REPORT STATUS: Signed DATE:08/18/20 TIME: 2339 PATIENT: HEATHER PARRISH UNIT #: [id number] ROOM/BED: : 92 AGE: 29 SEX: F ATTEND: Loida Almanzar DO ADM AUTHOR: Rocio King DO R 2 * ALL edits or amendments must be made on the el [email or web address] document * Rocio King 08/18/20 2340: EDIL History Chief complaint: suspected ruptured memb HPI: 29 y/o at 30 weeks ( [place] 10/27/20) with PMhx of mild anemia and childhood asthma presents to EDIL for suspected leakage of fluid. Patient states that around 1600 today she looked down at her underwe ar and saw a small pool of fluid. She saw it expand twi ce and is concerned that her water broke. Denies DFM , contractions, or DFM. history: : 2 Term: 1 : 0 Abortus: 0 Living children: 1 Previous : none Current : EDC: 10/27/20 EGA (weeks/days): 30 weeks Conditions of : anemia Past medical history: asthma Past surgical history: denies PSH Social history: no alcohol use, no tobacco use, no drug use Family history FATHER Family History: Unknown MOTHER Family History: Unknown Allergies Coded Allergies: No Known Allergies (12/04/14) Review of Systems Constitutional: Denies: chills, fatigue, fever. Respiratory: Denies: SOB, wheezing. Cardiovascular: Denies: chest pain, palpitations. GI: Denies: abdominal pain, nausea, vomiting. : Reports: vaginal discharge. Denies: dysuria, melani quency, vaginal bleeding. Neuro: Denies: headache, vision change. Objective General VS: BP 111/69 HR 95 PATIENT WEIGHT: Weight (lb): 137 Weight (oz): Weight (kg): 62.303085 Physical Exam Lungs: unlabored breathing Neuro: Exam: alert, oriented x3, normal speech Abdomen: gravid, soft, no abnormal tenderness Uterine activity: Monitor: toco Frequency (description): none Cervical/ exam: Dilatation (cm): 0 - closed FHR evaluation: Baseline: 135 bpm Variability: moderate 6-25 bpm Accelerations: 15 X 15 Decelerations: none Membranes: Membranes: Intact Results Findings/Data: Laboratory Tests: 08/18 2333 Other Body Source [place] Other Info (NON - RUPTURE) NON-RUPTUR ED Diagnosis, Assessment Plan Diagnosis, Assessment Plan Free Text A P: 29 y/o at 30 weeks ( [place] 10/27/20) with PMhx of mild anemia and childhood asthma presents to EDIL for suspected leakage of fluid. 1. Suspected ROM - No pooling on speculum exam - Amnisure -non-ruptured - Bala: No contractions - Cervix visually closed 2. well-being - FHT reassuring for gestational age Dispo: Reviewed EDIL precaut ions with patient. She has a follow up appt with Dr Almanzar on 08/30/20. Assessment/Impression: reassuring status Plan: discharge home Plan discussed with: patient, parent, collaborat ing Mg Way 08/19/20 0536: Attestations Physician Attestation Agree w/findings plan: Seen and agree with the findings and plan as doc umented by Dr. King. at 0043 RPT #:[id number] END OF REPORT
[2022-08-10 17:29] LABS: Specific Gravity > 1.030 (1.005-1.030)
[2022-08-10 17:33] LABS: Specific Gravity > 1.030 (1.005-1.030); Urine Bacteria <20 /HPF (<20); Urine Bilirubin NEGATIVE (Negative); Urine Blood Negative (Negative); Urine Clarity Extremely Turbid (Clear); Urine Color Yellow (Yellow); Urine Glucose NEGATIVE (Negative); Urine Mucus 4+ /HPF (None Seen); Urine Protein 1+ (Negative); Urine Urobilinogen Normal (Normal)
[2022-08-10 17:56] LABS: Absolute Lymphocytes (CBC) 1.7 K/uL (0.7-4.9); Lymphocytes % 31.8 % (15.3-44.8); MCV 81.5 fL (80-100); MPV 6.5 fL (7.6-11.3); RBC Red Blood Cell Count 4.04 M/uL (3.86-4.86)
[2022-08-10 18:12] LABS: Albumin 3.1 g/dL (3.4-5.0); Bilirubin Total 0.6 mg/dL (0.2-1.0); Potassium 3.6 mEq/L (3.5-5.1); Protein, Total 7.9 g/dL (6.4-8.2)
--- NOTE | 2022-08-10 19:32 | RAD REPORT ---
EXAM DESCRIPTION: US - Transvaginal Study Probe - 08/10/2022 7:19 pm CLINICAL HISTORY: Pelvic pain COMPARISON: 2018 FINDINGS: The uterus measures 9 x 5 x 6 cm. A fibroid is not seen. The endometrial stripe measures The ovaries are normal in size and echotexture. The right and left adnexa unremarkable No significant free fluid is seen. IMPRESSION: Unremarkable pelvic ultrasound
--- NOTE | 2022-08-10 19:43 | EDPHYS ---
Physician Documentation [facility] Name: Briana Jones Age: 31 yrs Sex: Female : 1990 Arrival Date: 08/10/2022 Time: 16:45 Bed 19 Private MD: ED Physician Rick Willard HPI: 08/10 17:20 This 31 yrs old Black Female presents to ER via Ambulatory with complaints of Vaginal cp Bleeding, Vaginal Itching, Vaginal Discharge. 17:20 The patient presents with vaginal discharge, that is purulent discharge, vaginal pain cp and noticed bleeding today with discharge. Onset: The symptoms/episode began/occurred about 1 week ago. Associated signs and symptoms: Pertinent negatives: cramping, diarrhea, dysuria, fever, hematuria, vomiting. The patient is sexually active, reportedly has a single partner, does not use protection during intercourse. The patient's method of control includes nothing. Historical: - Allergies: 17:06 Flagyl; Nausea; ss - PMHx: 17:06 Asthma; ss - Immunization history:: Client reports having NOT received the Covid vaccine. - Social history:: Smoking status: Patient denies any tobacco usage or history of. ROS: 17:25 Constitutional: Negative for body aches, chills, fever, poor PO intake. cp 17:25 Eyes: Negative for injury, pain, redness, and discharge. cp 17:25 ENT: Negative for drainage from ear(s), ear pain, sore throat, difficulty swallowing, difficulty handling secretions. 17:25 Respiratory: Negative for cough, shortness of breath, wheezing. 17:25 Abdomen/GI: Negative for abdominal pain, vomiting, diarrhea, constipation. 17:25 Back: Negative for pain at rest, pain with movement. 17:25 : Positive for vaginal bleeding, vaginal discharge, vaginal pain, Negative for urinary symptoms. 17:25 Neuro: Negative for altered mental status, dizziness, headache, weakness. 17:25 All other systems are negative. Exam: 17:30 Constitutional: The patient appears in no acute distress, alert, awake, comfortable, cp non-toxic, well developed, well nourished. 17:30 Head/Face: Normocephalic, atraumatic. cp 17:30 Eyes: Periorbital structures: appear normal, Conjunctiva: normal, no exudate, no injection, Sclera: no appreciated abnormality, Lids and lashes: appear normal, bilaterally. 17:30 ENT: External ear(s): are unremarkable, Nose: is normal, Mouth: Lips: moist, Oral mucosa: pink and intact, moist, Posterior pharynx: Airway: no evidence of obstruction, patent. 17:30 Chest/axilla: Inspection: normal. 17:30 Cardiovascular: Rate: normal, Rhythm: regular. 17:30 Respiratory: the patient does not display signs of respiratory distress, Respirations: normal, no use of accessory muscles, no retractions, labored breathing, is not present, Breath sounds: are clear throughout. 17:30 Abdomen/GI: Inspection: abdomen appears normal, Palpation: abdomen is soft and non-tender, in all quadrants. 17:30 Back: pain, is absent, ROM is normal, CVA tenderness, is absent. 18:00 : Pelvic Exam: External exam: is normal, Speculum exam: no bleeding is noted, no cp cervicitis, os that is closed, bimanual exam reveals no adnexa tenderness or masses bilaterally, discharge, malodorous, yellow, the nurse was present for the exam, Sexual behavior: the patient is sexually active, and reports a single partner, method of control is none. Vital Signs: 17:01 BP 107 / 71; Pulse 101; Resp 18; Temp 98.9; Pulse Ox 100% ; Weight 49.9 kg; Height 5 ss ft. 3 in. ; 18:00 BP 107 / 73; Pulse 84; Resp 18; Pulse Ox 100% on R/A; eh3 19:00 BP 113 / 78; Pulse 84; Resp 18; Pulse Ox 100% on R/A; eh3 20:10 BP 120 / 100; Pulse 84; Resp 16 S; Pulse Ox 100% on R/A; ha1 17:01 Body Mass Index 19.49 (49.90 kg, 160.02 cm) ss MDM: 17:10 Patient medically screened. 18:00 Differential diagnosis: morro infection, ovarian cyst, pelvic inflammatory disease, cp urinary tract infection, vaginosis, PID. 19:42 Data reviewed: vital signs, nurses notes, lab test result(s), radiologic studies, cp ultrasound. 19:42 I considered the following discharge prescriptions or medication management in the emergency department Medications were administered in the Emergency Department. See MAR. Counseling: I had a detailed discussion with the patient and/or guardian regarding: the historical points, exam findings, and any diagnostic results supporting the discharge/admit diagnosis, lab results, radiology results, to return to the emergency department if symptoms worsen or persist or if there are any questions or concerns that arise at home. 08/10 17:10 Order name: Urinalysis W/Microscopic; Complete Time: 18:00 08/10 18:00 Interpretation: Reviewed. 08/10 17:10 Order name: PREGU; Complete Time: 18:00 08/10 18:00 Interpretation: Reviewed. 08/10 17:24 Order name: CBC with Diff; Complete Time: 18:19 08/10 18:19 Interpretation: Normal except: HGB 10.4; HCT 33.0; MCH 25.7; MCHC 31.5; RDW 16.4; MPV cp 6.5. 08/10 17:24 Order name: CMP; Complete Time: 18:19 08/10 18:19 Interpretation: Normal except: CL 108; ANION GAP 4.6; ALB 3.1; GLOB 4.8; A/G 0.6. 08/10 17:24 Order name: GC (GONORR/CHLAMYDIA) Probe 08/10 17:24 Order name: Wet Prep; Complete Time: 18:46 08/10 18:46 Interpretation: Reviewed. 08/10 18:19 Order name: US Transvaginal Study (Probe); Complete Time: 19:40 08/10 19:41 Interpretation: Reviewed report. 08/10 17:24 Order name: IV Saline Lock; Complete Time: 17:59 08/10 17:24 Order name: Labs collected and sent; Complete Time: 17:59 08/10 17:24 Order name: Pelvic Exam Setup; Complete Time: 17:35 cp Administered Medications: 19:49 Drug: Rocephin IV 1 grams Route: IV; Rate: calculated rate; Site: right antecubital; ha1 20:04 Follow up: Response: No adverse reaction; IV Status: Completed infusion; IV Intake: [id number] 19:49 Drug: AZITHromycin PO 1 grams Route: PO; ha1 20:04 Follow up: Response: No adverse reaction ha1 Disposition Summary: 06/26/23 19:42 Discharge Ordered Location: Home cp Problem: new cp Symptoms: have improved cp Condition: Stable cp Diagnosis - Vaginitis, vulvitis and vulvovaginitis in diseases classified elsewhere cp Followup: cp - With: Private Physician - When: 1 week - Reason: Recheck today's complaints Discharge Instructions: - Discharge Summary Sheet cp - Bacterial Vaginosis cp - Vaginitis cp Forms: - Medication Reconciliation Form cp - Thank You Letter cp - Antibiotic Education cp - Prescription Opioid Use cp - [email or web address] cp Prescriptions: - Clindamycin HCl 300 mg Oral Capsule - take 1 capsule by ORAL route every 12 hours for 7 days; 14 capsule; Refills: 0, cp Product Selection Permitted - Ibuprofen 600 mg Oral Tablet - take 1 tablet by ORAL route every 8 hours As needed take with food; 30 tablet; cp Refills: 0, Product Selection Permitted - Doxycycline Hyclate 100 mg Oral Tablet - take 1 tablet by ORAL route every 12 hours for 7 days; 14 tablet; Refills: 0, cp Product Selection Permitted Signatures: Dispatcher [facility] Caro Barba RN RN ss Cristhian Hernandez, KESHAWN PA cp Jyoti Adam RN RN ha1 Corrections: (The following items were deleted from the chart) 17:07 17:06 PSHx: I\T\D; ss ss
--- NOTE | 2022-08-10 19:43 | ER ---
Nurse's Notes [facility] Name: Briana Jones Age: 31 yrs Sex: Female : 1990 Arrival Date: 08/10/2022 Time: 16:45 Bed 19 Private MD: Diagnosis: Vaginitis, vulvitis and vulvovaginitis in diseases classified elsewhere Presentation: 08/10 17:01 Chief complaint: Patient states: Vaginal itching, irritation along with yellowish ss discharge. Seen by OBGYN in April, told to take Monostat and a one dose pill for yeast but still having the problems on/off. States what made her come today is that she noted some streaks of blood in her discharge today. Coronavirus screen: Vaccine status: Patient reports being unvaccinated. Ebola Screen: Patient denies travel to an Ebola-affected area in the 21 days before illness onset. Initial Sepsis Screen: Does the patient meet any 2 criteria? HR > 90 bpm. No. Patient's initial sepsis screen is negative. Does the patient have a suspected source of infection? No. Patient's initial sepsis screen is negative. Risk Assessment: Do you want to hurt yourself or someone else? Patient reports no desire to harm self or others. Onset of symptoms was August 08, 2022. 17:01 Method Of Arrival: Ambulatory ss 17:01 Acuity: CODY 3 ss Historical: - Allergies: 17:06 Flagyl; Nausea; ss - PMHx: 17:06 Asthma; ss - Immunization history:: Client reports having NOT received the Covid vaccine. - Social history:: Smoking status: Patient denies any tobacco usage or history of. Screenin:13 [facility] ED Fall Risk Assessment (Adult) Score/Fall Risk Level 0 - 2 = Low Risk. Abuse eh3 screen: Denies threats or abuse. Denies injuries from another. Nutritional screening: No deficits noted. Tuberculosis screening: No symptoms or risk factors identified. Assessment: 17:13 General: Appears in no apparent distress. uncomfortable, Behavior is calm, cooperative, eh3 appropriate for age. Pain: Denies pain. Neuro: Level of Consciousness is awake, alert, obeys commands, Oriented to person, place, time, situation. Cardiovascular: Capillary refill < 3 seconds Patient's skin is warm and dry. Respiratory: Airway is patent Respiratory effort is even, unlabored, Respiratory pattern is regular, symmetrical. GI: Abdomen is round non-distended. : Reports discharge, yellow, vaginal itching, vaginal bleeding that is spotty. Derm: Skin is pink, warm \T\ dry. Musculoskeletal: Circulation, motion, and sensation intact. 18:00 Reassessment: Patient appears in no apparent distress at this time. Patient and/or 3 family updated on plan of care and expected duration. Pain level reassessed. Patient is alert, oriented x 3, equal unlabored respirations, skin warm/dry/pink. 19:00 Reassessment: Patient appears in no apparent distress at this time. Patient and/or 3 family updated on plan of care and expected duration. Pain level reassessed. Patient is alert, oriented x 3, equal unlabored respirations, skin warm/dry/pink. 19:10 General: Appears comfortable, Behavior is calm, cooperative. Pain: Denies pain. Neuro: ha1 Level of Consciousness is awake, alert, obeys commands, Oriented to person, place, time, situation. Cardiovascular: Patient's skin is warm and dry. Respiratory: Airway is patent Respiratory effort is even, unlabored, Respiratory pattern is regular, symmetrical. : Reports vaginal itching. Vital Signs: 17:01 BP 107 / 71; Pulse 101; Resp 18; Temp 98.9; Pulse Ox 100% ; Weight 49.9 kg; Height 5 ss ft. 3 in. ; 18:00 BP 107 / 73; Pulse 84; Resp 18; Pulse Ox 100% on R/A; eh3 19:00 BP 113 / 78; Pulse 84; Resp 18; Pulse Ox 100% on R/A; eh3 20:10 BP 120 / 100; Pulse 84; Resp 16 S; Pulse Ox 100% on R/A; ha1 17:01 Body Mass Index 19.49 (49.90 kg, 160.02 cm) ED Course: 16:48 Patient arrived in ED. mr 16:52 Cristhian Hernandez PA is PHCP. cp 16:52 Rick Willard MD is Attending Physician. cp 17:06 Triage completed. ss 17:07 Arm band placed on left wrist. 17:12 Sanaz Romero, RN is Primary Nurse. [facility] 17:13 Patient has correct armband on for positive identification. Bed in low position. Call [facility] light in reach. Pulse ox on. NIBP on. 19:15 Report given to DEISY Montes. eh3 19:21 Transvaginal Study (Probe) In Process Unspecified. EDMS 20:12 No provider procedures requiring assistance completed. IV discontinued, intact, ha1 bleeding controlled, No redness/swelling at site. Pressure dressing applied. Administered Medications: 19:49 Drug: Rocephin IV 1 grams Route: IV; Rate: calculated rate; Site: right antecubital; ha1 20:04 Follow up: Response: No adverse reaction; IV Status: Completed infusion; IV Intake: [id number] 19:49 Drug: AZITHromycin PO 1 grams Route: PO; ha1 20:04 Follow up: Response: No adverse reaction ha1 Medication: 20:13 VIS not applicable for this client. ha1 Intake: 20:04 IV: 50ml; Total: 50ml. ha1 Outcome: 19:42 Discharge ordered by MD. cp 20:12 Discharged to home ambulatory. ha1 20:12 Condition: stable 20:12 Discharge instructions given to patient, Instructed on discharge instructions, follow up and referral plans. medication usage, Demonstrated understanding of instructions, follow-up care, medications, Prescriptions given X 3. 20:13 Patient left the ED. ha1 Signatures: Dispatcher [employer] [facility] MendozaJennifer Shelby, RN RN Cristhian Umana PA PA cp Hall, Erin, RN RN 3 Jyoti Adam RN RN 1 Corrections: (The following items were deleted from the chart) 17:07 17:06 PSHx: I\T\D; ss ss
[2022-08-10] MEDS ORDERED: CEFTRIAXONE 1000 MG/VIAL ONE (19:47)
[2022-08-10] MEDS ORDERED: AZITHROMYCIN 250 MG TAB ONE (19:47)
[2022-08-10] MEDS ORDERED: NA CHLORIDE 0.9% 50 ML ONE (19:48)
[2022-08-10 20:22] VITALS: TEMP 98.9; O2SAT 100
[2022-08-10 20:26] VITALS: BP 120/100
== END 2022-08-10 20:13 | disposition home or self-care (01) ==
LOC: ER 16:45
DX: N89.8 Other specified noninflammatory disorders of vagina (principal); N77.1 Vaginitis, vulvitis and vulvovaginitis in diseases classified elsewhere; Z88.1 Allergy status to other antibiotic agents
CPT/HCPCS: 85025; 81001; 36415; 81025; 87210; 80053; 87590; 87490; 76830; J0696

== ENCOUNTER 2022-12-19 14:18 | Emergency (ER) | payer OTHER, SELFPAY ==
--- OUTSIDE RECORDS SUMMARY | 2022-12-19 14:21 | XMS REPORT | Continuity of Care Document ---
:1990 Author Organization [facility] t Address [address] [facility]. [address] [place] [address] Care Team Providers Name Role Phone Asked, [...] U 2014-02 [facility]ie 0-20 [place] 00:00: [address] Social History Social Habit Start Date Stop Date Quantity Comments Source Sexual orientation [facility] Gender identity [facility] Alcohol intake 2019-12-26 2019-12-26 Current drinker [facility] 00:00:00 00:00:00 of alcohol Hospital (finding) History of Social 2019-12-26 2019-12-[address] function 00:00:00 00:00:00 Hospital Tobacco use and 2018-09-18 2018-09-18 Smokeless [facility] exposure 00:00:00 00:00:00 tobacco non-user Hospital Sex Assigned At [birth year] [facility] 00:00:00 00:00:00 Hospital Smoking Status Start Date Stop Date Source Never smoked tobacco [facility] Medications Ordered Filled Start Stop [...] Source Heart rate 2019-12-27 02:26:00 90 /min [facility] Respiratory rate 2019-12-27 02:26:00 16 /min [facility] Oxygen saturation in 2019-12-27 02:26:00 100 /min [facility] Arterial blood by Pulse oximetry Systolic blood 2019-12-27 02:26:00 109 mm[Hg] [facility] pressure Diastolic blood 2019-12-27 02:26:00 57 mm[Hg] [facility] pressure Body temperature 2019-12-27 00:08:38 37.33 [place]ney [facility] Procedures Procedure Date / Time Performed Performing Clinician Iain katz [id number] 2020-10-17 00:00:00 TOREL.01 [facility] [id number] 2020-10-17 00:00:00 TOREL.01 [facility] Encounters Start End Encounter Admission Attending Care Care Encounter Source Date/Time Date/Time Type Type Clinicians Facility Department ID 2020-10-27 Inpatient EL Almanzar, [facility] LD [id number] [facility] 10:13:[address] [facility] 2021-01-27 2021-01-27 Inpatient EL Almanzar, [facility] SURG [id number] [facility] 12:30:00 12:30:[address] [facility] 2021-01-17 2021-01-17 Inpatient EL Almanzar, [facility] SURG [id number] [facility] 12:30:00 12:30:[address] [facility] 2020-10-17 2020-10-18 Emergency EM Almanzar, [facility] OBPP [id number] [facility] 00:45:00 18:50:[address] [facility] 2020-08-18 2020-08-19 Emergency AMARI TranWU EDIL [id number] [facility] 22:57:00 00:19:[address] [facility] 2019-12-26 2019-12-26 Emergency Mabry, 1.2.840.1 [id number] Methodi 19:03:00 20:32:00 S[id number] 3.430.2.7 Hospit a .3.853283 l .8 2019-12-26 2019-12-26 Travel 1.2.840.1 [id number] Methodi 00:00:00 00:00:[address] 3.430.2.7 0.2.7.3.698 Ho spita .3.345744 084.8 l .8 2016-09-29 2016-10-04 Outpatient [facility] [id number] [place] 00:00:00 00:00:00 [facility] Results Test Description Test Time Test Comments Results Result Comments Source HGB HCT 2020-10-18 10:51:00 Test Item Value Reference Range Interpretation Comme nts HEMOGLOBIN (test code = HGB) 7.9 G/DL 11.2-14.9 L HEMATOCRIT (test code = HCT) 26.7 % 33.2-43.5 L URINALYSIS [id number] 07:57:00 Test Item Value Reference Range Interpretation [...] = UACULT) URINE SPECIMEN TYPE CLEAN CATCHUA [id number] 07:57:00 Test Item Value Reference Range Interpretation [...] A YEASTU) URINE SPECIMEN TYPE CLEAN CATCHURINALYSIS [id number] 07:43:00 Test Item Value Reference Range Interpretation [...] = UACULT) URINE SPECIMEN TYPE CLEAN CATCHUA [id number] 07:43:00 Test Item Value Reference Range Interpretation Comments UA RBC (test code = RBCU) RBC/HPF 0-3 UA WBC (test code = XWBCU) WBC/HPF 0-5 UA EPITHELIAL CELLS (test code = EPI/HPF FEW EPIU) UA BACTERIA (test code = XBACU) NONE URINE SPECIMEN TYPE CLEAN CATCHURINALYSIS [id number] 07:43:00 Test Item Value Reference Range Interpretation [...] = UACULT) URINE SPECIMEN TYPE CLEAN CATCHUA [id number] 07:43:00 Test Item Value Reference Range Interpretation Comments UA RBC (test code = RBCU) RBC/HPF 0-3 UA WBC (test code = XWBCU) WBC/HPF 0-5 UA EPITHELIAL CELLS (test code = EPI/HPF FEW EPIU) UA BACTERIA (test code = XBACU) NONE URINE SPECIMEN TYPE CLEAN CATCHRAPID PLASMA [id number] 06:53:00 Test Item Value Reference Range Interpretation Comments RAPID PLASMA REAGIN (test code = NON REAC NON REAC RPR) AG HEPATITIS B [id number] 06:53:00 Test Item Value Reference Range Interpretation Comments AG HEPATITIS B SURFACE (test code = NEGATIVE NONREACTIVE HBSAG) HIV 12 AB [id number] 06:53:00 Test Item Value Reference Range Interpretation Comments HIV 1 2 COMBO AG/AB SCREEN AB/AG NON REACTIVE NONREACTIVE (test code = [id number]) CBC W/AUTO [id number] 03:45:00 Test Item Value Reference Range Interpretation [...] = 0.00 K/mm3 0.0-0.1 N NRBC#) DIFFERENTIAL [id number] 03:45:00 Test Item Value Reference Range Interpretation Comments RBC MORPHOLOGY REQUIRED (test code = ABNORMAL RBCM) ANISOCYTOSIS (test code = ANISO) SLIGHT NONE PLATELET ESTIMATE (test code = ADEQUATE ADEQUATE PLTEST) PLATELET MORPHOLOGY (test code = NORMAL NORMAL PLTMORPH) AG HEPATITIS B [id number] 03:10:00 Test Item Value Reference Range Interpretation Comments AG HEPATITIS B SURFACE (test code = NEGATIVE NONREACTIVE HBSAG) HIV 12 AB [id number] 03:10:00 Test Item Value Reference Range Interpretation Comments HIV 1 2 COMBO AG/AB SCREEN AB/AG NON REACTIVE NONREACTIVE (test code = [id number]) RAPID PLASMA [id number] 03:10:00 Test Item Value Reference Range Interpretation Comments RAPID PLASMA REAGIN (test code = RPR) NON REAC RAPID PLASMA [id number] 03:01:00 Test Item Value Reference Range Interpretation Comments RAPID PLASMA REAGIN (test code = RPR) NON REAC AG HEPATITIS B [id number] 03:01:00 Test Item Value Reference Range Interpretation Comments AG HEPATITIS B SURFACE (test code = NEGATIVE NONREACTIVE HBSAG) HIV 12 AB [id number] 03:01:00 Test Item Value Reference Range Interpretation Comments HIV 1 2 COMBO AG/AB SCREEN (test code = NONREACTIVE [id number]) COVID 19 Asymptomatic IH [id number] 02:27:00 Test Item Value Reference Range Interpretation [...] virus (antigen) in the sample." CBC W/AUTO [id number] 02:12:00 Test Item Value Reference Range Interpretation [...] = 0.00 K/mm3 0.0-0.1 N NRBC#) DIFFERENTIAL [id number] 02:12:00 Test Item Value Reference Range Interpretation Comments RBC MORPHOLOGY REQUIRED (test code = RBCM) PLATELET ESTIMATE (test code = PLTEST) ADEQUATE PLATELET MORPHOLOGY (test code = NORMAL PLTMORPH) CBC W/AUTO [id number] 02:12:00 Test Item Value Reference Range Interpretation [...] = 0.00 K/mm3 0.0-0.1 N NRBC#) DIFFERENTIAL [id number] 02:12:00 Test Item Value Reference Range Interpretation Comments RBC MORPHOLOGY REQUIRED (test code = RBCM) PLATELET ESTIMATE (test code = PLTEST) ADEQUATE PLATELET MORPHOLOGY (test code = NORMAL PLTMORPH) - US FET BIO PH MA W/O [id number] 23:36:00 [facility] 1990 Sex: FPatient Name: HEATHER PARRISH Unit No: [id number] EXAMS: CPT CODE: [id number] US FET BIO PH MA W/O NST 43247 AFTER HOURS SERVICE ON: 10/16/2020 11:35 PM [...] Technologist: DEMOND Newton(A,OB) Transcrpt Date/Tm/Trnsp: 10/16/2020 (2336) [id number] Orig Print D/T: S: 10/16/2020 (5837) [facility] NAME: HEATHER PARRISH [id number] PHYS: [id number] - [place] [address] : 1990 AGE: 29 SEX:F LOC: MIGUELED PHONE #: [phone] EXAM DATE: 10/16/2020 STATUS: REG ER FAX #: [phone] RADIOLOGY NO: [id number] PAGE 1 Signed ReportAMNISURE (ROM) [id number] 23:59:00 Test Item Value Reference Range Interpretation Comments AMNISURE (ROM) TEST (test code = NON-RUPTURED NON-RUPTURE AMNI)
[2022-12-19] MEDS ORDERED: KETOROLAC 30 MG/ML INJ ONE (16:26)
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
[2022-12-19 17:21] VITALS: BP 118/88; TEMP 98.8; O2SAT 97
== END 2022-12-19 17:04 | disposition home or self-care (01) ==
LOC: ER 14:18
DX: S80.211A Abrasion, right knee, initial encounter (principal); M54.50 Low back pain, unspecified; V49.40XA Driver injured in collision with unspecified motor vehicles in traffic accident, initial encounter; Z88.1 Allergy status to other antibiotic agents
CPT/HCPCS: 96372; 99284

== ENCOUNTER → 2023-03-14 | Emergency (ER) | payer SELFPAY ==
[~2023-03-14] MED LIST: KETOROLAC 30 MG/ML INJ ONE
--- NOTE | 2023-03-14 08:55 | EDPHYS ---
Physician Documentation [facility] Name: Briana Jones Age: 32 yrs Sex: Female : 1990 Arrival Date: 03/14/2023 Time: 08:25 Bed 14 Private MD: ED Physician Afshin Coffey HPI: 03/14 09:16 This 32 yrs old Black Female presents to ER via Ambulatory with complaints of Toothache.rt 09:16 Patient presents to the ED with a pain to the right lower molar since last night. rt Ibuprofen, Tylenol has not adequately improved her symptoms. She does report having dental issues in the past, has not seen a dentist in some time, however, does have an appointment with report clinic dentist in mid March. Denies difficulty swallowing, other acute complaints, symptoms are mild in severity, aching nature, nonradiating, no other aggravating or elevating factors.. Historical: - Allergies: 08:32 Flagyl; Nausea; aa5 - PMHx: 08:32 Asthma; aa5 - Immunization history:: Adult Immunizations unknown. - Social history:: Smoking status: Patient denies any tobacco usage or history of. - Family history:: not pertinent. ROS: 09:16 Constitutional: Negative for fever, chills, and weight loss, Respiratory: Negative for rt shortness of breath, cough, wheezing, and pleuritic chest pain, Abdomen/GI: Negative for abdominal pain, nausea, vomiting, diarrhea, and constipation, Skin: Negative for injury, rash, and discoloration, Neuro: Negative for headache, weakness, numbness, tingling, and seizure, Psych: Negative for depression, anxiety, suicide ideation, homicidal ideation, and hallucinations, 09:16 ENT: Positive for dental pain, Negative for nasal discharge, Exam: 09:16 Constitutional: This is a well developed, well nourished patient who is awake, alert, rt and in no acute distress. Chest/axilla: Normal chest wall appearance and motion. Nontender with no deformity. No lesions are appreciated. Cardiovascular: Regular rate and rhythm with a normal S1 and S2. No gallops, murmurs, or rubs. Normal PMI, no JVD. No pulse deficits. Respiratory: Lungs have equal breath sounds bilaterally, clear to auscultation and percussion. No rales, rhonchi or wheezes noted. No increased work of breathing, no retractions or nasal flaring. Abdomen/GI: Soft, non-tender, with normal bowel sounds. No distension or tympany. No guarding or rebound. No evidence of tenderness throughout. Neuro: Awake and alert, GCS 15, oriented to person, place, time, and situation. Cranial nerves II-XII grossly intact. Motor strength 5/5 in all extremities. Sensory grossly intact. Cerebellar exam normal. Normal gait. Psych: Awake, alert, with orientation to person, place and time. Behavior, mood, and affect are within normal limits. 09:16 ENT: Multiple bilateral dental caries noted, no drainable abscess, no oropharyngeal swelling. Vital Signs: 08:29 BP 120 / 83; Pulse 74; Resp 18 S; Temp 98.3(O); Pulse Ox 99% on R/A; Weight 54.43 kg aa5 (R); Height 5 ft. 3 in. (R); 08:29 Body Mass Index 21.26 (54.43 kg, 160.02 cm) aa5 MDM: 08:48 Patient medically screened. rt 09:16 Differential diagnosis: dental caries, gingivitis, dental abscess. Data reviewed: vital rt signs, nurses notes. Test considered but Not performed: CT: No clinical evidence to suggest RPA, PROFESSOR OF COUNSELING, Kenyon's angina, CT scan not indicated. Counseling: I had a detailed discussion with the patient and/or guardian regarding the historical points, exam findings, and any diagnostic results supporting the discharge/admit diagnosis, the need for outpatient follow up, to return to the emergency department if symptoms worsen or persist or if there are any questions or concerns that arise at home. Administered Medications: 08:55 Drug: Ketorolac IM 15 mg IM once Route: IM; Site: right gluteus; mb9 09:03 Follow up: Response: No adverse reaction mb9 Disposition Summary: 03/14/23 08:55 Discharge Ordered Notes: Location: Home rt Problem: new rt Symptoms: are unchanged rt Condition: Stable rt Diagnosis - Dental caries, unspecified rt Followup: rt - With: Private Physician - When: 5 - 6 days - Reason: Discharge Instructions: - Discharge Summary Sheet rt - Dental Caries, Adult rt Forms: - Medication Reconciliation Form rt - Thank You Letter rt - Antibiotic Education rt - Prescription Opioid Use rt - Patient Portal Instructions rt - Leadership Thank You Letter rt Prescriptions: - Peridex 0.12 % Mucous Membrane Mouthwash - swish 15 milliliter MUCOUS MEMBRANE route 2 times per day; 300 milliliter; rt Refills: 0, Product Selection Permitted - Amoxicillin 875 mg Oral Tablet - take 1 tablet ORAL route every 12 hours for 10 days; 20 tablet; Refills: 0, rt Product Selection Permitted - Tramadol 50 mg Oral Tablet - take 1 tablet ORAL route every 8 hours as needed; 12 tablet; Refills: 0, rt Product Selection Permitted Signatures: Maria Guadalupe Lovelace RN RN aa5 Jennifer Ruiz RN RN mb9 Afshin Coffey MD MD rt
--- NOTE | 2023-03-14 08:55 | ER ---
Nurse's Notes [facility] Name: Briana Jones Age: 32 yrs Sex: Female : 1990 Arrival Date: 03/14/2023 Time: 08:25 Bed 14 Private MD: Diagnosis: Dental caries, unspecified Presentation: 03/14 08:29 Chief complaint: Patient states: toothache to right lower that began last night. aa5 08:29 Coronavirus screen: At this time, the client does not indicate any symptoms associated aa5 with coronavirus-19. Ebola Screen: Patient denies travel to an Ebola-affected area in the 21 days before illness onset. Initial Sepsis Screen: Does the patient meet any 2 criteria? No. Patient's initial sepsis screen is negative. Does the patient have a suspected source of infection? No. Patient's initial sepsis screen is negative. Risk Assessment: Do you want to hurt yourself or someone else? Patient reports no desire to harm self or others. Onset of symptoms was February 2023. 08:29 Acuity: CODY 4 aa5 08:29 Method Of Arrival: Ambulatory aa5 Historical: - Allergies: 08:32 Flagyl; Nausea; aa5 - PMHx: 08:32 Asthma; aa5 - Immunization history:: Adult Immunizations unknown. - Social history:: Smoking status: Patient denies any tobacco usage or history of. - Family history:: not pertinent. Screenin:45 [facility] ED Fall Risk Assessment (Adult) History of falling in the last 3 months, mb9 including since admission No falls in past 3 months (0 pts) Confusion or Disorientation No (0 pts) Intoxicated or Sedated No (0 pts) Impaired Gait No (0 pts) Mobility Assist Device Used No (0 pt) Altered Elimination No (0 pt) Score/Fall Risk Level 0 - 2 = Low Risk Oriented to surroundings, Maintained a safe environment, Educated pt \T\ family on fall prevention, incl call for assistance when getting out of bed. Abuse screen: Denies threats or abuse. Nutritional screening: No deficits noted. Tuberculosis screening: No symptoms or risk factors identified. Assessment: 08:44 General: Appears uncomfortable, Behavior is calm, cooperative. Pain: Complains of pain mb9 in right side of jaw Pain does not radiate. Pain currently is 10 out of 10 on a pain scale. Quality of pain is described as throbbing, Pain began suddenly. Neuro: [place] Agitation-Sedation Scale (RASS): 0 - Alert and Calm Level of Consciousness is awake, alert, obeys commands, Oriented to person, place, time, situation, Appropriate for age. Cardiovascular: Patient's skin is warm and dry. Respiratory: Airway is patent Respiratory effort is even, unlabored, Respiratory pattern is regular, symmetrical. GI: No signs and/or symptoms were reported involving the gastrointestinal system. : No signs and/or symptoms were reported regarding the genitourinary system. EENT: Oral mucosa is moist. Poor dentition noted. Derm: Skin is pink, warm \T\ dry. Musculoskeletal: Range of motion: intact in all extremities. Vital Signs: 08:29 BP 120 / 83; Pulse 74; Resp 18 S; Temp 98.3(O); Pulse Ox 99% on R/A; Weight 54.43 kg aa5 (R); Height 5 ft. 3 in. (R); 08:29 Body Mass Index 21.26 (54.43 kg, 160.02 cm) aa5 ED Course: 08:27 Patient arrived in ED. rg4 08:29 Arm band placed on Patient placed in an exam room, on a stretcher. aa5 08:34 Triage completed. aa5 08:43 Jennifer Ruiz, DEISY is Primary Nurse. mb9 08:45 Placed in gown. Bed in low position. Call light in reach. Side rails up X 1. Client mb9 placed on continuous cardiac and pulse oximetry monitoring. NIBP monitoring applied. 08:45 No provider procedures requiring assistance completed. mb9 08:48 Afshin Coffey MD is Attending Physician. rt 09:03 Patient did not have IV access during this emergency room visit. mb9 Administered Medications: 08:55 Drug: Ketorolac IM 15 mg IM once Route: IM; Site: right gluteus; mb9 09:03 Follow up: Response: No adverse reaction mb9 Medication: 09:03 VIS not applicable for this client. mb9 Outcome: 08:55 Discharge ordered by . rt 09:03 Discharged to home ambulatory, mbLiberty 09:03 Condition: stable 09:03 Discharge instructions given to patient, Instructed on discharge instructions, follow up and referral plans. Demonstrated understanding of instructions, follow-up care, medications, Prescriptions given X 3, 09:03 Patient left the ED. mb9 Signatures: Maria Guadalupe Lovelace, RN RN [email or web address] Jennifer Ruiz RN RN mb9 Afshin Coffey MD MD rt
[2023-03-14 11:43] VITALS: BP 120/83; TEMP 98.3; O2SAT 99
== END ==
LOC: ER 08:25
DX: K02.9 Dental caries, unspecified (principal); Z88.1 Allergy status to other antibiotic agents

== ENCOUNTER → 2023-04-25 | Emergency (ER) | payer SELFPAY ==
[~2023-04-25] MED LIST changes: +FLUCONAZOLE 100 MG TAB ONE; -KETOROLAC 30 MG/ML INJ ONE
--- NOTE | 2023-04-25 22:41 | RAD REPORT ---
EXAM DESCRIPTION: Jojo Danielson And Annie (2 Views)04/25/2023 10:26 pm CLINICAL HISTORY: Cough COMPARISON: None FINDINGS: Lungs are mildly hyperaerated. The lungs appear clear of acute infiltrate. The heart is normal size IMPRESSION: No acute abnormalities displayed
[2023-04-25 22:53] LABS: Specific Gravity 1.022 (1.005-1.030)
[2023-04-25 23:25] LABS: Specific Gravity 1.022 (1.005-1.030); Urine Bacteria None Seen /HPF (<20); Urine Bilirubin NEGATIVE (Negative); Urine Blood Negative (Negative); Urine Clarity Turbid (Clear); Urine Color Light-Yellow (Yellow); Urine Glucose NEGATIVE (Negative); Urine Mucus Slight /HPF (None Seen); Urine Protein TRACE (Negative); Urine RBC <5 /HPF (None Seen); Urine Urobilinogen Normal (Normal)
--- NOTE | 2023-04-25 23:31 | ER ---
Nurse's Notes [facility] Name: Briana Jones Age: 32 yrs Sex: Female : 1990 Arrival Date: 04/25/2023 Time: 21:32 Bed IW2 Private MD: Diagnosis: Acute bronchitis, unspecified;Candidiasis of vulva and vagina Presentation: 04/24 21:52 Chief complaint: Patient states: cough and congestion for 2 weeks with no fever; also km8 vaginal itching with discharge and burning with urination for 2 weeks intermittently; not concerned for STD. Coronavirus screen: Client denies travel out of the [place] in the last 14 days. Ebola Screen: No symptoms or risks identified at this time. Initial Sepsis Screen: Does the patient meet any 2 criteria? No. Patient's initial sepsis screen is negative. Does the patient have a suspected source of infection? No. Patient's initial sepsis screen is negative. Risk Assessment: Do you want to hurt yourself or someone else? Patient reports no desire to harm self or others. Onset of symptoms was April 11, 2023. 21:52 Method Of Arrival: Ambulatory km8 21:52 Acuity: CODY 3 km8 Triage Assessment: 21:55 General: Appears in no apparent distress. comfortable, Behavior is calm, cooperative, km8 appropriate for age. Pain: Denies pain. EENT: No signs and/or symptoms were reported regarding the EENT system. Neuro: Level of Consciousness is awake, alert, obeys commands, Oriented to person, place, time, situation, Appropriate for age. Cardiovascular: Patient's skin is warm and dry. Respiratory: Reports cough that is non-productive, Airway is patent Respiratory effort is even, unlabored, Respiratory pattern is regular, symmetrical, Breath sounds are clear. GI: No signs and/or symptoms were reported involving the gastrointestinal system. : Reports burning with urination, discharge, from vagina that is white, vaginal itching. Derm: No signs and/or symptoms reported regarding the dermatologic system. Skin is intact, is healthy with good turgor, Skin is dry, Skin is pink, warm \T\ dry. normal, Skin temperature is warm. Musculoskeletal: No signs and/or symptoms reported regarding the musculoskeletal system. Range of motion: intact in all extremities. 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 Pneumococcal vaccine is not up to date. - Social history:: Smoking status: Patient denies any tobacco usage or history of. Patient uses alcohol, occasionally. Patient/guardian denies using street drugs. Screenin:52 [facility] ED Fall Risk Assessment (Adult) History of falling in the last 3 months, km8 including since admission No falls in past 3 months (0 pts) Confusion or Disorientation No (0 pts) Intoxicated or Sedated No (0 pts) Impaired Gait No (0 pts) Mobility Assist Device Used No (0 pt) Altered Elimination No (0 pt) Score/Fall Risk Level 0 - 2 = Low Risk Oriented to surroundings, Maintained a safe environment, Educated pt \T\ family on fall prevention, incl call for assistance when getting out of bed, Assessed \T\ reinforced patient's understanding of fall precautions. Abuse screen: Denies threats or abuse. Denies injuries from another. Nutritional screening: No deficits noted. Tuberculosis screening: No symptoms or risk factors identified. Assessment: 21:52 Reassessment: see triage assessment/notes. km8 Vital Signs: 21:52 BP 104 / 70; Pulse 97; Resp 16; Temp 98.7(TE); Pulse Ox 100% on R/A; Weight 54.43 kg km8 (R); Height 5 ft. 3 in. (R); Pain 0/10; 21:52 Body Mass Index 21.26 (54.43 kg, 160.02 cm) km8 21:52 Pain Scale: Adult km8 [place] Coma Score: 21:52 Eye Response: spontaneous(4). Motor Response: obeys commands(6). Verbal Response: km8 oriented(5). Total: 15. ED Course: 21:38 Patient arrived in ED. gm2 21:46 Mary Gooden PA-C is [facility]. sb4 21:46 Aj Cortes DO is Attending Physician. sb4 21:52 Patient has correct armband on for positive identification. km8 21:52 Patient maintains SpO2 saturation greater than 95% on room air. km8 21:55 Triage completed. km8 21:55 Arm band placed on right wrist. km8 22:11 Urine collected: clean catch specimen, clear. km8 22:11 UAM Sent. km8 22:11 Test, Urine Sent. km8 22:28 Chest Pa And Lat (2 Views) XRAY In Process Unspecified. EDMS 23:36 No provider procedures requiring assistance completed. Patient did not have IV access km8 during this emergency room visit. 23:46 Provided Education on: d/c teaching. km8 Administered Medications: 23:43 Drug: Fluconazole PO 200 mg PO once Route: PO; km8 23:47 Follow up: Response: Medication administered at discharge. km8 Medication: 23:36 VIS not applicable for this client. km8 Outcome: 23:30 Discharge ordered by MD. sb4 23:46 Discharged to home ambulatory, km8 23:46 Condition: good 23:46 Discharge instructions given to patient, Instructed on discharge instructions, follow up and referral plans. medication usage, Demonstrated understanding of instructions, follow-up care, medications, Prescriptions given X 1, 23:47 Patient left the ED. km8 Signatures: Dispatcher [employer] EDMS Mary Gooden PA-C PACaitlinC sb4 Selina Mcdonald 2 Georgia Sarmiento, RN RN km8 Corrections: (The following items were deleted from the chart) 21:59 21:52 Chief complaint: Patient states: cough and congestion for 2 weeks with no fever; km8 also vaginal itching with discharge and burning with urination km8 21:59 21:52 BP 104 / 70; Pulse 97bpm; Resp 16bpm; Pulse Ox 100% RA; Temp 98.7F Temporal; km8 54.43 kg Reported; Height 5 ft. 3 in. Reported; BMI: 21.2; km8
--- NOTE | 2023-04-25 23:31 | EDPHYS ---
Physician Documentation [facility] Name: Briana Jones Age: 32 yrs Sex: Female : 1990 Arrival Date: 04/25/2023 Time: 21:32 Bed IW2 Private MD: ED Physician Aj Cortes HPI: 04/24 22:04 This 32 yrs old Black Female presents to ER via Ambulatory with complaints of Cough, sb4 Congestion, Vaginal Itching. 22:04 patient reports chest congestion and productive cough for 2 weeks now. no other URI sb4 symptoms, wanted to make sure she doesn't have bronchitis or PNA. has not been taking any OTC medications. also complains of vaginal itching and white discharge. reports history of yeast infections, has been taking Monistat without resolution of symptoms. 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 Pneumococcal vaccine is not up to date. - Social history:: Smoking status: Patient denies any tobacco usage or history of. Patient uses alcohol, occasionally. Patient/guardian denies using street drugs. ROS: 22:04 Constitutional: Negative for fever, chills, and weight loss, sb4 22:04 Respiratory: Positive for cough, with yellow sputum, 22:04 : Positive for vaginal discharge, vaginal itching, 22:04 All other systems are negative, Exam: 22:04 Constitutional: This is a well developed, well nourished patient who is awake, alert, sb4 and in no acute distress. Head/Face: Normocephalic, atraumatic. Eyes: Extra-ocular motions intact. Periorbital areas with no swelling, redness, or edema. ENT: Mucous membranes moist. Cardiovascular: Regular rate and rhythm with a normal S1 and S2. Respiratory: Lungs have equal breath sounds bilaterally, clear to auscultation and percussion. No rales, rhonchi or wheezes noted. No increased work of breathing, no retractions or nasal flaring. Abdomen/GI: Soft, non-tender, no distension. Skin: Warm, dry with normal turgor. Normal color with no rashes, no lesions, and no evidence of cellulitis. MS/ Extremity: Pulses equal, no cyanosis. Neurovascular intact. Full, normal range of motion. Neuro: Awake and alert, GCS 15, oriented to person, place, time, and situation. Motor strength 5/5 in all extremities. Sensory grossly intact. Vital Signs: 21:52 BP 104 / 70; Pulse 97; Resp 16; Temp 98.7(TE); Pulse Ox 100% on R/A; Weight 54.43 kg km8 (R); Height 5 ft. 3 in. (R); Pain 0/10; 21:52 Body Mass Index 21.26 (54.43 kg, 160.02 cm) [facility] 21:52 Pain Scale: Adult km8 [place] Coma Score: 21:52 Eye Response: spontaneous(4). Motor Response: obeys commands(6). Verbal Response: km8 oriented(5). Total: 15. MDM: 21:57 Patient medically screened. sb4 22:04 Differential Diagnosis: Bronchitis Asthma Exacerbation Pneumonia Other yeast infection, sb4 UTI. 23:09 Independent interpretation of the following test(s) in the Emergency Department X-Ray: sb4 My interpretation is my interpretation of the chest xray images are no acute consolidation, overt signs of pneumonia. 23:29 Data reviewed: vital signs, nurses notes, lab test result(s), and as a result, I will sb4 discharge patient. Data reviewed: radiologic studies. Counseling: I had a detailed discussion with the patient and/or guardian regarding the historical points, exam findings, and any diagnostic results supporting the discharge/admit diagnosis, lab results, radiology results, to return to the emergency department if symptoms worsen or persist or if there are any questions or concerns that arise at home. 04/24 22:02 Order name: UAM; Complete Time: 23:25 sb4 04/24 22:02 Order name: Test, Urine; Complete Time: 22:58 sb4 04/24 22:02 Order name: Chest Pa And Lat (2 Views) XRAY; Complete Time: 22:42 sb4 Administered Medications: 23:43 Drug: Fluconazole PO 200 mg PO once Route: PO; [facility] 23:47 Follow up: Response: Medication administered at discharge. km8 Disposition: 04/25 02:18 I was immediately available on-site in the Emergency Department for consultation in the ms3 care of the patient. Disposition Summary: 04/25/23 23:30 Discharge Ordered Notes: Location: Home sb4 Problem: an ongoing problem sb4 Symptoms: are unchanged sb4 Condition: Stable sb4 Diagnosis - Acute bronchitis, unspecified sb4 - Candidiasis of vulva and vagina sb4 Followup: sb4 - With: Emergency Department - When: As needed - Reason: Trouble breathing, Worsening of condition Discharge Instructions: - Discharge Summary Sheet sb4 - Acute Bronchitis, Adult sb4 - Vaginal Yeast Infection, Adult sb4 - Cool Mist Vaporizer sb4 Forms: - Thank You Letter sb4 - Patient Portal Instructions sb4 - Leadership Thank You Letter sb4 Prescriptions: - Guaifenesin AC 10-100 mg/5 mL Oral Liquid - take 10 milliliters ORAL route every 4 hours As needed; 240 milliliter; sb4 Refills: 0, Product Selection Permitted Signatures: Dispatcher [employer] EDID Aj Cortes DO DO ms3 Mary Gooden, PA-C PA-C sb4 Georgia Sarmiento, RN RN km8
[2023-04-26 00:33] VITALS: BP 104/70; TEMP 98.7; O2SAT 100
== END ==
LOC: ER 21:32
DX: J20.9 Acute bronchitis, unspecified (principal); B37.31 Acute candidiasis of vulva and vagina; Z88.5 Allergy status to narcotic agent
CPT/HCPCS: 71046; 81001; 81025; 99284

== ENCOUNTER 2023-06-22 21:56 | Emergency (ER) | payer SELFPAY ==
[2023-06-22 23:02] LABS: Specific Gravity 1.018 (1.005-1.030)
[2023-06-22 23:11] LABS: Specific Gravity 1.018 (1.005-1.030); Urine Bacteria None Seen /HPF (<20); Urine Bilirubin NEGATIVE (Negative); Urine Blood Negative (Negative); Urine Clarity Extremely Turbid (Clear); Urine Color Light-Yellow (Yellow); Urine Culture Reflex Order NOT NEEDED; Urine Glucose NEGATIVE (Negative); Urine Ketones NEGATIVE (Negative); Urine Microscopic Reflex YN ORDER UMIC; Urine Mucus Slight /HPF (None Seen); Urine Nitrite NEGATIVE (Negative); Urine Protein NEGATIVE (Negative); Urine RBC None Seen /HPF (None Seen); Urine Urobilinogen Normal (Normal); Urine WBC <5 /HPF (<5); Urine pH 6.5 (5.0-7.0)
--- NOTE | 2023-06-22 23:27 | ER ---
Nurse's Notes [facility] Name: Briana Jones Age: 32 yrs Sex: Female : 1990 Arrival Date: 06/22/2023 Time: 21:56 Bed 9 Private MD: Diagnosis: Irregular menstruation, unspecified Presentation: 06/21 22:53 Chief complaint: Patient states: I am spotting off and on and having lower abdominal jb4 cramps. Coronavirus screen: At this time, the client does not indicate any symptoms associated with coronavirus-19. Ebola Screen: No symptoms or risks identified at this time. Initial Sepsis Screen: Does the patient meet any 2 criteria? No. Patient's initial sepsis screen is negative. Does the patient have a suspected source of infection? No. Patient's initial sepsis screen is negative. Risk Assessment: Do you want to hurt yourself or someone else? Patient reports no desire to harm self or others. Onset of symptoms was June 22, 2023. Transition of care: patient was not received from another setting of care. 22:53 Method Of Arrival: Ambulatory jb4 22:53 Acuity: CODY 3 jb4 Historical: - Allergies: 22:54 Flagyl; Nausea; jb4 - PMHx: 22:54 Asthma; jb4 - PSHx: 22:54 None; jb4 - Immunization history:: Adult Immunizations up to date. - Infectious Disease History:: Denies. - Social history:: Smoking status: Patient denies any tobacco usage or history of. Screenin:00 [facility] ED Fall Risk Assessment (Adult) History of falling in the last 3 months, jb4 including since admission No falls in past 3 months (0 pts) Confusion or Disorientation No (0 pts) Intoxicated or Sedated No (0 pts) Impaired Gait No (0 pts) Mobility Assist Device Used No (0 pt) Altered Elimination No (0 pt) Score/Fall Risk Level 0 - 2 = Low Risk Oriented to surroundings, Maintained a safe environment. Abuse screen: Denies threats or abuse. Nutritional screening: No deficits noted. Tuberculosis screening: No symptoms or risk factors identified. Assessment: 23:00 General: Appears in no apparent distress. comfortable, Behavior is calm, cooperative, jb4 appropriate for age. Pain: Complains of pain in right lower quadrant and left lower quadrant Pain does not radiate. Pain currently is 2 out of 10 on a pain scale. Neuro: Level of Consciousness is awake, alert, obeys commands, Oriented to person, place, time, situation. Cardiovascular: Patient's skin is warm and dry. Respiratory: Airway is compromised Respiratory effort is even, unlabored, Respiratory pattern is. GI: Abdomen is flat, non-distended. : Reports vaginal bleeding that is spotty. EENT: No signs and/or symptoms were reported regarding the EENT system. Derm: Skin is intact, Skin is pink, warm \T\ dry. Vital Signs: 22:53 BP 108 / 77; Pulse 80; Resp 16; Temp 99.8(TE); Pulse Ox 96% on R/A; Weight 56.7 kg; jb4 Height 5 ft. 3 in. ; Pain 2/10; 22:53 Body Mass Index 22.14 (56.70 kg, 160.02 cm) jb4 22:53 Pain Scale: Adult jb4 ED Course: 21:59 Patient arrived in ED. im 22:03 Ora Abbott FNP-C is [facility]. kb 22:03 Aldo Tracey MD is Attending Physician. kb 22:54 Triage completed. jb4 22:54 Arm band placed on right wrist. jb4 23:35 Patient has correct armband on for positive identification. Bed in low position. Call jb4 light in reach. Side rails up X 1. Provided Education on: discharge instructions.. 23:35 No provider procedures requiring assistance completed. Patient did not have IV access jb4 during this emergency room visit. Administered Medications: No medications were administered Medication: 23:00 VIS not applicable for this client. jb4 Outcome: 23:27 Discharge ordered by . kb 23:35 Discharged to home ambulatory, jb4 23:35 Condition: stable 23:35 Discharge instructions given to patient, Instructed on discharge instructions, follow up and referral plans. Demonstrated understanding of instructions, follow-up care, 23:36 Patient left the ED. jb4 Signatures: Ora Abbott FNP-C FNP-Ckb Bryson, James, RN RN jb4 Tonya Earl im
--- NOTE | 2023-06-22 23:27 | EDPHYS ---
Physician Documentation [facility] Name: Briana Jones Age: 32 yrs Sex: Female : 1990 Arrival Date: 06/22/2023 Time: 21:56 Bed 9 Private MD: ED Physician Aldo Tracey HPI: 06/21 22:11 This 32 yrs old Black Female presents to ER via Unassigned with complaints of Abdominal kb Cramping, Vaginal Bleeding - spotting. 22:11 Pt is a 32 year old female who presents for lower abd cramping and spotting that kb started a week ago. states LMP was 05/28/23. Denies fever, n/v/d. States she has been having irregular periods recently, but this is intermittent spotting that she has never had before. Historical: - Allergies: 22:54 Flagyl; Nausea; jb4 - PMHx: 22:54 Asthma; jb4 - PSHx: 22:54 None; jb4 - Immunization history:: Adult Immunizations up to date. - Infectious Disease History:: Denies. - Social history:: Smoking status: Patient denies any tobacco usage or history of. ROS: 22:11 Constitutional: As per HPI kb Exam: 22:11 Constitutional: This is a well developed, well nourished patient who is awake, alert, kb and in no acute distress. Head/Face: Normocephalic, atraumatic. ENT: Moist Mucous membranes Cardiovascular: Regular rate Respiratory: Respirations even and unlabored. No increased work of breathing. Talking in full sentences Abdomen/GI: Soft, non-tender. No distention Skin: Warm, dry with normal turgor. Normal color. MS/ Extremity: Pulses equal, no cyanosis. Neurovascular intact. Full, normal range of motion. Neuro: Awake and alert, GCS 15, oriented to person, place, time, and situation. Moves all extremities. Normal gait. Vital Signs: 22:53 BP 108 / 77; Pulse 80; Resp 16; Temp 99.8(TE); Pulse Ox 96% on R/A; Weight 56.7 kg; jb4 Height 5 ft. 3 in. ; Pain 2/10; 22:53 Body Mass Index 22.14 (56.70 kg, 160.02 cm) jb4 22:53 Pain Scale: Adult jb4 MDM: 22:03 Patient medically screened. kb 22:13 Data reviewed: vital signs, nurses notes. kb 23:26 Differential diagnosis: , uti, irregular menstration. Counseling: I had a kb detailed discussion with the patient and/or guardian regarding the historical points, exam findings, and any diagnostic results supporting the discharge/admit diagnosis, lab results, the need for outpatient follow up, a family practitioner, to return to the emergency department if symptoms worsen or persist or if there are any questions or concerns that arise at home. 06/21 22:13 Order name: Test, Urine; Complete Time: 23:26 kb 06/21 22:13 Order name: Urinalysis w/ reflexes; Complete Time: 23:13 kb Administered Medications: No medications were administered Disposition: 23:42 Co-signature as Attending Physician, Aldo Tracey MD I agree with the assessment sp4 and plan of care. I reviewed the patient's care provided by the Advanced Practice Provider and agree with the diagnosis and treatment plan. Disposition Summary: 06/22/23 23:27 Discharge Ordered Notes: Location: Home kb Condition: Stable kb Diagnosis - Irregular menstruation, unspecified kb Followup: kb - With: Emergency Department - When: As needed - Reason: Worsening of condition Followup: kb - With: Private Physician - When: 2 - 3 days - Reason: Recheck today's complaints, Continuance of care, Re-evaluation by your physician Discharge Instructions: - Discharge Summary Sheet kb - Abnormal Uterine Bleeding, [id number] kb Forms: - Medication Reconciliation Form kb - Antibiotic Education kb - Prescription Opioid Use kb - Patient Portal Instructions kb - Leadership Thank You Letter kb Signatures: Dispatcher [employer] Ora Short, DIGESTER COOK-C DIGESTER COOK-Jamel Chávez, RN RN jb4 Aldo Tracey MD MD sp4 Corrections: (The following items were deleted from the chart) 22:14 22:11 Pt is a 32 year old female who presents for lower abd cramping and spotting that kb started a week ago. states LMP was 05/28/23. Denies fever, n/v/d.. kb
[2023-06-22 23:45] VITALS: BP 108/77; TEMP 99.8; O2SAT 96
== END 2023-06-22 23:36 | disposition home or self-care (01) ==
LOC: ER 21:56
DX: N92.6 Irregular menstruation, unspecified (principal)
CPT/HCPCS: 81001; 81025; 99282

== ENCOUNTER 2023-12-19 17:39 | Emergency (ER) | payer OTHER, SELFPAY ==
[2023-12-19 18:47] LABS: Absolute Eosinophils 0.1 K/uL (0-0.5); Absolute Lymphocytes (CBC) 1.3 K/uL (0.7-4.9); Absolute Monocytes 0.5 K/uL (0.1-1.3); Absolute Neutrophil 3.7 K/uL (1.8-8.0); Basophils % 0.3 % (0-1.3); Eosinophils % 2.5 % (0-4.4); Hematocrit 32.3 % (36.0-45.0); Hemoglobin 10.9 g/dL (12.0-15.0); Lymphocytes % 22.8 % (15.3-44.8); MCH 28.3 pg (27.0-35.0); MCHC 33.9 g/dL (32.0-36.0); MCV 83.3 fL (80-100); MPV 6.5 fL (7.6-11.3); Monocytes % 9.4 % (3.3-12.3); Nucleated Red Blood Cells % 0.1 % (0-0); Platelets 324 thou/uL (152-406); RBC Red Blood Cell Count 3.87 M/uL (3.86-4.86); Red Cell Distribution Width 15.3 % (12.1-15.2)
--- NOTE | 2023-12-19 19:02 | RAD REPORT ---
EXAM: Transvaginal OB HISTORY: ABD CRAMPING, COMPARISON: 11/13/2023 TECHNIQUE: Multiple grayscale and color Doppler images were obtained in a transabdominal pelvic ultra sound. Spectral analysis of the Doppler waveforms of the ovaries were performed. FINDINGS: UTERUS: There is an intrauterine gestational sac. This contains a yolk sac and pole. Mcmurray-rump length: 2.8 cm which estimates gestational age at 9 week 5 day. A heart rate is detected at 177 bpm. No evidence of subchorionic hemorrhage. No free fluid is seen in the pelvis. RIGHT OVARY: Normal flow without focal mass. LEFT OVARY: Normal flow without focal mass. IMPRESSION: Single live intrauterine with estimated age of 9 week 5 day.
[2023-12-19 19:14] LABS: Anion Gap 6.5 mEq/L (5.0-15.0); Potassium 3.5 mEq/L (3.5-5.1)
[2023-12-19 19:15] LABS: Specific Gravity > 1.030 (1.005-1.030)
[2023-12-19 19:16] LABS: Specific Gravity > 1.030 (1.005-1.030); Sqamous Epithelial <5 /HPF (None Seen); Urine Bacteria None Seen /HPF (<20); Urine Bilirubin NEGATIVE (Negative); Urine Blood Negative (Negative); Urine Clarity Turbid (Clear); Urine Color Yellow (Yellow); Urine Culture Reflex Order REFLEXED; Urine Glucose NEGATIVE (Negative); Urine Ketones NEGATIVE (Negative); Urine Microscopic Reflex YN ORDER UMIC; Urine Mucus Slight /HPF (None Seen); Urine Nitrite NEGATIVE (Negative); Urine Protein 1+ (Negative); Urine RBC 21-50 /HPF (None Seen); Urine Urobilinogen 1+ (Normal); Urine WBC 20-50 /HPF (<5); Urine WBC Clump Rare /HPF (None Seen); Urine Yeast (Budding) Occasional /HPF (None Seen)
--- NOTE | 2023-12-19 19:53 | ER ---
Nurse's Notes [facility] Name: Briana Jones Age: 33 yrs Sex: Female : 1990 Arrival Date: 12/19/2023 Time: 17:39 Bed 18 Private MD: Diagnosis: The Vaginal bleeding in , threatened miscarriage, UTI in Presentation: 12/18 17:52 Chief complaint: Patient states: Approximately 10 weeks G3, P2. Started having ll1 slight cramping and vaginal bleeding that started today. Coronavirus screen: Client denies travel out of the [place] in the last 14 days. At this time, the client does not indicate any symptoms associated with coronavirus-19. Ebola Screen: Patient denies travel to an Ebola-affected area in the 21 days before illness onset. Initial Sepsis Screen: Does the patient meet any 2 criteria? No. Patient's initial sepsis screen is negative. Does the patient have a suspected source of infection? No. Patient's initial sepsis screen is negative. Risk Assessment: Do you want to hurt yourself or someone else? Patient reports no desire to harm self or others. Onset of symptoms was December 19, 2023. 17:52 Method Of Arrival: Ambulatory ll1 17:52 Acuity: CODY 3 ll1 Triage Assessment: 17:52 General: Appears uncomfortable, Behavior is calm, cooperative, appropriate for age. ll1 Pain: Complains of pain in pelvis Quality of pain is described as crampy. : Reports cramping, vaginal bleeding that is. Historical: - Allergies: 17:52 Flagyl; Nausea; ll1 - PMHx: 17:52 Asthma; ll1 - PSHx: 17:52 None; ll1 - Immunization history:: Adult Immunizations. - Infectious Disease History:: Denies. - Social history:: Smoking status: Patient denies any tobacco usage or history of. - Family history:: not pertinent. Screenin:04 [facility] ED Fall Risk Assessment (Adult) History of falling in the last 3 months, cm10 including since admission No falls in past 3 months (0 pts) Confusion or Disorientation No (0 pts) Intoxicated or Sedated No (0 pts) Impaired Gait No (0 pts) Mobility Assist Device Used No (0 pt) Altered Elimination No (0 pt) Score/Fall Risk Level 0 - 2 = Low Risk Oriented to surroundings, Maintained a safe environment, Hourly rounding (assess needs \T\ fall precautionary measures) done. Abuse screen: Denies threats or abuse. Denies injuries from another. Nutritional screening: No deficits noted. Tuberculosis screening: No symptoms or risk factors identified. Assessment: 19:17 Obstetrical Assessment: Patient reports abdominal cramping, VAGINAL SPOTTING BRIGHT RED br2 BLOOD. Reassessment: Patient and/or family updated on plan of care and expected duration. Pain level reassessed. Patient is alert, oriented x 3, equal unlabored respirations, skin warm/dry/pink. General: Appears in no apparent distress. comfortable, Behavior is calm, cooperative. Pain: Complains of pain in groin Pain does not radiate. Pain currently is 2 out of 10 on a pain scale. Quality of pain is described as crampy. Neuro: [place] Agitation-Sedation Scale (RASS): 0 - Alert and Calm Level of Consciousness is awake, alert, obeys commands, confused, Oriented to person, place, time, situation. Cardiovascular: Capillary refill < 3 seconds. Respiratory: Airway is patent is compromised. GI: Reports pelvic pain. : Reports rRECENTLY DX WITH UTI AND HASN'T STARTED RX YET. EENT: No signs and/or symptoms were reported regarding the EENT system. Derm: No signs and/or symptoms reported regarding the dermatologic system. Vital Signs: 17:52 BP 106 / 73; Pulse 92; Resp 17; Pulse Ox 100% ; Weight 53.07 kg; Height 5 ft. 3 in. ; ll1 Pain 2/10; 19:15 BP 110 / 64; Pulse 82; Resp 18 S; Temp 97.2; Pulse Ox 98% on R/A; br2 20:00 BP 104 / 70; Pulse 80; Resp 18; Temp 97.2; Pulse Ox 100% ; Pain 0/10; br2 17:52 Body Mass Index 20.73 (53.07 kg, 160.02 cm) ll1 17:52 Pain Scale: Adult ll1 20:00 Pain Scale: Adult br2 Vitals: 20:05 Heart Tones ultra sound done. br2 [place] Coma Score: 19:24 Eye Response: spontaneous(4). Motor Response: obeys commands(6). Verbal Response: sp4 oriented(5). Total: 15. ED Course: 17:41 Patient arrived in ED. ra3 17:46 Rommel Mabry MD is Attending Physician. sp3 17:52 Arm band placed on. ll1 17:53 Triage completed. ll1 17:55 Nohemy Shelby, RN is Primary Nurse. cm10 18:33 Patient taken to ultrasound. via wheelchair. mb9 18:33 Quantitative Hcg Sent. mb9 18:33 Abo/rh Typing Sent. mb9 18:33 CBC with Diff Sent. mb9 18:33 Basic Metabolic Panel Sent. mb9 18:33 Initial lab(s) drawn, by ut, sent to lab. Inserted saline lock: 20 gauge in left mb9 antecubital area, using aseptic technique. Blood collected. Flushed with 10 mL NS. 18:59 US Transvaginal Ob In Process Unspecified. EDMS 19:04 Patient has correct armband on for positive identification. Bed in low position. Call cm10 light in reach. Provided Education on: ER process and procedures.. 19:07 Attending Physician role handed off by Rommel Mabry MD sp4 19:07 Aldo Tracey MD is Attending Physician. sp4 20:05 No provider procedures requiring assistance completed. IV discontinued, intact, br2 bleeding controlled, No redness/swelling at site. Pressure dressing applied. Administered Medications: 20:00 Drug: Nitrofurantoin PO 100 mg PO once; administer with food Route: PO; br2 20:05 Follow up: Response: Medication Administered at Departure br2 20:00 Drug: Ondansetron PO 4 mg PO once Route: PO; br2 20:05 Follow up: Response: Medication administered at discharge. br2 Medication: 19:05 VIS not applicable for this client. cm10 Outcome: 19:52 Discharge ordered by . sp4 20:05 Discharged to home ambulatory, br2 20:05 Condition: improved 20:05 Discharge instructions given to patient, Instructed on discharge instructions, follow up and referral plans. medication usage, Demonstrated understanding of instructions, follow-up care, medications, Prescriptions given X 1, 20:26 Patient left the ED. br2 Signatures: Dispatcher [employer] EDWY Eduardo White RN RN ll1 Rommel Mabry MD MD sp3 Jennifer Pitts RN RN mb9 Aldo Tracey MD MD sp4 Nohemy Shelby, RN RN cm10 Evelyn Powers ra3 Loraine Dickens, DEISY RN br2
--- NOTE | 2023-12-19 19:53 | EDPHYS ---
Physician Documentation [facility] Name: Briana Jones Age: 33 yrs Sex: Female : 1990 Arrival Date: 12/19/2023 Time: 17:39 Bed 18 Private MD: ED Physician Aldo Tracey HPI: 12/18 19:17 This 33 yrs old Black Female presents to ER via Ambulatory with complaints of Vaginal sp4 Bleeding, + Preg <12wks. 19:22 33-year-old female with G 3 P 2001 , presents with acute onset of vaginal bleeding sp4 which is painless. Vaginal bleeding started today and is mild. LMP 10/12/2023 EGA by LMP 9 weeks 5 days.. Historical: - Allergies: 17:52 Flagyl; Nausea; ll1 - PMHx: 17:52 Asthma; ll1 - PSHx: 17:52 None; ll1 - Immunization history:: Adult Immunizations. - Infectious Disease History:: Denies. - Social history:: Smoking status: Patient denies any tobacco usage or history of. - Family history:: not pertinent. ROS: 19:24 Constitutional: Negative for fever, chills, and weight loss, : Positive for vaginal sp4 bleeding 19:24 All other systems are negative, Exam: 19:24 Constitutional: This is a well developed, well nourished patient who is awake, alert, sp4 and in no acute distress. Head/Face: Normocephalic, atraumatic. Eyes: Pupils equal round and reactive to light, extra-ocular motions intact. Lids and lashes normal. Conjunctiva and sclera are not injected. Cornea within normal limits. Periorbital areas with no swelling, redness, or edema. ENT: Nares patent. No nasal discharge, no septal abnormalities noted. Tympanic membranes are normal and external auditory canals are clear. Oropharynx with no redness, swelling, or masses, exudates, or evidence of obstruction, uvula midline. Mucous membranes moist. Neck: Trachea midline, no thyromegaly or masses palpated, and no cervical lymphadenopathy. Supple, full range of motion without nuchal rigidity, or vertebral point tenderness. Chest/axilla: Normal chest wall appearance and motion. Nontender with no deformity. No lesions are appreciated. Cardiovascular: Regular rate and rhythm with a normal S1 and S2. No gallops, murmurs, or rubs. Normal PMI, no JVD. No pulse deficits. Respiratory: Lungs have equal breath sounds bilaterally, clear to auscultation and percussion. No rales, rhonchi or wheezes noted. No increased work of breathing, no retractions or nasal flaring. Abdomen/GI: Soft, with normal bowel sounds. No distension or tympany. No guarding or rebound. No evidence of tenderness throughout. Back: No spinal tenderness. No costovertebral tenderness. Skin: Warm, dry with normal turgor. Normal color with no rashes, no lesions, and no evidence of cellulitis. MS/ Extremity: Pulses equal, no cyanosis. Neurovascular intact. Full, normal range of motion. Neuro: Awake and alert, GCS 15, oriented to person, place, time, and situation. Cranial nerves II-XII grossly intact. Motor strength 5/5 in all extremities. Sensory grossly intact. Psych: Awake, alert, with orientation to person, place and time. Behavior, mood, and affect are within normal limits Vital Signs: 17:52 BP 106 / 73; Pulse 92; Resp 17; Pulse Ox 100% ; Weight 53.07 kg; Height 5 ft. 3 in. ; ll1 Pain 2/10; 19:15 BP 110 / 64; Pulse 82; Resp 18 S; Temp 97.2; Pulse Ox 98% on R/A; br2 20:00 BP 104 / 70; Pulse 80; Resp 18; Temp 97.2; Pulse Ox 100% ; Pain 0/10; br2 17:52 Body Mass Index 20.73 (53.07 kg, 160.02 cm) ll1 17:52 Pain Scale: Adult ll1 20:00 Pain Scale: Adult br2 [place] Coma Score: 19:24 Eye Response: spontaneous(4). Motor Response: obeys commands(6). Verbal Response: sp4 oriented(5). Total: 15. MDM: 17:50 Medical Screening Exam initiated sp3 19:43 ED course: Status: REG ER ER Exam Date: 12/19/23 EXAM: sp4 Transvaginal OB HISTORY: ABD CRAMPING, COMPARISON: 11/13/2023 TECHNIQUE: Multiple grayscale and color Doppler images were obtained in a transabdominal pelvic ultrasound. Spectral analysis of the Doppler waveforms of the ovaries were performed. FINDINGS: UTERUS: There is an intrauterine gestational sac. This contains a yolk sac and pole. Tiburones-rump length: 2.8 cm which estimates gestational age at 9 week 5 day. A heart rate is detected at 177 bpm. No evidence of subchorionic hemorrhage. No free fluid is seen in the pelvis. RIGHT OVARY: Normal flow without focal mass. LEFT OVARY: Normal flow without focal mass. IMPRESSION: Single live intrauterine with estimated age of 9 week 5 day. . 19:59 Differential diagnosis: STD, ectopic . Data reviewed: vital signs, nurses sp4 notes, lab test result(s), radiologic studies, ultrasound. Consideration of Admission/Observation Escalation of care including admission/observation considered. ED course: Patient has positive leukocyte esterase by urinalysis will provide Macrobid for 10 days. Otherwise will recommend follow-up with OB doctor in 48 hours for hCG level check . 12/18 18:24 Order name: Abo/rh Typing; Complete Time: 19:07 sp3 12/18 18:24 Order name: Basic Metabolic Panel; Complete Time: 19:44 sp3 12/18 18:24 Order name: CBC with Diff; Complete Time: 19:07 sp3 12/18 18:24 Order name: Test, Urine; Complete Time: 19:44 sp3 12/18 18:24 Order name: Quantitative Hcg; Complete Time: 19:44 sp3 12/18 18:24 Order name: Urinalysis w/ reflexes; Complete Time: 19:44 sp3 12/18 19:19 Order name: Urine Culture [facility] 12/18 18:24 Order name: US Transvaginal Ob; Complete Time: 19:07 sp3 12/18 18:24 Order name: IV Saline Lock; Complete Time: 18:32 sp3 12/18 18:24 Order name: Labs collected and sent; Complete Time: 18:33 sp3 12/18 18:24 Order name: NPO; Complete Time: 18:32 sp3 Administered Medications: 20:00 Drug: Nitrofurantoin PO 100 mg PO once; administer with food Route: PO; br2 20:05 Follow up: Response: Medication Administered at Departure br2 20:00 Drug: Ondansetron PO 4 mg PO once Route: PO; br2 20:05 Follow up: Response: Medication administered at discharge. br2 Disposition Summary: 12/19/23 19:52 Discharge Ordered Notes: Location: Home sp4 Problem: new sp4 Symptoms: have improved sp4 Condition: Stable sp4 Diagnosis - The Vaginal bleeding in , threatened miscarriage, UTI in sp4 Followup: sp4 - With: Private Physician - When: 2 - 3 days - Reason: Recheck today's complaints Discharge Instructions: - Discharge Summary Sheet sp4 - Threatened Miscarriage, [id number] sp4 Forms: - Patient Portal Instructions sp4 Prescriptions: - Macrobid 100 mg Oral Capsule - take 1 capsule ORAL route every 12 hours for 10 days; 20 capsule; Refills: 0, sp4 Product Selection Permitted Signatures: Dispatcher [employer] Eduardo Hu, RN RN ll1 Rommel Mabry MD MD sp3 Aldo Tracey MD MD sp4 Loraine Dickens RN RN br2
[2023-12-19] MEDS ORDERED: ONDANSETRON 4 MG (ODT) TAB ONE (20:03)
[2023-12-19] MEDS ORDERED: NITROFURAN MACRO 100 MG CAP PO ONE (20:03)
[2023-12-19 20:48] VITALS: O2SAT 100
[2023-12-19 20:54] VITALS: BP 104/70; TEMP 97.2
== END 2023-12-19 20:26 | disposition home or self-care (01) ==
LOC: ER 17:39
DX: O20.0 Threatened abortion (principal); O23.41 Unspecified infection of urinary tract in pregnancy, first trimester; N39.0 Urinary tract infection, site not specified; Z3A.09 9 weeks gestation of pregnancy
CPT/HCPCS: 87088; 85025; 81001; 87086; 80048; 36415; 86900; 81025; 86901; 84702; 76817; 99284; Q0162

== ENCOUNTER 2024-01-10 15:37 | Emergency (ER) | payer OTHER ==
[2024-01-10] MEDS ORDERED: NA CHLORIDE 0.9% 1,000 ML ONE (16:56)
[2024-01-10] MEDS ORDERED: METOCLOPRAMIDE 10 MG/2mL INJ ONE (16:56)
[2024-01-10 17:04] LABS: Specific Gravity > 1.030 (1.005-1.030); Sqamous Epithelial <5 /HPF (None Seen); Urine Bacteria <20 /HPF (<20); Urine Bilirubin NEGATIVE (Negative); Urine Blood Negative (Negative); Urine Clarity Extremely Turbid (Clear); Urine Color Yellow (Yellow); Urine Crystals Unidentified Few /HPF (None Seen); Urine Culture Reflex Order REFLEXED; Urine Glucose NEGATIVE (Negative); Urine Ketones NEGATIVE (Negative); Urine Micro Reflex YN NO BILL MICROSCOPIC; Urine Mucus 3+ /HPF (None Seen); Urine Nitrite NEGATIVE (Negative); Urine Protein 1+ (Negative); Urine RBC 21-50 /HPF (None Seen); Urine Urobilinogen 1+ (Normal); Urine Yeast (Budding) Trace /HPF (None Seen)
[2024-01-10 17:07] LABS: Absolute Eosinophils 0.1 K/uL (0-0.5); Absolute Monocytes 0.5 K/uL (0.1-1.3); Absolute Neutrophil 4.4 K/uL (1.8-8.0); Basophils % 0.2 % (0-1.3); Eosinophils % 1.5 % (0-4.4); Hematocrit 31.2 % (36.0-45.0); Hemoglobin 10.4 g/dL (12.0-15.0); Lymphocytes % 16.6 % (15.3-44.8); MCH 27.7 pg (27.0-35.0); MCHC 33.3 g/dL (32.0-36.0); MPV 6.3 fL (7.6-11.3); Monocytes % 8.7 % (3.3-12.3); Platelets 341 thou/uL (152-406); RBC Red Blood Cell Count 3.75 M/uL (3.86-4.86); Red Cell Distribution Width 14.9 % (12.1-15.2)
[2024-01-10 17:19] LABS: Anion Gap 7.4 mEq/L (5.0-15.0); Potassium 3.4 mEq/L (3.5-5.1)
--- NOTE | 2024-01-10 17:23 | RAD REPORT ---
EXAMINATION: US OB Limited COMPARISON: None. HISTORY: [facility] MAIN ABD CRAMPING, Bed: TECHNIQUE: Real-time ultrasound was performed through the pelvis through a transabdominal approach. FINDINGS: There is a single living intrauterine . Cervical canal appears closed Both ovaries are nonvisualized due to size of the uterus. There is no free fluid in the cul-de-sac. Measurements and Calculations: Femur length 9.5 millimeter, consistent with a sonographic age of 12 weeks, 6 days. The patient's LMP dates are not stated. heart rate: 166 BPM. IMPRESSION: Single living intrauterine , with a composite sonographic age of 12 weeks, 6 days.
--- NOTE | 2024-01-10 18:35 | ER ---
Nurse's Notes [facility] Name: Briana Jones Age: 33 yrs Sex: Female : 1990 Arrival Date: 01/10/2024 Time: 15:37 Bed 19 Private MD: Diagnosis: UTI/ Urinary tract infection, site not specified;Hypokalemia;12 weeks gestation of Presentation: 01/09 16:05 Chief complaint: Chief complaint: Patient states: I have a chunky green vaginal tm6 discharge, starting about a week ago. I was on antibiotics for a UTI, finished them a week ago, but still having the discharge. Also having stomach cramping (RUQ). 16:05 Coronavirus screen: Client denies travel out of the [place] in the last 14 days. Ebola tm6 Screen: Patient negative for fever greater than or equal to 101.5 degrees Fahrenheit, and additional compatible Ebola Virus Disease symptoms Patient denies exposure to infectious person. Patient denies travel to an Ebola-affected area in the 21 days before illness onset. No symptoms or risks identified at this time. Initial Sepsis Screen: Does the patient meet any 2 criteria? No. Patient's initial sepsis screen is negative. Does the patient have a suspected source of infection? No. Patient's initial sepsis screen is negative. Risk Assessment: Do you want to hurt yourself or someone else? Patient reports no desire to harm self or others. Onset of symptoms was January 03, 2024. 16:05 Method Of Arrival: Ambulatory tm6 16:05 Acuity: CODY 3 tm6 Triage Assessment: 16:07 General: Appears in no apparent distress. Behavior is calm, cooperative. Pain: tm6 Complains of pain in abdomen Pain currently is 2 out of 10 on a pain scale. Quality of pain is described as crampy, Pain began week ago. EENT: No signs and/or symptoms were reported regarding the EENT system. Neuro: Level of Consciousness is awake, alert, obeys commands, Oriented to person, place, time, situation. Cardiovascular: Patient's skin is warm and dry. Respiratory: Airway is patent Respiratory effort is even, unlabored, Respiratory pattern is regular, symmetrical. GI: Abdomen is flat, non-distended, Reports upper abdominal pain, nausea. : Reports discharge, green, since one week ago. Derm: No signs and/or symptoms reported regarding the dermatologic system. Musculoskeletal: No signs and/or symptoms reported regarding the musculoskeletal system. MANAGER CAMP: 16:04 LMP 10/12/2023, Verified, EDC 07/18/2024, Gestational age from LMP: 12 weeks 6 tm6 days Historical: - Allergies: 16:07 Flagyl; Nausea; tm6 - PMHx: 16:07 Asthma; tm6 - PSHx: 16:07 None; tm6 - Immunization history:: Client reports having NOT received the Covid vaccine. - Infectious Disease History:: Denies. - Social history:: Smoking status: Patient denies any tobacco usage or history of. Screenin:03 [facility] ED Fall Risk Assessment (Adult) History of falling in the last 3 months, kc6 including since admission No falls in past 3 months (0 pts) Confusion or Disorientation No (0 pts) Intoxicated or Sedated No (0 pts) Impaired Gait No (0 pts) Mobility Assist Device Used No (0 pt) Altered Elimination No (0 pt) Score/Fall Risk Level 0 - 2 = Low Risk Oriented to surroundings, Maintained a safe environment. Abuse screen: Denies threats or abuse. Denies injuries from another. Nutritional screening: No deficits noted. Tuberculosis screening: No symptoms or risk factors identified. Assessment: 16:03 General: Appears in no apparent distress. comfortable, well groomed, well developed, kc6 Behavior is calm, cooperative, appropriate for age. Pain: Complains of pain in pelvis and abdomen Quality of pain is described as crampy, dull. Neuro: Level of Consciousness is awake, alert, obeys commands, Oriented to person, place, time, situation, Appropriate for age. Cardiovascular: Capillary refill < 3 seconds. Respiratory: Airway is patent Trachea midline Respiratory effort is even, unlabored, Respiratory pattern is regular, symmetrical. GI: Abdomen is flat, non-distended, Bowel sounds present X 4 quads. Abd is soft X 4 quads Reports cramping, nausea, Patient currently denies diarrhea, vomiting. : Urine is cloudy, green, Reports cramping, vaginal itching, Denies vaginal bleeding. EENT: No signs and/or symptoms were reported regarding the EENT system. Derm: No signs and/or symptoms reported regarding the dermatologic system. Skin is intact, is healthy with good turgor, Skin is pink, warm \T\ dry. Musculoskeletal: No signs and/or symptoms reported regarding the musculoskeletal system. Circulation, motion, and sensation intact. Capillary refill < 3 seconds, Range of motion: intact in all extremities. 17:03 Reassessment: Patient appears in no apparent distress at this time. No changes from kc6 previously documented assessment. Patient and/or family updated on plan of care and expected duration. Pain level reassessed. Patient is alert, oriented x 3, equal unlabored respirations, skin warm/dry/pink. 18:44 Reassessment: Patient appears in no apparent distress at this time. No changes from kc6 previously documented assessment. Patient and/or family updated on plan of care and expected duration. Pain level reassessed. Patient is alert, oriented x 3, equal unlabored respirations, skin warm/dry/pink. Patient states feeling better. Patient states symptoms have improved. Vital Signs: 16:04 Pulse 87; Resp 17; Temp 99(O); Pulse Ox 99% on R/A; Height 5 ft. 3 in. ; Pain 2/10; tm6 16:05 BP 95 / 71; MAP 80 mmHg; tm6 18:44 BP 100 / 69; Pulse 85; Resp 18 S; Pulse Ox 98% on R/A; kc6 16:04 Pain Scale: Adult tm6 ED Course: 15:43 Patient arrived in ED. im 15:44 Delroy Retana MD is Attending Physician. ec2 16:07 Triage completed. tm6 16:07 Arm band placed on right wrist. tm6 16:10 Allergy band placed. tm6 16:41 Lyndsey Medina RN is Primary Nurse. kc6 16:55 Pulse ox on. NIBP on. Door closed. Noise minimized. Lights dimmed. Pillow given. kc6 16:55 Inserted saline lock: 22 gauge in left antecubital area, using aseptic technique. Blood kc6 collected. Flushed with 10 mL NS. Patient maintains SpO2 saturation greater than 95% on room air. 17:08 OB Limited In Process Unspecified. EDMS 18:44 No provider procedures requiring assistance completed. IV discontinued, intact, kc6 bleeding controlled, No redness/swelling at site. Pressure dressing applied. Administered Medications: 17:11 Drug: NS 0.9% IV 500 ml IV at bolus once; to be given as a bolus over 30 minutes Route: kc6 IV; Rate: bolus; Site: left antecubital; 18:35 Follow up: Response: No adverse reaction; IV Status: Completed infusion; IV Intake: kc6 500ml 17:11 Drug: metoCLOPramide IVP 10 mg IVP once; over 1 to 2 minutes Route: IVP; Site: left kc6 antecubital; 17:51 Follow up: Response: No adverse reaction; Nausea is decreased kc6 18:42 Drug: Fluconazole PO 150 mg PO once Route: PO; kc6 18:43 Follow up: Response: No adverse reaction kc6 Medication: 18:44 VIS not applicable for this client. kc6 Intake: 18:35 IV: 500ml; Total: 500ml. kc6 Outcome: 18:34 Discharge ordered by . ec2 18:44 Discharged to home ambulatory, with family, kc6 18:44 Condition: good 18:44 Discharge instructions given to patient, family, Instructed on discharge instructions, follow up and referral plans. medication usage, Demonstrated understanding of instructions, follow-up care, medications, Prescriptions given X 2, 18:44 Patient left the ED. kc6 Signatures: Dispatcher [employer] Lyndsey Mac RN RN kc6 Tonya Earl Edwin, MD MD ec2 Julian Morales RN RN tm6 Corrections: (The following items were deleted from the chart) 16:07 16:05 Chief complaint: tm6 tm6
--- NOTE | 2024-01-10 18:35 | EDPHYS ---
Physician Documentation [facility] Name: Briana Jones Age: 33 yrs Sex: Female : 1990 Arrival Date: 01/10/2024 Time: 15:37 Bed 19 Private MD: ED Physician Delroy Retana HPI: 01/09 16:20 This 33 yrs old Black Female presents to ER via Ambulatory with complaints of Vaginal ec2 Discharge, Abdominal Cramping, 12 weeks . 16:20 Patient arrives today for evaluation of vaginal discharge and abdominal cramping in the ec2 setting of 12 weeks of . Has had previous ultrasonography that have been normal. Patient reports no vaginal bleeding. Patient reports that she is concerned she has a UTI as she was previously diagnosed with a UTI and however did not complete all her antibiotics. Endorses some greenish discharge as well.. 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 - Infectious Disease History:: Denies. - Social history:: Smoking status: Patient denies any tobacco usage or history of. ROS: 16:20 Constitutional: as per hpi ec2 Exam: 16:20 Constitutional: GEN: NAD Head: atraumatic Eyes: EOMI Ears: External ears are ec2 normal. CV: regular rate LUNGS: no respiratory distress ABD: non-distended, soft, gravid uterus, not guarding, not rigid, nontender SKIN: no evidence of rashes MSK: no evidence of trauma Vital Signs: 16:04 Pulse 87; Resp 17; Temp 99(O); Pulse Ox 99% on R/A; Height 5 ft. 3 in. ; Pain 2/10; tm6 16:05 BP 95 / 71; MAP 80 mmHg; tm6 18:44 BP 100 / 69; Pulse 85; Resp 18 S; Pulse Ox 98% on R/A; kc6 16:04 Pain Scale: Adult tm6 MDM: 15:44 Medical Screening Exam initiated ec2 16:20 Data reviewed: vital signs, nurses notes. ED course: Patient arrives today for ec2 evaluation of abdominal discomfort along with vaginal discharge. Examination revealing for well-appearing nontoxic hemodynamically stable individual who has a reassuring abdominal examination. Will obtain ultrasonography, urine study as well as lab work. Differential diagnosis includes hyperemesis gravidarum, urinary tract infection, abnormal .. 17:18 ED course: Patient with inflammatory markers and urine, will treat for UTI.. ec2 17:26 ED course: Ultrasound shows uncomplicated at 12 weeks and 6 days.. ec2 01/09 15:44 Order name: UAM; Complete Time: 17:18 ec2 01/09 16:18 Order name: CBC with Diff; Complete Time: 17:18 ec2 01/09 16:18 Order name: BMP; Complete Time: 17:58 ec2 01/09 16:18 Order name: HCG-Quantitative; Complete Time: 17:58 ec2 01/09 16:18 Order name: Wet Prep; Complete Time: 18:31 ec2 01/09 17:07 Order name: Urine Culture EDMS 01/09 15:57 Order name: OB Limited; Complete Time: 17:26 EDMS Administered Medications: 17:11 Drug: NS 0.9% IV 500 ml IV at bolus once; to be given as a bolus over 30 minutes Route: kc6 IV; Rate: bolus; Site: left antecubital; 18:35 Follow up: Response: No adverse reaction; IV Status: Completed infusion; IV Intake: kc6 500ml 17:11 Drug: metoCLOPramide IVP 10 mg IVP once; over 1 to 2 minutes Route: IVP; Site: left kc6 antecubital; 17:51 Follow up: Response: No adverse reaction; Nausea is decreased kc6 18:42 Drug: Fluconazole PO 150 mg PO once Route: PO; kc6 18:43 Follow up: Response: No adverse reaction kc6 Disposition Summary: 01/10/24 18:34 Discharge Ordered Notes: Location: Home ec2 Condition: Stable ec2 Diagnosis - UTI/ Urinary tract infection, site not specified ec2 - Hypokalemia ec2 - 12 weeks gestation of ec2 Followup: ec2 - With: Private Physician - When: - Reason: Re-evaluation by your physician Discharge Instructions: - Discharge Summary Sheet ec2 - Urinary Tract Infection, Adult, [id number] ec2 Forms: - Medication Reconciliation Form ec2 - Antibiotic Education ec2 - Prescription Opioid Use ec2 - Patient Portal Instructions ec2 - Leadership Thank You Letter ec2 Prescriptions: - Cephalexin 500 mg Oral capsule - take 1 capsule ORAL route every 12 hours for 5 days; 10 capsule; Refills: 0, ec2 Product Selection Permitted - Zofran 4 mg Oral Tablet - take 1 tablet ORAL route every 12 hours As needed; 20 tablet; Refills: 0, ec2 Product Selection Permitted Signatures: Dispatcher [employer] EDLyndsey Mar RN RN kc6 Delroy Retana MD MD ec2 Julian Morales RN RN tm6 Corrections: (The following items were deleted from the chart) 15:45 15:45 Transvaginal Ob+US.RAD.BRZ ordered. EDMS EDMS 15:45 15:45 Urinalysis W/Microscopic+U.LAB.BRZ ordered. EDMS EDMS
[2024-01-10] MEDS ORDERED: FLUCONAZOLE 100 MG TAB ONE (18:37)
[2024-01-10 23:02] VITALS: TEMP 99
[2024-01-10 23:13] VITALS: BP 100/69; O2SAT 98
[2024-01-14 09:54] LABS: C.trachomatis RNA,TMA Not Detected (Not Detected); N.gonorrhoeae RNA,TMA Not Detected (Not Detected)
== END 2024-01-10 18:44 | disposition home or self-care (01) ==
LOC: ER 15:37
DX: O23.41 Unspecified infection of urinary tract in pregnancy, first trimester (principal); N39.0 Urinary tract infection, site not specified; E87.6 Hypokalemia; Z3A.12 12 weeks gestation of pregnancy
CPT/HCPCS: 96361; 87088; 85025; 81001; 87086; 80048; 36415; 87210; 84702; 87590; 87490; 76815; 96374; 99284; J2765; J7030